=== PATIENT | female | born 1960 | race African-American/Black ===

== ENCOUNTER 2016-06-18 11:55 | Emergency (ER) | payer OTHER ==
[2016-06-18 12:09] VITALS: TEMP 98.5; BMI 30.2
--- NOTE | 2016-06-18 13:33 | PDOC ---
History of Present Illness - History of Present Illness Initial Comments: 06/18/16 16:48 "The patient is a 55 year old female, with a significant past medical history of asthma, GERD, hypertension, bipolar disorder, s/p c-spine surgery, who presents to the emergency department with continued wheezing, cough, chest congestion, subjective fever and chills after finishing 7 days of oral antibiotics for clinical pneumonia diagnosed at her PCP office. She reports her cough is persistent and productive of white and green sputum. The patient reports chest tightness and increasing pain to her lateral chest wall and midsternal region when she coughs. Pt has no pain otherwise when she is not coughing. She denies chest pain, shortness of breath, headache and dizziness. She denies fever, chills, nausea, vomit, diarrhea and constipation. She denies dysuria, frequency, urgency and hematuria. Allergies: acetaminophen, erythromycin, Toradol, Vicodin, Penicillin Social history: tobacco and marijuana use daily PCP - Dr. Ambriz " <Silvia Chapman - Last Filed: 06/18/16 16:48> <Leo Romero - Last Filed: 06/18/16 17:48> - General Chief Complaint: Cold Symptoms Stated Complaint: PNEUMONIA Time Seen by Provider: 06/18/16 12:52 Past History <Silvia Chapman - Last Filed: 06/18/16 16:48> - Past Medical History Anemia: No Asthma: Yes Cancer: No Cardiac Disorders: No CVA: No COPD: No CHF: No Dementia: No Diabetes: No GI Disorders: Yes (gerd) Disorders: No HTN: Yes (on meds) Hypercholesterolemia: Yes Liver Disease: No Psychiatric Problems: Yes (bipolar) Suicide Attempt (Hx): No Seizures: No Thyroid Disease: No - Surgical History Abdominal Surgery: Yes Appendectomy: No Cardiac Surgery: No Cholecystectomy: Yes (1999) Lung Surgery: No Neurologic Surgery: Yes (cervical discectomy and decompression 2012) Orthopedic Surgery: Yes (C-Spine) - Immunization History Immunization Up to Date: Yes - Psycho/Social/Smoking Cessation Hx Anxiety: No Suicidal Ideation: No Smoking Status: No Smoking History: Current every day smoker Years of Tobacco Use: 10 Have you smoked in the past 12 months: Yes Number of Cigarettes Smoked Daily: 1 Cigars Per Day: 0 Information on smoking cessation initiated: No 'Breaking Loose' booklet given: 10/28/16 Hx Alcohol Use: No Drug/Substance Use Hx: Yes Substance Use Type: Cocaine, Marijuana Hx Substance Use Treatment: Yes (2007 rehab) <Leo Romero - Last Filed: 06/18/16 17:48> - Past Medical History Allergies/Adverse Reactions: Allergies Allergy/AdvReac Type Severity Reaction Status Date / Time aspirin Allergy Hives Verified 06/18/16 12:06 cyclobenzaprine HCl Allergy Hives Verified 06/18/16 12:06 [From Flexeril] erythromycin base Allergy Hives Verified 06/18/16 12:06 [Erythromycin Base] iodine [Iodine] Allergy Hives Verified 06/18/16 12:06 ketorolac tromethamine Allergy Hives Verified 06/18/16 12:06 [From Toradol] Penicillins Allergy Hives Verified 06/18/16 12:06 propoxyphene napsylate Allergy Hives Verified 06/18/16 12:06 [From Darvocet-N 100] theophylline anhydrous Allergy Hives Verified 06/18/16 12:06 [From Seth-Dur] doxycycline AdvReac Itching Verified 06/18/16 12:06 lactose [Lactose] AdvReac Verified 06/18/16 12:06 SEAFOOD Allergy Hives Uncoded 06/18/16 12:06 Home Medications: Ambulatory Orders Albuterol 2.5/Ipratropium 0.5 [Duoneb -] 1 neb IH QID 12/18/14 Atorvastatin Ca [Lipitor] 40 mg PO HS 12/18/14 Carbamazepine 100 mg PO DAILY 12/18/14 Docusate Sodium [Colace -] 300 mg PO DAILY 12/18/14 Fluticasone/Salmeterol [Advair 250-50 Diskus] 1 each IH DAILY 12/18/14 Olmesartan/Amlodipin/Hcthiazid [Tribenzor 20-5-12.5 mg Tablet] 1 each PO DAILY 12/18/14 Sertraline HCl [Zoloft] 100 mg PO BID 12/18/14 Trazodone HCl [Oleptro ER] 150 mg PO HS 12/18/14 FENTANYL 50mcg PATCH [DURAGESIC 50mcg PATCH -] 1 each TD Q72H 12/03/15 Carbamazepine Xr [Tegretol XR -] 200 mg PO HS 12/04/15 Clonazepam [Klonopin -] 0.5 mg PO DAILY PRN 02/07/16 Oxycodone HCl/Acetaminophen [Percocet 10-325 mg Tablet] 1 each PO TID PRN Respiratory Specific PMHX - Complaint Specific PMHX Angina: No <Leo Romero - Last Filed: 06/18/16 17:48> Review of Systems - Review of Systems Able to Perform ROS?: Yes Comments:: 06/18/16 16:48 CONSTITUTIONAL: (+) subjective fever, Chills, No reported: Diaphoresis, Generalized Weakness, Malaise, Loss of Appetite HEENT: No reported: Rhinorrhea, Nasal Congestion, Throat Pain, Throat Swelling, Difficulty Swallowing, Mouth Swelling, Ear Pain, Eye Pain, Visual Changes CARDIOVASCULAR: No reported: Chest pain, Syncope, Palpitations, Irregular Heart Rate, Lightheadedness, Peripheral Edema RESPIRATORY: (+) Cough, wheezing, and chest congestion. No reported: Shortness of Breath, SOB with Exertion, Orthopnea, Wheezing, Stridor, Hemoptysis GASTROINTESTINAL: No reported: Abdominal pain, Abdominal Distension, Nausea, Vomiting, Diarrhea, Constipation, Melena, Hematochezia GENITOURINARY: No reported: Dysuria, Frequency, Urgency, Hesitancy, Flank Pain, Genital Pain MUSCULOSKELETAL: No reported: Myalgia, Arthralgia, Joint Swelling, Back pain, Neck Pain SKIN: No reported: Rash, Itching, Pallor HEMEATOLOGIC/IMMUNOLOGIC: No reported: Easy Bleeding, Easy Bruising, Lymphadenopathy, Frequent infections ENDOCRINE: No reported: Unexplained Weight Gain, Unexplained Weight Loss, Heat Intolerance , Cold Intolerance NEUROLOGIC: No reported: Headache, Focal Weakness, Paresthesias, Vertigo, Lightheadedness, Unsteady Gait, Seizure, Mental Status Changes, Incontinence PSYCHIATRIC: No reported: Anxiety, Depression <Silvia Chapman - Last Filed: 06/18/16 16:48> *Physical Exam - Vital Signs Last Vital Signs Temp Pulse Resp BP Pulse Ox 98.5 F 59 L 20 149/71 99 06/18/16 12:06 06/18/16 12:06 06/18/16 12:06 06/18/16 12:06 06/18/16 12:06 - Physical Exam Comments: 06/18/16 16:48 GENERAL: The patient is awake, alert, and fully oriented, Nontoxic - in no acute distress. HEAD: Normocephalic, atraumatic. EYES: extraocular movements intact, sclera anicteric, conjunctiva clear. ENT: (+) enlarged tonsils bilaterally w/o erythema or induration,. Normal voice , Moist mucous membranes. NECK: Normal range of motion, supple LUNGS: Breath sounds equal, clear to auscultation bilaterally. No wheezes, no rhonchi, no rales. HEART: Regular rate and rhythm, without murmur, rub or gallop. ABDOMEN: Soft, nontender, normoactive bowel sounds. No guarding, no rebound.No CVA tenderness EXTREMITIES: Normal range of motion, no edema. No clubbing or cyanosis. No cords, erythema, or tenderness. NEUROLOGICAL: No facial assymetry, Normal speech, PSYCH: Normal mood, normal affect. SKIN: Warm, Dry, normal turgor, <Silvia Chapman - Last Filed: 06/18/16 16:48> - Vital Signs Last Vital Signs Temp Pulse Resp BP Pulse Ox 98.5 F 59 L 20 149/71 99 06/18/16 12:06 06/18/16 12:06 06/18/16 12:06 06/18/16 12:06 06/18/16 12:06 <Leo Romero - Last Filed: 06/18/16 17:48> Heart Score/ECG Review - ECG Impressions Comment:: 06/18/16 13:50 Twelve-lead EKG was performed and reviewed by me. There is normal sinus rhythm Rate of 54 Left axis deviation The intervals are normal. There is normal R wave progression There are no ST or T wave abnormalities. <Leo Romero - Last Filed: 06/18/16 17:48> ED Treatment Course - LABORATORY CBC & Chemistry Diagram: 06/18/16 13:22 06/18/16 13:22 - ADDITIONAL ORDERS Additional order review: Laboratory Results 06/18/16 13:22 Sodium 144 Potassium 3.9 Chloride 106 Carbon Dioxide 30 Anion Gap 8 BUN 7 Creatinine 0.5 L Creat Clearance w eGFR > 60 Random Glucose 90 Calcium 8.7 Total Bilirubin 0.2 D AST 19 D ALT 24 D Alkaline Phosphatase 70 Total Protein 6.8 Albumin 3.8 06/18/16 13:29 Influenza Types A,B Antigen (OCTAVIANO) - Final Nasopharyngeal Swab - Final 06/18/16 13:22 RBC 3.57 L MCV 91.0 MCHC 32.8 RDW 14.2 MPV 7.7 Neutrophils % 50.1 Lymphocytes % 44.3 H D Monocytes % 3.6 L Eosinophils % 1.5 Basophils % 0.5 - Medications Given in the ED: ED Medications Discontinued Medications Generic Name Dose Route Start Last Admin Trade Name Jayson PRN Reason Stop Dose Admin Acetaminophen 650 mg 06/18/16 13:49 06/18/16 14:44 Tylenol - PO 06/18/16 13:50 Not Given ONCE ONE Albuterol/Ipratropium 1 amp 06/18/16 13:35 06/18/16 14:43 Duoneb - NEB 06/18/16 13:36 1 amp ONCE ONE Administration Sodium Chloride 1,000 mls @ 1,000 mls/hr 06/18/16 13:49 06/18/16 14:43 Normal Saline - IV 06/18/16 14:48 1,000 mls/hr .Q1H ONE Administration <Silvia Chapman - Last Filed: 06/18/16 16:48> - LABORATORY CBC & Chemistry Diagram: 06/18/16 13:22 06/18/16 13:22 - RADIOLOGY Radiology Studies Ordered: Category Date Time Status CHEST X-RAY PORTABLE* [RAD] Stat Radiology 06/18/16 13:17 Ordered <Leo Romero - Last Filed: 06/18/16 17:48> Medical Decision Making - Medical Decision Making 06/18/16 13:50 55-year-old female history of hl, htn, asthma, chronic back pain on fentanyl patch, bipolar sent to the ED for evaluation of sob/cough for the past week - initially had significant nasal congetion, and cough productive of yellowish/ green sputum with subjective fever/chills, +sick contacts (daughter with sypmtoms week prior to her). On exam the pt is well appearing in no acute distress with clear lungs and normal vitals. suspect likely viral syndrome, possible influenza, will obtain xray to r/o pna will treat supportively with fluids, tylenol will reassess A portion of this note was documented by scribe services under my direction. I have reviewed the details of the note, within reason, and agree with the documentation with the following case summary and management plan written by me 06/18/16 16:08 labs unremarakble cxr clear flu negative suspect viral syndrome/uri will d/c with supportive mangaement at home 06/18/16 16:46 pt feeling significantly improved currently asypmtomatic will d/c with pmd fu return precautions were discussed I discussed the physical exam findings, ancillary test results and final diagnoses with the patient. I answered all of the patient's questions. The patient was satisfied with the care received and felt comfortable with the discharge plan and treatment plan. The patient will call their primary care physician within 24 hours to arrange follow-up and will return to the Emergency Department with any new, persistent or worsening symptoms. <Leo Romero - Last Filed: 06/18/16 17:48> *DC/Admit/Observation/Transfer - Attestations Scribe Attestion: 06/18/16 16:49 Documentation prepared by Silvia Chapman, acting as clinical medical transcriptionist for Leo Romero MD, MD <Silvia Chapman - Last Filed: 06/18/16 16:48> - Discharge Dispostion Admit: No <Leo Romero - Last Filed: 06/18/16 17:48> Diagnosis at time of Disposition: Upper respiratory infection Qualifiers: URI type: unspecified viral URI Qualified Code(s): J06.9 - Acute upper respiratory infection, unspecified - Discharge Dispostion Disposition: HOME Condition at time of disposition: Improved - Referrals Referrals: Myrna Ambriz MD [Primary Care Provider] - - Patient Instructions Printed Discharge Instructions: DI for Viral Upper Respiratory Infection -- Adult Additional Instructions: Return to the emergency department immediately with ANY new, persistent or worsening symptoms. You MUST call and follow up with your doctor tomorrow for further evaluation of your symptoms. Results were discussed with you. Please make sure your doctor reviews the results of your emergency evaluation. If you had any xrays during your visit, it was read preliminarily by myself, a Radiologist will review it and if there are any additional findings we will call you. Print Language: [id number]
[2016-06-18] MEDS ORDERED: ALBUTEROL SO4 2.5/IPRATROPIUM 0.5 INH SOL 3 ML VIAL.NEB. NEB ONE ×2 (13:35→14:37)
[2016-06-18 13:39] LABS: BASOPHIL 0.5 % (0-2.0); EOSINOPHIL 1.5 % (0-4.5); MCH 29.9 pg (25.7-33.7); MCHC 32.8 g/dl (32.0-36.0); MEAN PLT VOLUME 7.7 fl (7.5-11.1); NEUTROPHILS 50.1 % (42.8-82.8); PLATELET COUNT 160 K/MM3 (134-434); RDW 14.2 % (11.6-15.6)
[2016-06-18] MEDS ORDERED: SODIUM CHLORIDE 1,000 ML IV ONE (13:49)
[2016-06-18] MEDS ORDERED: ACETAMINOPHEN 325 MG TABLET (FP) PO ONE (13:49)
[2016-06-18 14:04] LABS: ALBUMIN 3.8 g/dl (3.4-5.0); ALK PHOS 70 U/L (45-117); ANION GAP 8 (8-16); BILIRUBIN,TOTAL 0.2 mg/dL (0.2-1.0); CALCIUM 8.7 mg/dL (8.5-10.1); CO2 30 mmol/L (21-32); CREATININE 0.5 mg/dL (0.55-1.02); GLUCOSE,RANDOM 90 mg/dL (74-106); SGOT/AST 19 U/L (15-37); SGPT/ALT 24 U/L (12-78); TOT PROT 6.8 g/dl (6.4-8.2)
[2016-06-18] MEDS ORDERED: ACETAMINOPHEN 325 MG TABLET (FP) ONE (14:37)
[2016-06-18] MEDS ORDERED: KETOROLAC TROMETHAMINE 30 MG/1 ML VIAL ONE (15:15)
--- NOTE | 2016-06-18 15:57 | EKG ---
Test Reason : Blood Pressure : / mmHG Vent. Rate : 054 BPM Atrial Rate : 054 BPM P-R Int : 178 ms QRS Dur : 082 ms QT Int : 448 ms P-R-T Axes : 062 -34 065 degrees QTc Int : 424 ms POOR DATA QUALITY, INTERPRETATION MAY BE ADVERSELY AFFECTED SINUS BRADYCARDIA LEFT AXIS DEVIATION ABNORMAL ECG WHEN COMPARED WITH ECG OF 18-JUN-2016 12:20, NO SIGNIFICANT CHANGE WAS FOUND Confirmed by PATRICIO MALLORY, LOI ([id number]) on 06/18/2016 3:57:02 PM Referred By: Confirmed By:LOI CURRY MD
[2016-06-18] MEDS ORDERED: diphenhydrAMINE HCL 25 MG CAPSULE (FP) PO ONE (16:16)
[2016-06-18 17:12] VITALS: BP 152/68; PULSE 72
--- NOTE | 2016-06-20 14:57 | EKG ---
Test Reason : Blood Pressure : / mmHG Vent. Rate : 052 BPM Atrial Rate : 052 BPM P-R Int : 168 ms QRS Dur : 086 ms QT Int : 448 ms P-R-T Axes : 068 -21 062 degrees QTc Int : 416 ms SINUS BRADYCARDIA POOR R WAVE PROGRESSION WHEN COMPARED WITH ECG OF 04-DEC-2015 12:35, NO SIGNIFICANT CHANGE WAS FOUND Confirmed by AMARILIS DUMONT MD ([id number]) on 06/20/2016 2:57:21 PM Referred By: Confirmed By:AMARILIS DUMONT MD
== END 2016-06-18 17:13 | disposition home or self-care (01) ==
LOC: JER 11:55
PROC: 3E0337Z Introduction of Electrolytic and Water Balance Substance into Peripheral Vein, Percutaneous Approach (ICD-10-PCS; principal; 2016-06-18)
PROC: 3E0F7GC Introduction of Other Therapeutic Substance into Respiratory Tract, Via Natural or Artificial Opening (ICD-10-PCS; 2016-06-18)
DX: J06.9 Acute upper respiratory infection, unspecified (principal); B97.89 Other viral agents as the cause of diseases classified elsewhere; I10 Essential (primary) hypertension; E78.5 Hyperlipidemia, unspecified; E78.00 Pure hypercholesterolemia, unspecified; J45.909 Unspecified asthma, uncomplicated; F31.9 Bipolar disorder, unspecified; M54.5 Low back pain
CPT/HCPCS: 36415; 71010-TC; 80053; 85025; 87040; 87804; 93005; 93010; 99284-25

== ENCOUNTER 2016-09-04 23:58 | Emergency (ER) | payer OTHER ==
[2016-09-05 00:15] VITALS: BP 120/85; PULSE 81; TEMP 99.5; BMI 26.4
[2016-09-05] MEDS ORDERED: ACETAMINOPHEN 1000 MG/100 ML VIAL (NON FORMULARY) IVPB ONE (00:58)
[2016-09-05] MEDS ORDERED: morphine CARPU-JECT 2 MG/1 ML DISP.SYRIN IVPUSH ONE (00:58)
[2016-09-05] MEDS ORDERED: MAG HYDROX/AL HYDROX/SIMETH 30 ML UNIT-DOSE CUP PO ONE (01:00)
[2016-09-05] MEDS ORDERED: FAMOTIDINE 20 MG/50 ML IVPB 50 ML IVPB ONE ×2 (01:00→01:19)
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
[2016-09-05] MEDS ORDERED: morphine CARPU-JECT 2 MG/1 ML DISP.SYRIN ONE (01:18)
[2016-09-05] MEDS ORDERED: MAG HYDROX/AL HYDROX/SIMETH 30 ML UNIT-DOSE CUP ONE (01:19)
[2016-09-05] MEDS ORDERED: ACETAMINOPHEN INJECTION 100 ML IVPB ONE (01:19)
[2016-09-05] MEDS ORDERED: ONDANSETRON 4 MG TABLET PO ONE (03:12)
== END 2016-09-05 04:58 | disposition left against medical advice (07) ==
LOC: JER 23:58
PROC: 3E033GC Introduction of Other Therapeutic Substance into Peripheral Vein, Percutaneous Approach (ICD-10-PCS; principal; 2016-09-04)
PROC: 3E033NZ Introduction of Analgesics, Hypnotics, Sedatives into Peripheral Vein, Percutaneous Approach (ICD-10-PCS; 2016-09-04)
PROC: 3E033NZ Introduction of Analgesics, Hypnotics, Sedatives into Peripheral Vein, Percutaneous Approach (ICD-10-PCS; 2016-09-04)
DX: R10.32 Left lower quadrant pain (principal); I10 Essential (primary) hypertension; F31.9 Bipolar disorder, unspecified; J45.909 Unspecified asthma, uncomplicated; K21.9 Gastro-esophageal reflux disease without esophagitis
CPT/HCPCS: 96365; 96375; 99282-25

== ENCOUNTER 2016-09-05 13:10 | Emergency (ER) | payer OTHER ==
[2016-09-05 13:58] VITALS: TEMP 98.5; BMI 30.9
[2016-09-05] MEDS ORDERED: ONDANSETRON *ODT* 4 MG TABLET ONE (14:19)
[2016-09-05] MEDS ORDERED: ONDANSETRON *ODT* 4 MG TABLET SL ONE (14:26)
--- NOTE | 2016-09-05 14:27 | PDOC ---
History of Present Illness - General Chief Complaint: Pain Stated Complaint: ABDOMINAL PAIN Time Seen by Provider: 09/05/16 13:55 History Source: Patient Exam Limitations: No Limitations - History of Present Illness Initial Comments: 09/05/16 14:21 Patient's return to emergency department with multiple complaints . Patient came to emergency department via ambulance last night with multiple complaints primarily abdominal pain but was belligerent, combative, and uncooperative with any testing or care. Patient left the emergency department AGAINST MEDICAL ADVICE with IV, refusing to allow any provider remove the catheter. Police was notified, and Empress returned to patient's home and remove the catheter. Patient rested at home for a few hours, but then called EMS to return to her home and bring her back to the hospital with continued complaints of abdominal pain. With exam patient is alert, has been cooperative with questioning and states that she feels constipated, although had a normal bowel movement today. Denies fever but has felt feverish, states is coughing with no phlegm. 09/05/16 14:34 09/05/16 14:38 09/08/16 14:37 Occurred: reports: just prior to arrival Severity: reports: mild Pain Location: reports: none, abdomen Method of Injury: Yes: unknown Modifying Factors: improves with: None Loss of Consciousness: no loss of consciousness Associated Symptoms (Fall): denies symptoms, headache Past History - Travel Traveled outside of the country in the last 30 days: No Close contact w/someone who was outside of country & ill: No - Past Medical History Allergies/Adverse Reactions: Allergies Allergy/AdvReac Type Severity Reaction Status Date / Time aspirin Allergy Hives Verified 09/05/16 13:28 cyclobenzaprine HCl Allergy Hives Verified 09/05/16 13:28 [From Flexeril] erythromycin base Allergy Hives Verified 09/05/16 13:28 [Erythromycin Base] iodine [Iodine] Allergy Hives Verified 09/05/16 13:28 ketorolac tromethamine Allergy Hives Verified 09/05/16 13:28 [From Toradol] Penicillins Allergy Hives Verified 09/05/16 13:28 propoxyphene napsylate Allergy Hives Verified 09/05/16 13:28 [From Darvocet-N 100] theophylline anhydrous Allergy Hives Verified 09/05/16 13:28 [From Seth-Dur] doxycycline AdvReac Itching Verified 09/05/16 13:28 lactose [Lactose] AdvReac Verified 09/05/16 13:28 SEAFOOD Allergy Hives Uncoded 09/05/16 13:28 Home Medications: Ambulatory Orders Atorvastatin Ca [Lipitor] 40 mg PO HS 12/18/14 Fluticasone/Salmeterol [Advair 250-50 Diskus] 1 each IH BID 12/18/14 Olmesartan/Amlodipin/Hcthiazid [Tribenzor 20-5-12.5 mg Tablet] 1 each PO DAILY 12/18/14 Sertraline HCl [Zoloft] 200 mg PO DAILY 12/18/14 Trazodone HCl [Oleptro ER] 150 mg PO HS 12/18/14 Carbamazepine Xr [Tegretol XR -] 100 mg PO AM 12/04/15 Clonazepam [Klonopin -] 1 mg PO BID 02/07/16 Albuterol 0.083% Nebulizer Karin [Ventolin 0.083% Nebulizer Soln -] 1 amp NEB TID PRN 09/05/16 Guaifenesin/Dextromethorphan [Tussin Dm Syrup] 5 ml PO Q4HWA PRN 09/05/16 Hydrocodone/Acetaminophen [Vicodin 5-300 mg Tablet] 1 each PO QID PRN 09/05/16 Omeprazole 40 mg PO DAILY 09/05/16 Sodium Phosphate/Na Biphos [Fleet Adult Rectal Enema -] 133 ml RC ONCE #2 enema 09/05/16 Anemia: No Asthma: Yes Cancer: No Cardiac Disorders: No CVA: No COPD: No CHF: No Dementia: No Diabetes: No GI Disorders: Yes (gerd) Disorders: No HTN: Yes (on meds) Hypercholesterolemia: Yes Liver Disease: No Psychiatric Problems: Yes (bipolar) Suicide Attempt (Hx): No Seizures: No Thyroid Disease: No - Surgical History Abdominal Surgery: Yes Appendectomy: No Cardiac Surgery: No Cholecystectomy: Yes (1999) Lung Surgery: No Neurologic Surgery: Yes (cervical discectomy and decompression 2012) Orthopedic Surgery: Yes (C-Spine) - Immunization History Immunization Up to Date: Yes - Psycho/Social/Smoking Cessation Hx Anxiety: No Suicidal Ideation: No Smoking Status: No Smoking History: Former smoker Years of Tobacco Use: 10 Have you smoked in the past 12 months: No Number of Cigarettes Smoked Daily: 1 Cigars Per Day: 0 Information on smoking cessation initiated: No 'Breaking Loose' booklet given: 02/07/16 Hx Alcohol Use: No Drug/Substance Use Hx: No Substance Use Type: Cocaine, Marijuana Hx Substance Use Treatment: Yes (2007 rehab) Trauma Specific PMHX - Complaint Specific PMHX Arthritis: Yes Review of Systems - Review of Systems Able to Perform ROS?: Yes Is the patient limited Maori proficient: Yes Constitutional: Yes: Symptoms Reported, See HPI, Malaise HEENTM: Yes: Symptoms Reported Respiratory: Yes: Symptoms reported ABD/GI: Yes: Symptoms Reported, See HPI, Constipated, Nausea : Yes: Symptoms Reported Musculoskeletal: Yes: See HPI. No: Symptoms Reported Integumentary: Yes: Symptoms Reported Psychiatric: Yes: Anxiety, Emotional Problems All Other Systems: Reviewed and Negative *Physical Exam - Vital Signs Last Vital Signs Temp Pulse Resp BP Pulse Ox 98.5 F 70 19 147/82 97 09/05/16 13:35 09/05/16 13:35 09/05/16 13:35 09/05/16 13:35 09/05/16 13:35 - Physical Exam General Appearance: Yes: Nourished, Appropriately Dressed HEENT: positive: EOMI, MACIEJ, Normal ENT Inspection, TMs Normal Neck: positive: Supple. negative: Tender, Lymphadenopathy (R), Lymphadenopathy (L) Respiratory/Chest: positive: Lungs Clear, Normal Breath Sounds Cardiovascular: positive: Regular Rhythm Gastrointestinal/Abdominal: positive: Normal Bowel Sounds, Soft. negative: Tender, Guarding, Rebound (no rebound or guarding), Tenderness, Hepatomegaly, Spleenomegaly Extremity: positive: Normal Capillary Refill, Normal Inspection, Normal Range of Motion Integumentary: positive: Normal Color, Pale Neurologic: positive: engineering inspector II-XII NML intact, Fully Oriented, Alert, Normal Mood/ Affect, Normal Response, Motor Strength 5/5 Progress Note - Progress Note Progress Note: Patient with abdominal pain and concerns of constipation. Will obtain urinalysis to rule out urinary tract infection, as points to suprapubic area, and flat and upright. Medical Decision Making - Medical Decision Making 09/08/16 14:39 Flat and upright shows significant stool in transverse and descending colon. Urinalysis is negative. Patient given fleets enema to take home, and prescription for more. Patient has used those in the past and understands her use and will follow up with her PCP *DC/Admit/Observation/Transfer Diagnosis at time of Disposition: Generalized abdominal pain Constipation Qualifiers: Constipation type: other constipation type Qualified Code(s): K59.09 - Other constipation - Discharge Dispostion Disposition: HOME Condition at time of disposition: Stable Admit: No - Prescriptions Prescriptions: Sodium Phosphate/Na Biphos [Fleet Adult Rectal Enema -] 133 ml RC ONCE #2 enema - Referrals Referrals: Daphney Saenz [Primary Care Provider] - - Patient Instructions Printed Discharge Instructions: DI for Constipation Additional Instructions: Rest, drink lots of fluids: Teas, water, soups Armida aurelio, carbonated beverages for the bubbles May try peppermint teas Avoid heavy , spicy or fatty foods until symptoms have resolved Avoid contact with others until fevers and symptoms resolved Lots of handwashing and good hygiene USe Fleets at home Continue [id number] medications for symptomatic relief Tylenol or Motrin for fever and pain Followup with private physician in one to 2 days as needed Return to emergency department for worsened symptoms, fevers, dehydration
[2016-09-05] MEDS ORDERED: ACETAMINOPHEN 650 MG/20.3 ML ORAL SOLUTION (CUPS) ONE (14:40)
[2016-09-05] MEDS ORDERED: ACETAMINOPHEN 325 MG TABLET (FP) PO ONE (14:45)
[2016-09-05] MEDS ORDERED: QUEtiapine FUMARATE 100 MG TABLET (FP) PO ONE (15:13)
[2016-09-05] MEDS ORDERED: QUEtiapine FUMARATE 100 MG TABLET (FP) ONE (15:25)
[2016-09-05 15:44] LABS: URINE APPEARANCE CLEAR; URINE BILIRUBIN NEGATIVE (NEGATIVE); URINE BLOOD NEGATIVE (NEGATIVE); URINE COLOR DKYELLOW; URINE GLUCOSE (UA) NEGATIVE (NEGATIVE); URINE KETONE TRACE (NEGATIVE); URINE LEUK ESTERASE NEGATIVE (NEGATIVE); URINE NITRITE NEGATIVE (NEGATIVE); URINE UROBILINOGEN 4.0 E.U/dl E.U./dl (0.2-1.0)
[2016-09-05 15:48] LABS: URINE PROTEIN 1+ (NEGATIVE)
[2016-09-05 15:50] LABS: URINE MUCUS MODERATE; URINE WBC 1 /hpf (3-5)
[2016-09-05] MEDS ORDERED: SODIUM PHOSPHATE/NA BIPHOS 133 ML ENEMA PR ONE (16:03)
[2016-09-05 16:46] VITALS: BP 124/57; PULSE 61
--- NOTE | 2016-09-14 11:45 | EKG ---
Test Reason : Blood Pressure : / mmHG Vent. Rate : 071 BPM Atrial Rate : 071 BPM P-R Int : 156 ms QRS Dur : 090 ms QT Int : 416 ms P-R-T Axes : 072 -29 073 degrees QTc Int : 452 ms NORMAL SINUS RHYTHM NORMAL ECG WHEN COMPARED WITH ECG OF 18-JUN-2016 13:43, NO SIGNIFICANT CHANGE WAS FOUND Confirmed by SMOOTH SHERWOOD MD ([id number]) on 09/14/2016 11:45:39 AM Referred By: Confirmed By:SMOOTH SHERWOOD MD
== END 2016-09-05 16:46 | disposition home or self-care (01) ==
LOC: JER 13:10
DX: R10.84 Generalized abdominal pain (principal); K21.9 Gastro-esophageal reflux disease without esophagitis; F31.9 Bipolar disorder, unspecified; J45.909 Unspecified asthma, uncomplicated; I10 Essential (primary) hypertension; E78.00 Pure hypercholesterolemia, unspecified
CPT/HCPCS: 74020-TC; 81003; 81015; 87086; 93005; 93010; 99282-25

== ENCOUNTER 2016-12-15 13:55 | Emergency (ER) | payer OTHER ==
[2016-12-15 14:40] VITALS: BP 126/82; PULSE 65; TEMP 98.3; BMI 26.1
--- NOTE | 2016-12-15 14:55 | PDOC ---
History of Present Illness - General Chief Complaint: Pain Stated Complaint: INJURY Time Seen by Provider: 12/15/16 14:49 History Source: Patient Exam Limitations: No Limitations - History of Present Illness Initial Comments: 12/15/16 14:51 patient Well-known to me and currently involved in pain management program for chronic back pain. Comes to this emergency Department with complaints of neck and left shoulder pain status post injury occurred at home yesterday. States beer fell off while striking her in the head and causing her to fall backwards and wrenching her back. Is here requesting pain medication and antispasmodic medication. Has appointment with Dr. Bajwa and in 2 days and her pain management physician on December 21. 12/15/16 22:00 Occurred: reports: yesterday Severity: reports: mild, moderate Modifying Factors: improves with: None Associated Symptoms (Fall): denies symptoms Past History - Travel Traveled outside of the country in the last 30 days: No Close contact w/someone who was outside of country & ill: No - Past Medical History Allergies/Adverse Reactions: Allergies Allergy/AdvReac Type Severity Reaction Status Date / Time aspirin Allergy Hives Verified 09/05/16 13:28 cyclobenzaprine HCl Allergy Hives Verified 09/05/16 13:28 [From Flexeril] erythromycin base Allergy Hives Verified 09/05/16 13:28 [Erythromycin Base] iodine [Iodine] Allergy Hives Verified 09/05/16 13:28 ketorolac tromethamine Allergy Hives Verified 09/05/16 13:28 [From Toradol] Penicillins Allergy Hives Verified 09/05/16 13:28 propoxyphene napsylate Allergy Hives Verified 09/05/16 13:28 [From Darvocet-N 100] theophylline anhydrous Allergy Hives Verified 09/05/16 13:28 [From Seth-Dur] doxycycline AdvReac Itching Verified 09/05/16 13:28 lactose [Lactose] AdvReac Verified 09/05/16 13:28 SEAFOOD Allergy Hives Uncoded 09/05/16 13:28 Home Medications: Ambulatory Orders Atorvastatin Ca [Lipitor] 40 mg PO HS 12/18/14 Fluticasone/Salmeterol [Advair 250-50 Diskus] 1 each IH BID 12/18/14 Olmesartan/Amlodipin/Hcthiazid [Tribenzor 20-5-12.5 mg Tablet] 1 each PO DAILY 12/18/14 Sertraline HCl [Zoloft] 200 mg PO DAILY 12/18/14 Trazodone HCl [Oleptro ER] 150 mg PO HS 12/18/14 Carbamazepine Xr [Tegretol XR -] 100 mg PO AM 12/04/15 Clonazepam [Klonopin -] 1 mg PO HS PRN 02/07/16 Albuterol 0.083% Nebulizer Karin [Ventolin 0.083% Nebulizer Soln -] 1 amp NEB TID PRN 09/05/16 Omeprazole 40 mg PO DAILY 09/05/16 Docusate Sodium [Colace -] 100 mg PO TID 10/23/16 Oxycodone HCl/Acetaminophen [Percocet 10-325 mg Tablet] 1 each PO TID PRN #90 tablet MDD 3 11/23/16 Methocarbamol [Robaxin -] 1,500 mg PO Q8H PRN #10 tablet 12/15/16 Oxycodone HCl/Acetaminophen [Percocet 5-325 mg Tablet -] 1 - 2 tab PO Q4H PRN # 7 tablet MDD 4 12/15/16 Anemia: No Asthma: Yes Cancer: No Cardiac Disorders: No CVA: No COPD: No CHF: No Dementia: No Diabetes: No GI Disorders: Yes (gerd) Disorders: No HTN: Yes (on meds) Hypercholesterolemia: Yes Liver Disease: No Psychiatric Problems: Yes (bipolar) Suicide Attempt (Hx): No Seizures: No Thyroid Disease: No - Surgical History Abdominal Surgery: Yes Appendectomy: No Cardiac Surgery: No Cholecystectomy: Yes (1999) Lung Surgery: No Neurologic Surgery: Yes (cervical discectomy and decompression 2012) Orthopedic Surgery: Yes (C-Spine) - Immunization History Immunization Up to Date: Yes - Psycho/Social/Smoking Cessation Hx Anxiety: No Suicidal Ideation: No Smoking Status: No Smoking History: Current every day smoker Years of Tobacco Use: 10 Have you smoked in the past 12 months: Yes Number of Cigarettes Smoked Daily: 3 Cigars Per Day: 0 Information on smoking cessation initiated: No 'Breaking Loose' booklet given: 02/07/16 Hx Alcohol Use: No Drug/Substance Use Hx: No Substance Use Type: Cocaine, Marijuana Hx Substance Use Treatment: Yes (2007 rehab) Trauma Specific PMHX - Complaint Specific PMHX Arthritis: Yes Review of Systems - Review of Systems Able to Perform ROS?: Yes Is the patient limited Armenian proficient: Yes Constitutional: Yes: See HPI. No: Symptoms Reported, Chills, Fever HEENTM: Yes: See HPI. No: Symptoms Reported Respiratory: Yes: See HPI. No: Symptoms reported Musculoskeletal: Yes: Symptoms Reported, See HPI, Back Pain, Joint Pain *Physical Exam - Vital Signs Last Vital Signs Temp Pulse Resp BP Pulse Ox 98.3 F 65 18 126/82 97 12/15/16 14:34 12/15/16 14:34 12/15/16 14:34 12/15/16 14:34 12/15/16 14:34 - Physical Exam General Appearance: Yes: Appropriately Dressed, Apparent Distress HEENT: positive: MACIEJ, Normal ENT Inspection, TMs Normal, Pharynx Normal Neck: positive: Supple, Other (no midline tenderness, has some mild tense musculature to the paravertebral spinous muscles, mild spasm palpated to the left side upper trapezius and base of sternocleidomastoid. Range of motion is intact). negative: Tender Cardiovascular: positive: Regular Rhythm Musculoskeletal: positive: Normal Inspection, Decreased Range of Motion, Other ( NECK AND LEFT SHOULDER AT Shoulder capsule. Reports is immobile and Left arm however able to lift over-shoulder and grab across the stretcher. Has strong grasp, flexion and extension). negative: Vertebral Tenderness Extremity: positive: Normal Inspection. negative: Normal Capillary Refill Integumentary: positive: Normal Color, Dry, Warm. negative: Ecchymosis, Bruising Neurologic: positive: frickertron checker II-XII NML intact, Fully Oriented, Normal Mood/Affect , Normal Response, Motor Strength 5/5 Progress Note - Progress Note Progress Note: Mild neck spasm, will treat with Robaxin 7 tablets, and given 7 Percocet tablets patient understands knees to follow-up with PMD and pain management for any further narcotics or other altering medications. *DC/Admit/Observation/Transfer Diagnosis at time of Disposition: Spasm of back muscles - Discharge Dispostion Disposition: HOME Condition at time of disposition: Stable Admit: No - Prescriptions Prescriptions: Oxycodone HCl/Acetaminophen [Percocet 5-325 mg Tablet -] 1 - 2 tab PO Q4H PRN # 7 tablet MDD 4 PRN Reason: Pain Methocarbamol [Robaxin -] 1,500 mg PO Q8H PRN #10 tablet PRN Reason: Muscle Spasms - Referrals Referrals: Daphney Saenz [Primary Care Provider] - - Patient Instructions Printed Discharge Instructions: DI for Back Spasm Additional Instructions: Rest, no heavy lifting or exercise until pain is resolved Hot soaks to neck and low back as often as possible/hot showers or Jacuzzis No massage or therapy until spasm is gone Continue Tylenol -3252 mg tablets every 6 hours for the next 3 days then as needed for pain and swelling Robaxin 2-750 mg tablet every 8 hours as needed for spasm If not significant improvement within 24 hours with medication and rest regime, followup with private physician for change in medications and /or therapy.
== END 2016-12-15 15:31 | disposition home or self-care (01) ==
LOC: JERFT 13:55
DX: M62.830 Muscle spasm of back (principal); F17.210 Nicotine dependence, cigarettes, uncomplicated; W18.39XA Other fall on same level, initial encounter; Y93.89 Activity, other specified; Y92.9 Unspecified place or not applicable; J45.909 Unspecified asthma, uncomplicated; K21.9 Gastro-esophageal reflux disease without esophagitis; E78.00 Pure hypercholesterolemia, unspecified; I10 Essential (primary) hypertension; F31.9 Bipolar disorder, unspecified
CPT/HCPCS: 99281-25

== ENCOUNTER 2016-12-18 20:17 | Emergency (ER) | payer OTHER ==
[2016-12-18 20:54] VITALS: BP 154/82; PULSE 84; TEMP 97.6; BMI 28.8
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
[2016-12-18] MEDS ORDERED: HYDROmorphone HCL CARPU-JECT 2 MG/1 ML DISP.SYRIN IVPUSH ONE (22:29)
[2016-12-18] MEDS ORDERED: HYDROmorphone HCL CARPU-JECT 2 MG/1 ML DISP.SYRIN ONE (22:43)
[2016-12-19] MEDS ORDERED: ONDANSETRON 4 MG TABLET PO ONE (00:54)
[2016-12-19] MEDS ORDERED: ONDANSETRON *ODT* 4 MG TABLET ONE (00:58)
[2016-12-19] MEDS ORDERED: ONDANSETRON *ODT* 4 MG TABLET SL ONE (01:06)
== END 2016-12-19 01:51 | disposition home or self-care (01) ==
LOC: JER 20:17
PROC: 3E033NZ Introduction of Analgesics, Hypnotics, Sedatives into Peripheral Vein, Percutaneous Approach (ICD-10-PCS; principal; 2016-12-18)
DX: S09.8XXA Other specified injuries of head, initial encounter (principal); M54.2 Cervicalgia; W18.09XA Striking against other object with subsequent fall, initial encounter; Y93.89 Activity, other specified; Y92.031 Bathroom in apartment as the place of occurrence of the external cause; E78.00 Pure hypercholesterolemia, unspecified; F31.9 Bipolar disorder, unspecified; J45.909 Unspecified asthma, uncomplicated
CPT/HCPCS: 70486-TC; 72125-TC; 99281-25; 99282-25

== ENCOUNTER 2017-05-01 21:43 | Emergency (ER) | payer OTHER ==
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
[2017-05-01] MEDS ORDERED: HYDROmorphone HCL CARPU-JECT 1 MG/1 ML DISP.SYRIN IVPUSH ONE (22:20)
[2017-05-01 22:36] VITALS: BP 121/69; TEMP 98.6; BMI 26.1
[2017-05-01] MEDS ORDERED: HYDROmorphone HCL CARPU-JECT 2 MG/1 ML DISP.SYRIN ONE (22:50)
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
[2017-05-01 23:16] LABS: BASO % 0.9 % (0-2.0); EOS % 1.5 % (0-4.5); HEMATOCRIT 38.1 % (32.4-45.2); HEMOGLOBIN 12.5 GM/dL (10.7-15.3); LYMPH % 49.8 % (8-40); MCH 29.7 pg (25.7-33.7); MCHC 32.7 g/dl (32.0-36.0); MEAN CELL VOLUME 90.8 fl (80-96); MEAN PLT VOLUME 7.6 fl (7.5-11.1); MONO % 3.7 % (3.8-10.2); NEUT % 44.1 % (42.8-82.8); PLATELET COUNT 223 K/MM3 (134-434); RDW 13.5 % (11.6-15.6); WHITE BLOOD COUNT 5.2 K/mm3 (4.0-10.0)
[2017-05-01 23:38] LABS: ALBUMIN 4.5 g/dl (3.4-5.0); ALK PHOS 86 U/L (45-117); ANION GAP 8 (8-16); BILIRUBIN,TOTAL 0.2 mg/dL (0.2-1.0); BLOOD UREA NITROGEN 9 mg/dL (7-18); CALCIUM 9.2 mg/dL (8.5-10.1); CHLORIDE 102 mmol/L (98-107); CO2 32 mmol/L (21-32); CREATININE 0.7 mg/dL (0.55-1.02); GLUCOSE,RANDOM 92 mg/dL (74-106); LIPASE 101 U/L (73-393); POTASSIUM 3.7 mmol/L (3.5-5.1); SGOT/AST 36 U/L (15-37); SGPT/ALT 60 U/L (12-78); SODIUM 142 mmol/L (136-145); TOT PROT 8.4 g/dl (6.4-8.2)
[2017-05-02] MEDS ORDERED: HYDROmorphone HCL CARPU-JECT 1 MG/1 ML DISP.SYRIN IVPB ONE (00:36)
[2017-05-02] MEDS ORDERED: HYDROmorphone HCL CARPU-JECT 2 MG/1 ML DISP.SYRIN ONE (01:09)
--- NOTE | 2017-05-02 01:59 | PDOC ---
*Physical Exam - Vital Signs Last Vital Signs Temp Pulse Resp BP Pulse Ox 98.6 F 121/69 98 05/01/17 22:29 05/01/17 22:29 05/01/17 22:29 <Isrrael Phan - Last Filed: 05/02/17 01:58> - Vital Signs Last Vital Signs Temp Pulse Resp BP Pulse Ox 98.6 F 121/69 98 05/01/17 22:29 05/01/17 22:29 05/01/17 22:29 <Ila Andrade - Last Filed: 05/02/17 04:10> ED Treatment Course - LABORATORY CBC & Chemistry Diagram: 05/01/17 23:00 05/01/17 23:00 - ADDITIONAL ORDERS Additional order review: Laboratory Results 05/01/17 23:00 Sodium 142 Potassium 3.7 Chloride 102 Carbon Dioxide 32 Anion Gap 8 BUN 9 Creatinine 0.7 Creat Clearance w eGFR > 60 Random Glucose 92 Calcium 9.2 Total Bilirubin 0.2 AST 36 ALT 60 Alkaline Phosphatase 86 Total Protein 8.4 H Albumin 4.5 Lipase 101 05/01/17 23:00 Influenza Types A,B Antigen (OCTAVIANO) - Final Nasopharyngeal Aspirate - Final 05/01/17 23:00 RBC 4.20 MCV 90.8 MCHC 32.7 RDW 13.5 MPV 7.6 Neutrophils % 44.1 Lymphocytes % 49.8 H Monocytes % 3.7 L Eosinophils % 1.5 Basophils % 0.9 - RADIOLOGY Radiology Studies Ordered: Category Date Time Status ABDOMEN & PELVIS CT WITH CONTR [CT] Stat CT Scan 05/02/17 00:10 Ordered - Medications Given in the ED: ED Medications Discontinued Medications Generic Name Dose Route Start Last Admin Trade Name Freq PRN Reason Stop Dose Admin Diphenhydramine HCl 25 mg 05/02/17 01:22 05/02/17 01:36 Benadryl Injection - IVPB 05/02/17 01:23 25 mg ONCE ONE Administration Hydromorphone HCl 1 mg 05/01/17 22:20 05/01/17 23:09 Dilaudid Injection - IVPUSH 05/01/17 22:21 1 mg ONCE ONE Administration Hydromorphone HCl 1 mg 05/02/17 00:36 05/02/17 01:32 Dilaudid Injection - IVPB 05/02/17 00:37 1 mg ONCE ONE Administration <Isrrael Phan - Last Filed: 05/02/17 01:58> - LABORATORY CBC & Chemistry Diagram: 05/01/17 23:00 05/01/17 23:00 - ADDITIONAL ORDERS Additional order review: Laboratory Results 05/01/17 23:00 Sodium 142 Potassium 3.7 Chloride 102 Carbon Dioxide 32 Anion Gap 8 BUN 9 Creatinine 0.7 Creat Clearance w eGFR > 60 Random Glucose 92 Calcium 9.2 Total Bilirubin 0.2 AST 36 ALT 60 Alkaline Phosphatase 86 Total Protein 8.4 H Albumin 4.5 Lipase 101 05/01/17 23:00 Influenza Types A,B Antigen (OCTAVIANO) - Final Nasopharyngeal Aspirate - Final 05/01/17 23:00 RBC 4.20 MCV 90.8 MCHC 32.7 RDW 13.5 MPV 7.6 Neutrophils % 44.1 Lymphocytes % 49.8 H Monocytes % 3.7 L Eosinophils % 1.5 Basophils % 0.9 - RADIOLOGY Radiology Studies Ordered: Category Date Time Status ABDOMEN & PELVIS CT W/O CONTR [CT] Stat CT Scan 05/02/17 03:03 Taken - Medications Given in the ED: ED Medications Discontinued Medications Generic Name Dose Route Start Last Admin Trade Name Freq PRN Reason Stop Dose Admin Diphenhydramine HCl 25 mg 05/02/17 01:22 05/02/17 01:36 Benadryl Injection - IVPB 05/02/17 01:23 25 mg ONCE ONE Administration Hydromorphone HCl 1 mg 05/01/17 22:20 05/01/17 23:09 Dilaudid Injection - IVPUSH 05/01/17 22:21 1 mg ONCE ONE Administration Hydromorphone HCl 1 mg 05/02/17 00:36 05/02/17 01:32 Dilaudid Injection - IVPB 05/02/17 00:37 1 mg ONCE ONE Administration <Ila Andrade - Last Filed: 05/02/17 04:10> Medical Decision Making - Medical Decision Making 05/02/17 01:58 CBC, BMP 05/01/17 23:00 05/01/17 23:00 CMP Sodium 142 mmol/L (136-145) 05/01/17 23:00 Potassium 3.7 mmol/L (3.5-5.1) 05/01/17 23:00 Chloride 102 mmol/L (98-107) 05/01/17 23:00 Carbon Dioxide 32 mmol/L (21-32) 05/01/17 23:00 Anion Gap 8 (8-16) 05/01/17 23:00 BUN 9 mg/dL (7-18) 05/01/17 23:00 Creatinine 0.7 mg/dL (0.55-1.02) 05/01/17 23:00 Creat Clearance w eGFR > 60 (>60) 05/01/17 23:00 Random Glucose 92 mg/dL (74-106) 05/01/17 23:00 Calcium 9.2 mg/dL (8.5-10.1) 05/01/17 23:00 Total Bilirubin 0.2 mg/dL (0.2-1.0) 05/01/17 23:00 AST 36 U/L (15-37) 05/01/17 23:00 ALT 60 U/L (12-78) 05/01/17 23:00 Alkaline Phosphatase 86 U/L (45-117) 05/01/17 23:00 Total Protein 8.4 g/dl (6.4-8.2) H 05/01/17 23:00 Albumin 4.5 g/dl (3.4-5.0) 05/01/17 23:00 Lipase 101 U/L (73-393) 05/01/17 23:00 CT abdomen and pelvis pending, and UA pending. Dispo per CT and UA. Case signed out to Dr. Andrade for further management. <Isrrael Phan - Last Filed: 05/02/17 01:58> - Medical Decision Making 05/02/17 04:08 Patient Name: ASHLEY ESTEVEZ THIS IS A PRELIMINARY REPORT FROM [facility] DATE OF SERVICE: 2017-05-02 03:10:00 IMAGES: 410 EXAM: CT ABDOMEN AND PELVIS without contrast HISTORY: Diffuse abdominal pain COMPARISON: None. FINDINGS: Lingula and left lower lobe linear scarring or atelectasis is noted in The visualized cardiac chambers are normal size and configuration. Status post cholecystectomy without biliary duct dilation. Normal unenhanced liver, pancreas, spleen, adrenal glands and kidneys. The stomach and abdominal small and large bowel are normal. There is no aortic aneurysm. There is no significant retroperitoneal lymphadenopathy. The pelvic small and large bowel are normal. The appendix is normal. Status post hysterectomy. Urinary bladder is unremarkable. There is no pelvic free fluid. No discrete pelvic lymphadenopathy <Ila Andrade - Last Filed: 05/02/17 04:10> *DC/Admit/Observation/Transfer <Isrrael Phan - Last Filed: 05/02/17 01:58> <Ila Andrade - Last Filed: 05/02/17 04:10> Diagnosis at time of Disposition: Constipation, Gas pain - Referrals Referrals: Daphney Saenz [Primary Care Provider] - - Patient Instructions - Post Discharge Activity
[2017-05-02] MEDS ORDERED: POLYETHYLENE GLYCOL 3350 119 GM BTL PO ONE (04:09)
== END 2017-05-02 04:30 | disposition home or self-care (01) ==
LOC: JER 21:43
PROC: 3E033NZ Introduction of Analgesics, Hypnotics, Sedatives into Peripheral Vein, Percutaneous Approach (ICD-10-PCS; principal; 2017-05-01)
PROC: 3E033NZ Introduction of Analgesics, Hypnotics, Sedatives into Peripheral Vein, Percutaneous Approach (ICD-10-PCS; 2017-05-01)
PROC: 3E033GC Introduction of Other Therapeutic Substance into Peripheral Vein, Percutaneous Approach (ICD-10-PCS; 2017-05-01)
DX: K59.00 Constipation, unspecified (principal); I10 Essential (primary) hypertension; E78.00 Pure hypercholesterolemia, unspecified; K21.9 Gastro-esophageal reflux disease without esophagitis; F31.9 Bipolar disorder, unspecified
CPT/HCPCS: 36415; 74176-TC; 80053; 83690; 85025; 87804; 99282-25

== ENCOUNTER 2018-06-16 13:50 | Emergency (ER) | payer OTHER ==
[2018-06-16 14:06] VITALS: BP 138/72; PULSE 71; TEMP 97.8; BMI 29.2
--- NOTE | 2018-06-16 14:09 | PDOC ---
Rapid Medical Evaluation Chief Complaint: Chest Pain Medical Evaluation: Allergies Allergy/AdvReac Type Severity Reaction Status Date / Time aspirin Allergy Hives Verified 06/16/18 14:03 cyclobenzaprine HCl Allergy Hives Verified 06/16/18 14:03 [From Flexeril] erythromycin base Allergy Hives Verified 06/16/18 14:03 [Erythromycin Base] iodine [Iodine] Allergy Hives Verified 06/16/18 14:03 ketorolac tromethamine Allergy Hives Verified 06/16/18 14:03 [From Toradol] Penicillins Allergy Hives Verified 06/16/18 14:03 propoxyphene napsylate Allergy Hives Verified 06/16/18 14:03 [From Darvocet-N 100] theophylline anhydrous Allergy Hives Verified 06/16/18 14:03 [From Seth-Dur] doxycycline AdvReac Itching Verified 06/16/18 14:03 lactose [Lactose] AdvReac Verified 06/16/18 14:03 SEAFOOD Allergy Hives Uncoded 06/16/18 14:03 06/16/18 14:04 I have performed a brief in-person evaluation of this patient. The patient presents with a chief complaint of: chest pain, was told to come to ER for EKG last week. + hx of costrochondritis + pain management for chronic back pain Pertinent physical exam findings: well, NAD, lungs clear I have ordered the following: EKG The patient will proceed to the ED for further evaluation. Discharge Disposition - Diagnosis Chest pain Qualifiers: Chest pain type: chest pain on breathing Qualified Code(s): R07.1 - Chest pain on breathing; R07.81 - Pleurodynia - Referrals - Patient Instructions - Post Discharge Activity
--- NOTE | 2018-06-16 14:41 | PDOC ---
History of Present Illness - General Chief Complaint: Chest Pain Stated Complaint: CHEST PAIN Time Seen by Provider: 06/16/18 14:37 - History of Present Illness Initial Comments: 06/16/18 14:38 57 yo F with h/o chronic opioid dependent back pain, degernaritv disc dz., anxiety, bipolar disorder, chronic pain disorder, who p/w chest pain. Patient denies WARD, vision change, palpitations, cough, wheezing, orthopena, PND , leg swelling/pain, N/V, F,C, CP, SOB, urinary complaints, hematuria, BPR, abdominal pain, diarrhea, constipation, lightheadedness, weakness, sensory changes. PMHx: as noted above ROS: as noted SHx: Recreational marijuanna use Allergies: NKDA Past History - Past Medical History Allergies/Adverse Reactions: Allergies Allergy/AdvReac Type Severity Reaction Status Date / Time aspirin Allergy Hives Verified 06/16/18 14:03 cyclobenzaprine HCl Allergy Hives Verified 06/16/18 14:03 [From Flexeril] erythromycin base Allergy Hives Verified 06/16/18 14:03 [Erythromycin Base] iodine [Iodine] Allergy Hives Verified 06/16/18 14:03 ketorolac tromethamine Allergy Hives Verified 06/16/18 14:03 [From Toradol] Penicillins Allergy Hives Verified 06/16/18 14:03 propoxyphene napsylate Allergy Hives Verified 06/16/18 14:03 [From Darvocet-N 100] theophylline anhydrous Allergy Hives Verified 06/16/18 14:03 [From Seth-Dur] doxycycline AdvReac Itching Verified 06/16/18 14:03 lactose [Lactose] AdvReac Verified 06/16/18 14:03 SEAFOOD Allergy Hives Uncoded 06/16/18 14:03 Home Medications: Ambulatory Orders Carbamazepine [Tegretol -] 100 mg PO DAILY 05/02/17 Sertraline HCl [Zoloft] 100 mg PO DAILY 05/02/17 traZODone HCL [Desyrel -] 150 mg PO HS 05/02/17 Clonazepam [Klonopin] 1 mg PO DAILY PRN 05/24/17 Docusate Sodium [Colace -] 100 mg PO TID 05/24/17 Fluticasone/Salmeterol [Advair 250-50 Diskus] 1 each IH DAILY 05/24/17 Fluticasone Prop 0.05% Nasal [Flonase -] 1 spray NS DAILY #1 bot 08/17/17 Atorvastatin Calcium [Lipitor] 20 mg PO DAILY #30 tablet 10/15/17 Amlodipine Besylate [Norvasc -] 5 mg PO DAILY 01/10/18 Olmesartan/Amlodipin/Hcthiazid [Toprrrd-Opvjym-Eama 40-10-12.5] 1 each PO DAILY 01/10/18 Diclofenac Sodium 2 gm TP TID PRN #3 tube 02/11/18 Gabapentin 300 mg PO TID #90 capsule 03/10/18 Omeprazole Magnesium [Prilosec Otc] 20 mg PO DAILY #30 tablet. 03/10/18 Baclofen 10 mg PO TID PRN #90 tablet 05/10/18 Oxycodone HCl/Acetaminophen [Percocet 10-325 mg Tablet] 1 each PO TID PRN #80 tablet MDD 3 06/09/18 Anemia: No Asthma: Yes Cancer: No Cardiac Disorders: No CVA: No COPD: No CHF: No Dementia: No Diabetes: No GI Disorders: Yes (gerd) Disorders: No HTN: Yes (on meds) Hypercholesterolemia: Yes Liver Disease: No Psychiatric Problems: Yes (bipolar) Seizures: No Thyroid Disease: No - Surgical History Abdominal Surgery: Yes Appendectomy: No Cardiac Surgery: No Cholecystectomy: Yes (1999) Lung Surgery: No Neurologic Surgery: Yes (cervical discectomy and decompression 2012) Orthopedic Surgery: Yes (C-Spine) - Immunization History Immunization Up to Date: Yes - Suicide/Smoking/Psychosocial Hx Smoking Status: No Smoking History: Current every day smoker Years of Tobacco Use: 10 Have you smoked in the past 12 months: Yes Number of Cigarettes Smoked Daily: 10 Cigars Per Day: 0 Information on smoking cessation initiated: No 'Breaking Loose' booklet given: 02/07/16 Hx Alcohol Use: No Drug/Substance Use Hx: Yes (no cocaine since 2007) Substance Use Type: Cocaine, Marijuana Hx Substance Use Treatment: Yes (2007 rehab) Review of Systems - Review of Systems Comments:: 06/16/18 14:40 GENERAL/CONSTITUTIONAL: No fever or chills. No weakness. HEAD, EYES, EARS, NOSE AND THROAT: No change in vision. No ear pain or discharge. No sore throat. CARDIOVASCULAR: No chest pain or shortness of breath RESPIRATORY: No cough, wheezing, or hemoptysis. GASTROINTESTINAL: No nausea, vomiting, diarrhea or constipation. GENITOURINARY: No dysuria, frequency, or change in urination. MUSCULOSKELETAL: No joint or muscle swelling or pain. No neck or back pain. SKIN: No rash NEUROLOGIC: No headache, vertigo, loss of consciousness, or change in strength/ sensation. ENDOCRINE: No increased thirst. No abnormal weight change HEMATOLOGIC/LYMPHATIC: No anemia, easy bleeding, or history of blood clots. ALLERGIC/IMMUNOLOGIC: No hives or skin allergy. *Physical Exam - Vital Signs Last Vital Signs Temp Pulse Resp BP Pulse Ox 97.8 F 71 18 138/72 97 06/16/18 14:03 06/16/18 14:03 06/16/18 14:03 06/16/18 14:03 06/16/18 14:03 - Physical Exam Comments: 06/16/18 14:40 GENERAL: Awake, alert, and fully oriented, in no acute distress HEAD: No signs of trauma, normocephalic, atraumatic EYES: PERRLA, EOMI, sclera anicteric, conjunctiva clear ENT: Auricles normal inspection, hearing grossly normal, nares patent, oropharynx clear without exudates. Moist mucosa NECK: Normal ROM, supple, no lymphadenopathy, JVD, or masses LUNGS: No distress, speaks full sentences, clear to auscultation bilaterally HEART: Regular rate and rhythm, normal S1 and S2, no murmurs, rubs or gallops, peripheral pulses normal and equal bilaterally. ABDOMEN: Soft, nontender, normoactive bowel sounds. No guarding, no rebound. No masses EXTREMITIES : Normal inspection, Normal range of motion, no edema. No clubbing or cyanosis. NEUROLOGICAL: Cranial nerves II through XII grossly intact. Normal speech, normal gait, no focal sensorimotor deficits SKIN: Warm, Dry, normal turgor, no rashes or lesions noted Moderate Sedation - Procedure Monitoring Vital Signs: Procedure Monitoring Vital Signs Temperature 97.8 F 06/16/18 14:03 Pulse Rate 71 06/16/18 14:03 Respiratory Rate 18 06/16/18 14:03 Blood Pressure 138/72 06/16/18 14:03 O2 Sat by Pulse Oximetry (%) 97 06/16/18 14:03 *DC/Admit/Observation/Transfer Diagnosis at time of Disposition: Chest pain Qualifiers: Chest pain type: chest pain on breathing Qualified Code(s): R07.1 - Chest pain on breathing - Referrals Referrals: Reynold Goncalves [Primary Care Provider] - Marlon Brenner MD [Staff Physician] - - Patient Instructions Printed Discharge Instructions: DI for Atypical Chest Pain Additional Instructions: Please return to the emergency department with any new or worsening symptoms or concerns. Please follow up with your primary care physician and cardiology within 72 hours. - Post Discharge Activity - Attestations Physician Attestion: 06/16/18 14:41 I attest to the information provided in this note.
[2018-06-16] MEDS ORDERED: diazePAM 5 MG TABLET PO ONE (15:45)
[2018-06-16] MEDS ORDERED: diazePAM 5 MG TABLET ONE (15:48)
[2018-06-16] MEDS ORDERED: morphine CARPU-JECT 2 MG/1 ML DISP.SYRIN IM ONE (15:50)
[2018-06-16] MEDS ORDERED: MORPHINE SULFATE 2 MG/ML VIAL ONE (15:53)
[2018-06-16 16:16] LABS: BASO % 0.9 % (0-2.0); EOS % 1.5 % (0-4.5); HEMATOCRIT 36.9 % (32.4-45.2); HEMOGLOBIN 12.6 GM/dL (10.7-15.3); MCHC 34.1 g/dl (32.0-36.0); MEAN CELL VOLUME 91.2 fl (80-96); MEAN PLT VOLUME 7.9 fl (7.5-11.1); MONO % 3.9 % (3.8-10.2); NEUT % 46.7 % (42.8-82.8); PLATELET COUNT 222 K/MM3 (134-434); RBC 4.05 M/mm3 (3.60-5.2); RDW 13.4 % (11.6-15.6); WHITE BLOOD COUNT 7.7 K/mm3 (4.0-10.0)
[2018-06-16 16:44] LABS: ALBUMIN 4.4 g/dl (3.4-5.0); ALK PHOS 99 U/L (45-117); ANION GAP 7 MMOL/L (8-16); BILIRUBIN,TOTAL 0.2 mg/dL (0.2-1); BLOOD UREA NITROGEN 10 mg/dL (7-18); CALCIUM 9.1 mg/dL (8.5-10.1); CHLORIDE 104 mmol/L (98-107); CO2 30 mmol/L (21-32); CREATININE 0.6 mg/dL (0.55-1.3); GLUCOSE,RANDOM 105 mg/dL (74-106); POTASSIUM 3.4 mmol/L (3.5-5.1); SGOT/AST 31 U/L (15-37); SGPT/ALT 42 U/L (13-61); SODIUM 141 mmol/L (136-145); TOT PROT 8.2 g/dl (6.4-8.2)
--- NOTE | 2018-06-16 16:58 | PDOC ---
History of Present Illness - History of Present Illness Initial Comments: The patient is a 57 year old female, with a significant PMH of costochondritis, chronic back pain (opioid dependent), degenerative disc disease, anxiety, bipolar disorder, HTN, hypercholesterolemia, asthma, GERD, chronic pain disorder, who presents to the emergency department today complaining of chest pain for 2 days. Patient notes she has been experiencing intermittent, non- radicular chest pain for 1 week but it has progressively worsened and become more constant over the past two days. She reports associated SOB, but notes she is asthmatic at baseline. Patient is unsure if her current chest pain is related to her costochondritis episodes in the past. She reports taking carbamazepine and percocet for her symptoms without any relief. 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 The patient denies headache and dizziness. Denies fever, chills, nausea, vomit, diarrhea and constipation. Denies dysuria, frequency, urgency and hematuria. Allergies: Aspirin, cyclobenzaprine, erythromycin base, iodine, ketorolac tromethamine, penicillins, propoxyphene napsylate, theophylline anhydrous, doxycycline, lactose, and seafood Past surgical history: Cholecystectomy, cervical cystectomy and decompression Social history: Current marijuana user and previous cocaine user PCP: Dr. Reynold Goncalves 06/16/18 16:58 <Hoda Garcia - Last Filed: 06/16/18 17:32> <Alysia Sanchez - Last Filed: 06/18/18 16:50> - General Chief Complaint: Chest Pain Stated Complaint: CHEST PAIN Time Seen by Provider: 06/16/18 14:37 Past History <Hoda Garcia - Last Filed: 06/16/18 17:32> - Past Medical History Anemia: No Asthma: Yes Cancer: No Cardiac Disorders: No CVA: No COPD: No CHF: No Dementia: No Diabetes: No GI Disorders: Yes (gerd) Disorders: No HTN: Yes (on meds) Hypercholesterolemia: Yes Liver Disease: No Psychiatric Problems: Yes (bipolar) Seizures: No Thyroid Disease: No - Surgical History Abdominal Surgery: Yes Appendectomy: No Cardiac Surgery: No Cholecystectomy: Yes (1999) Lung Surgery: No Neurologic Surgery: Yes (cervical discectomy and decompression 2012) Orthopedic Surgery: Yes (C-Spine) - Immunization History Immunization Up to Date: Yes - Suicide/Smoking/Psychosocial Hx Smoking Status: No Smoking History: Current every day smoker Years of Tobacco Use: 10 Have you smoked in the past 12 months: Yes Number of Cigarettes Smoked Daily: 10 Cigars Per Day: 0 Information on smoking cessation initiated: No 'Breaking Loose' booklet given: 02/07/16 Hx Alcohol Use: No Drug/Substance Use Hx: Yes (no cocaine since 2007) Substance Use Type: Cocaine, Marijuana Hx Substance Use Treatment: Yes (2007 rehab) <Alysia Sanchez - Last Filed: 06/18/18 16:50> - Past Medical History Allergies/Adverse Reactions: Allergies Allergy/AdvReac Type Severity Reaction Status Date / Time aspirin Allergy Hives Verified 06/16/18 14:03 cyclobenzaprine HCl Allergy Hives Verified 06/16/18 14:03 [From Flexeril] erythromycin base Allergy Hives Verified 06/16/18 14:03 [Erythromycin Base] iodine [Iodine] Allergy Hives Verified 06/16/18 14:03 ketorolac tromethamine Allergy Hives Verified 06/16/18 14:03 [From Toradol] Penicillins Allergy Hives Verified 06/16/18 14:03 propoxyphene napsylate Allergy Hives Verified 06/16/18 14:03 [From Darvocet-N 100] theophylline anhydrous Allergy Hives Verified 06/16/18 14:03 [From Seth-Dur] doxycycline AdvReac Itching Verified 06/16/18 14:03 lactose [Lactose] AdvReac Verified 06/16/18 14:03 SEAFOOD Allergy Hives Uncoded 06/16/18 14:03 Home Medications: Ambulatory Orders Carbamazepine [Tegretol -] 100 mg PO DAILY 05/02/17 Sertraline HCl [Zoloft] 100 mg PO DAILY 05/02/17 traZODone HCL [Desyrel -] 150 mg PO HS 05/02/17 Clonazepam [Klonopin] 1 mg PO DAILY PRN 05/24/17 Docusate Sodium [Colace -] 100 mg PO TID 05/24/17 Fluticasone/Salmeterol [Advair 250-50 Diskus] 1 each IH DAILY 05/24/17 Fluticasone Prop 0.05% Nasal [Flonase -] 1 spray NS DAILY #1 bot 08/17/17 Atorvastatin Calcium [Lipitor] 20 mg PO DAILY #30 tablet 10/15/17 Amlodipine Besylate [Norvasc -] 5 mg PO DAILY 01/10/18 Olmesartan/Amlodipin/Hcthiazid [Wfyaxfq-Rkjcig-Gptp 40-10-12.5] 1 each PO DAILY 01/10/18 Diclofenac Sodium 2 gm TP TID PRN #3 tube 02/11/18 Gabapentin 300 mg PO TID #90 capsule 03/10/18 Omeprazole Magnesium [Prilosec Otc] 20 mg PO DAILY #30 tablet. 03/10/18 Baclofen 10 mg PO TID PRN #90 tablet 05/10/18 Oxycodone HCl/Acetaminophen [Percocet 10-325 mg Tablet] 1 each PO TID PRN #80 tablet MDD 3 06/09/18 Review of Systems - Review of Systems Comments:: GENERAL/CONSTITUTIONAL: No fever or chills. No weakness. HEAD, EYES, EARS, NOSE AND THROAT: No change in vision. No ear pain or discharge. No sore throat. CARDIOVASCULAR: +Chest pain. +SOB (possibly secondary to asthma). RESPIRATORY: No cough, wheezing, or hemoptysis. GASTROINTESTINAL: No nausea, vomiting, diarrhea or constipation. GENITOURINARY: No dysuria, frequency, or change in urination. MUSCULOSKELETAL: No joint or muscle swelling or pain. No neck or back pain. SKIN: No rash NEUROLOGIC: No headache, vertigo, loss of consciousness, or change in strength/ sensation. ENDOCRINE: No increased thirst. No abnormal weight change. HEMATOLOGIC/LYMPHATIC: No anemia, easy bleeding, or history of blood clots. ALLERGIC/IMMUNOLOGIC: No hives or skin allergy. 06/16/18 16:58 <Hoda Garcia - Last Filed: 06/16/18 17:32> *Physical Exam - Vital Signs Last Vital Signs Temp Pulse Resp BP Pulse Ox 97.8 F 71 18 138/72 97 06/16/18 14:03 06/16/18 14:03 06/16/18 14:03 06/16/18 14:03 06/16/18 14:03 - Physical Exam Comments: GENERAL: Awake, alert, and fully oriented, in no acute distress HEAD: No signs of trauma EYES: PERRLA, EOMI, sclera anicteric, conjunctiva clear ENT: Auricles normal inspection, hearing grossly normal, nares patent, oropharynx clear without exudates. Moist mucosa NECK: Normal ROM, supple, no lymphadenopathy, JVD, or masses LUNGS: Breath sounds equal, clear to auscultation bilaterally. No wheezes, and no crackles HEART: Regular rate and rhythm, normal S1 and S2, no murmurs, rubs or gallops ABDOMEN: Soft, nontender, normoactive bowel sounds. No guarding, no rebound. No masses EXTREMITIES: Normal range of motion, no edema. No clubbing or cyanosis. No cords, erythema, or tenderness NEUROLOGICAL: Cranial nerves II through XII grossly intact. Normal speech, normal gait SKIN: Warm, Dry, normal turgor, no rashes or lesions noted. 06/16/18 16:58 <Hoda Garcia - Last Filed: 06/16/18 17:32> - Vital Signs Last Vital Signs Temp Pulse Resp BP Pulse Ox 97.8 F 71 18 138/72 97 06/16/18 14:03 06/16/18 14:03 06/16/18 14:03 06/16/18 14:03 06/16/18 14:03 <Alysia Sanchez - Last Filed: 06/18/18 16:50> Moderate Sedation - Procedure Monitoring Vital Signs: Procedure Monitoring Vital Signs Temperature 97.8 F 06/16/18 14:03 Pulse Rate 71 06/16/18 14:03 Respiratory Rate 18 06/16/18 14:03 Blood Pressure 138/72 06/16/18 14:03 O2 Sat by Pulse Oximetry (%) 97 06/16/18 14:03 <Hoda Garcia - Last Filed: 06/16/18 17:32> - Procedure Monitoring Vital Signs: Procedure Monitoring Vital Signs Temperature 97.8 F 06/16/18 14:03 Pulse Rate 71 06/16/18 14:03 Respiratory Rate 18 06/16/18 14:03 Blood Pressure 138/72 06/16/18 14:03 O2 Sat by Pulse Oximetry (%) 97 06/16/18 14:03 <Alysia Sanchez - Last Filed: 06/18/18 16:50> Heart Score/ECG Review - ECG Intrepretation Comment:: Poor data quality, interpretation may be adversely affected. Sinus rhythm with frequent premature ventricular complexes. Otherwise normal ECG 06/16/18 17:32 <Hoda Garcia - Last Filed: 06/16/18 17:32> ED Treatment Course - LABORATORY CBC & Chemistry Diagram: 06/16/18 15:54 06/16/18 15:54 - ADDITIONAL ORDERS Additional order review: Laboratory Results 06/16/18 15:54 Sodium 141 Potassium 3.4 L Chloride 104 Carbon Dioxide 30 Anion Gap 7 L BUN 10 Creatinine 0.6 Creat Clearance w eGFR > 60 Random Glucose 105 Calcium 9.1 Total Bilirubin 0.2 AST 31 ALT 42 Alkaline Phosphatase 99 Creatine Kinase 204 H Troponin I 0.04 Total Protein 8.2 Albumin 4.4 06/16/18 15:54 RBC 4.05 MCV 91.2 MCHC 34.1 RDW 13.4 MPV 7.9 Neutrophils % 46.7 Lymphocytes % 47.0 H Monocytes % 3.9 Eosinophils % 1.5 Basophils % 0.9 - RADIOLOGY Radiograph Interpretation: EXAM#: TYPE/EXAM: RESULT: [id number] RAD/CHEST PA LAT Chest: Chest pain Impression: No acute chest pathology. Focal density left lower lung field that was not present on 06/18/2016. Correlation and follow-up recommended. Reported By: Goran Banuelos MD 06/16/18 16:54 06/16/18 16:59 - Medications Given in the ED: ED Medications Discontinued Medications Generic Name Dose Route Start Last Admin Trade Name Freq PRN Reason Stop Dose Admin Diazepam 5 mg 06/16/18 15:45 06/16/18 15:55 Valium - PO 06/16/18 15:46 Not Given ONCE ONE Morphine Sulfate 2 mg 06/16/18 15:50 06/16/18 15:55 Morphine Injection - IM 06/16/18 15:51 2 mg ONCE ONE Administration <Hoda Garcia - Last Filed: 06/16/18 17:32> - LABORATORY CBC & Chemistry Diagram: 06/16/18 15:54 06/16/18 15:54 - ADDITIONAL ORDERS Additional order review: Laboratory Results 06/16/18 15:54 Sodium 141 Potassium 3.4 L Chloride 104 Carbon Dioxide 30 Anion Gap 7 L BUN 10 Creatinine 0.6 Creat Clearance w eGFR > 60 Random Glucose 105 Calcium 9.1 Total Bilirubin 0.2 AST 31 ALT 42 Alkaline Phosphatase 99 Creatine Kinase 204 H Troponin I 0.04 Total Protein 8.2 Albumin 4.4 06/16/18 15:54 RBC 4.05 MCV 91.2 MCHC 34.1 RDW 13.4 MPV 7.9 Neutrophils % 46.7 Lymphocytes % 47.0 H Monocytes % 3.9 Eosinophils % 1.5 Basophils % 0.9 - RADIOLOGY Radiology Studies Ordered: Category Date Time Status CHEST PA & LAT [RAD] Stat Radiology 06/16/18 15:44 Completed - Medications Given in the ED: ED Medications Discontinued Medications Generic Name Dose Route Start Last Admin Trade Name Freq PRN Reason Stop Dose Admin Diazepam 5 mg 06/16/18 15:45 06/16/18 15:55 Valium - PO 06/16/18 15:46 Not Given ONCE ONE Morphine Sulfate 2 mg 06/16/18 15:50 06/16/18 15:55 Morphine Injection - IM 06/16/18 15:51 2 mg ONCE ONE Administration <Alysia Sanchez - Last Filed: 06/18/18 16:50> Medical Decision Making - Medical Decision Making 06/18/18 16:49 pt presents to the ED complaining of pleuritic chest pain similar to previous episodes of costochonritis. Resolved in the ED after morphine IM. Jose now denies complaints and is asking to go home. WIll discharge with instructions to follow up with PMD. <Alysia Sanchez - Last Filed: 06/18/18 16:50> *DC/Admit/Observation/Transfer - Attestations Scribe Attestion: Documentation prepared by SHANTEL Hoskins, acting as medical laboratory scientist for Alysia Sanchez MD. 06/16/18 16:59 <Hoda Garcia - Last Filed: 06/16/18 17:32> <Alysia Sanchez - Last Filed: 06/18/18 16:50> Diagnosis at time of Disposition: Chest pain Qualifiers: Chest pain type: chest pain on breathing Qualified Code(s): R07.1 - Chest pain on breathing - Discharge Dispostion Disposition: HOME - Referrals Referrals: Marlon Brenner MD [Staff Physician] - Reynold Goncalves [Primary Care Provider] - - Patient Instructions Printed Discharge Instructions: DI for Atypical Chest Pain Additional Instructions: You came to the ED for chest pain. The blood tests that we did were normal. The EKG shows PVCs, which lead to the feeling of your heart "skipping a beat" but are not dangerous. We do not think your chest pain was coming from your heart, but you should see your doctor for follow up. Please return to the emergency department with any new or worsening symptoms or concerns. Please follow up with your primary care physician within 72 hours. - Post Discharge Activity
== END 2018-06-16 17:23 | disposition home or self-care (01) ==
LOC: JER 13:50
PROC: 3E023NZ Introduction of Analgesics, Hypnotics, Sedatives into Muscle, Percutaneous Approach (ICD-10-PCS; principal; 2018-06-16)
DX: R07.1 Chest pain on breathing (principal); M94.0 Chondrocostal junction syndrome [Tietze]; I10 Essential (primary) hypertension; E78.00 Pure hypercholesterolemia, unspecified; M54.5 Low back pain; G89.29 Other chronic pain; F41.0 Panic disorder [episodic paroxysmal anxiety]; F41.9 Anxiety disorder, unspecified; F31.9 Bipolar disorder, unspecified; J45.909 Unspecified asthma, uncomplicated; K21.9 Gastro-esophageal reflux disease without esophagitis
CPT/HCPCS: 36415; 71046-TC-FY; 80053; 82550; 82553; 84484; 85025; 99281-25

== ENCOUNTER 2019-02-02 21:44 | Emergency (ER) | payer OTHER ==
[2019-02-02 22:08] VITALS: TEMP 98; BMI 27.8
--- NOTE | 2019-02-02 23:12 | PDOC ---
History of Present Illness - General Chief Complaint: Pain Stated Complaint: CHEST PAIN Time Seen by Provider: 02/02/19 23:03 - History of Present Illness Initial Comments: 02/02/19 23:12 58 yo woman with pmh of chronic opiate dependent back, neck, knee pain complicated by anxiety/bipolar disorder, costochondritis, hypercholesterolemia , asthma, GERD, chronic pain disorder. She was in [facility] 01/15-01/20 due to severe HTN (meds have been changed) and constipation (now on relistor/linzess), who presents to the emergency department today complaining of right shoulder pain following IM shot at [place] which left a big bruise there. She also complains of chest pain and burning on urination. The patient denies headache and dizziness. Denies fever, chills, nausea, vomit, diarrhea and constipation. Allergies: Aspirin, cyclobenzaprine, erythromycin base, iodine, ketorolac tromethamine, penicillins, propoxyphene napsylate, theophylline anhydrous, doxycycline, lactose, and seafood Past surgical history: Cholecystectomy, cervical cystectomy and decompression Social history: Current marijuana user and previous cocaine user PCP: Dr. Reynold Goncalves Past History - Past Medical History Allergies/Adverse Reactions: Allergies Allergy/AdvReac Type Severity Reaction Status Date / Time aspirin Allergy Hives Verified 02/02/19 22:07 cyclobenzaprine HCl Allergy Hives Verified 02/02/19 22:07 [From Flexeril] erythromycin base Allergy Hives Verified 02/02/19 22:07 [Erythromycin Base] iodine [Iodine] Allergy Hives Verified 02/02/19 22:07 ketorolac tromethamine Allergy Hives Verified 02/02/19 22:07 [From Toradol] Penicillins Allergy Hives Verified 02/02/19 22:07 propoxyphene napsylate Allergy Hives Verified 02/02/19 22:07 [From Darvocet-N 100] theophylline anhydrous Allergy Hives Verified 02/02/19 22:07 [From Seth-Dur] doxycycline AdvReac Itching Verified 02/02/19 22:07 lactose [Lactose] AdvReac Verified 02/02/19 22:07 SEAFOOD Allergy Hives Uncoded 06/16/18 14:03 Home Medications: Ambulatory Orders Carbamazepine [Tegretol -] 100 mg PO DAILY 05/02/17 Sertraline HCl [Zoloft] 100 mg PO DAILY 05/02/17 Clonazepam [Klonopin] 1 mg PO DAILY PRN 05/24/17 Docusate Sodium [Colace -] 100 mg PO TID 05/24/17 Fluticasone/Salmeterol [Advair 250-50 Diskus] 1 each IH DAILY 05/24/17 Fluticasone Prop 0.05% Nasal [Flonase -] 1 spray NS DAILY #1 bot 08/17/17 Amlodipine Besylate [Norvasc -] 5 mg PO DAILY 01/10/18 Gabapentin 300 mg PO TID #90 capsule 03/10/18 Diclofenac Sodium 2 gm TP TID PRN #3 tube 11/14/18 Ergocalciferol (Vitamin D2) [Vitamin D2] 50,000 unit PO Q7D #4 capsule 11/14/18 Baclofen 10 mg PO TID PRN #90 tablet 12/15/18 Amlodipine Besylate [Norvasc -] 10 mg PO DAILY 01/25/19 Aripiprazole [Abilify -] 5 mg PO DAILY 01/25/19 Atorvastatin Calcium [Lipitor] 40 mg PO DAILY 01/25/19 Clonidine HCl 0.1 mg PO BID 01/25/19 Hydralazine HCl 50 mg PO TID 01/25/19 Lansoprazole [Prevacid -] 30 mg PO DAILY 01/25/19 Linaclotide [Linzess] 145 mcg PO DAILY 01/25/19 Lisinopril [Prinivil] 20 mg PO DAILY 01/25/19 Methylnaltrexone [place] [Relistor] 150 mg PO DAILY 01/25/19 Oxycodone HCl/Acetaminophen [Percocet 10-325 mg Tablet] 1 each PO TID PRN #90 tablet MDD 3 01/25/19 Pantoprazole Sodium [Protonix -] 40 mg PO DAILY 01/25/19 Anemia: No Asthma: Yes Cancer: No Cardiac Disorders: No CVA: No COPD: No CHF: No Dementia: No Diabetes: No GI Disorders: Yes (gerd) Disorders: No HTN: Yes (on meds) Hypercholesterolemia: Yes Liver Disease: No Psychiatric Problems: Yes (bipolar) Seizures: No Thyroid Disease: No - Surgical History Abdominal Surgery: Yes Appendectomy: No Cardiac Surgery: No Cholecystectomy: Yes (1999) Lung Surgery: No Neurologic Surgery: Yes (cervical discectomy and decompression 2012) Orthopedic Surgery: Yes (C-Spine) - Immunization History Immunization Up to Date: Yes - Psycho Social/Smoking Cessation Hx Smoking Status: No Smoking History: Never smoked Years of Tobacco Use: 10 Have you smoked in the past 12 months: Yes Number of Cigarettes Smoked Daily: 10 Cigars Per Day: 0 'Breaking Loose' booklet given: 02/07/16 Hx Alcohol Use: No Drug/Substance Use Hx: Yes (no cocaine since 2007) Substance Use Type: Cocaine, Marijuana Hx Substance Use Treatment: Yes (2007 rehab) Review of Systems - Review of Systems Able to Perform ROS?: Yes Is the patient limited [place] Citizen proficient: No Constitutional: No: Symptoms Reported HEENTM: No: Symptoms Reported Respiratory: No: Symptoms reported Cardiac (ROS): Yes: See HPI ABD/GI: No: Symptoms Reported : Yes: See HPI Musculoskeletal: Yes: Symptoms Reported, See HPI Integumentary: No: Symptoms Reported Neurological: No: Symptoms reported All Other Systems: Reviewed and Negative *Physical Exam - Vital Signs Last Vital Signs Temp Pulse Resp BP Pulse Ox 98 F 70 18 156/89 99 02/02/19 22:05 02/02/19 22:05 02/02/19 22:05 02/02/19 22:05 02/02/19 22:05 - Physical Exam General Appearance: Yes: Nourished, Appropriately Dressed. No: Apparent Distress HEENT: positive: EOMI, MACIEJ, Normal ENT Inspection Respiratory/Chest: positive: Lungs Clear, Normal Breath Sounds. negative: Chest Tender, Respiratory Distress Cardiovascular: positive: Regular Rhythm, Regular Rate, S1, S2 Gastrointestinal/Abdominal: positive: Normal Bowel Sounds, Flat, Soft. negative : Tender Musculoskeletal: positive: Normal Inspection. negative: CVA Tenderness Extremity: positive: Normal Capillary Refill, Normal Inspection, Normal Range of Motion Integumentary: positive: Normal Color, Dry, Warm Neurologic: positive: Fully Oriented, Alert, Normal Mood/Affect, Normal Response , Motor Strength 5/5 Medical Decision Making - Medical Decision Making 02/02/19 23:40 58f with pmh of chronic pain coming in for right shoulder pain, chest pain and dysuria. Will check ekg, labs and UA. Lidoderm patch for pain. and reassess. 02/02/19 23:51 Patient signed out to Dr. Ross Discharge - Discharge Information Problems reviewed: Yes Clinical Impression/Diagnosis: Chest pain, Chronic use of opiate drugs therapeutic purposes, Cervical post- laminectomy syndrome, Dysuria Condition: Improved Disposition: HOME - Admission No - Follow up/Referral Referrals: José Miguel Hammer DO [Staff Physician] - Seymour Banegas MD [Staff Physician] - Jv Rodriguez DO [Staff Physician] - - Patient Discharge Instructions Patient Printed Discharge Instructions: Managing Chronic Low Back Pain, DI for Chronic Pain -- Adult, Capsaicin Patch May Improve Painful Diabetic Peripheral Neuropathy Symptoms Additional Instructions: Follow up with orthopedic surgery and neurology providers listed here. Come back to the emergency department for any new, worsening or concerning symptom. - Post Discharge Activity
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
[2019-02-02] MEDS ORDERED: KETAMINE HCL 500 MG/10 ML VIAL IV ONE (23:28)
[2019-02-02] MEDS ORDERED: LIDOCAINE 5% TOPICAL PATCH TP ONE (23:31)
[2019-02-02] MEDS ORDERED: LIDOCAINE 5% TOPICAL PATCH ONE (23:34)
--- NOTE | 2019-02-02 23:51 | PDOC ---
*Physical Exam - Vital Signs Last Vital Signs Temp Pulse Resp BP Pulse Ox 98 F 70 18 156/89 99 02/02/19 22:05 02/02/19 22:05 02/02/19 22:05 02/02/19 22:05 02/02/19 22:05 ED Treatment Course - LABORATORY CBC & Chemistry Diagram: 02/02/19 23:52 02/02/19 23:52 - Medications Given in the ED: ED Medications Discontinued Medications Generic Name Dose Route Start Last Admin Trade Name Jayson PRN Reason Stop Dose Admin Ketamine HCl 22 mg 02/02/19 23:28 02/02/19 23:32 Ketalar - IV 02/02/19 23:29 Not Given ONCE ONE Medical Decision Making - Medical Decision Making 02/02/19 23:[address] Nguyen. Patient is a 58 yo female w/ chornic pain complicated by anxiety and bipolar disorder, costochondritis, HTN, HLD, asthma, GERD who presents for evaluation of R shoulder pain s/p IM shot. Patient also complaining of chest pain and dysuria. Patient currently pending UA/UCx and medication at this time. 02/03/19 00:43 Patient reporting relief from pain and requesting discharge. Does not wish to stay for results at this time. Will follow-up urine to ensure no UTI and send to patient's pharmacy if present. Patient verbalized understanding and will check with pharmacy in AM. Discharging to home. 02/03/19 02:23 UA negative. No further workup required. Patient has left unit. Discharge - Discharge Information Problems reviewed: Yes Clinical Impression/Diagnosis: Chronic use of opiate drugs therapeutic purposes, Cervical post-laminectomy syndrome Chest pain Qualifiers: Chest pain type: unspecified Qualified Code(s): R07.9 - Chest pain, unspecified Condition: Improved Disposition: HOME - Follow up/Referral Referrals: Seymour Banegas MD [Staff Physician] - José Miguel Hammer DO [Staff Physician] - Jv Rodriguez DO [Staff Physician] - - Patient Discharge Instructions Patient Printed Discharge Instructions: Managing Chronic Low Back Pain, DI for Chronic Pain -- Adult, Capsaicin Patch May Improve Painful Diabetic Peripheral Neuropathy Symptoms Additional Instructions: Follow up with orthopedic surgery and neurology providers listed here. Come back to the emergency department for any new, worsening or concerning symptom. - Post Discharge Activity
[2019-02-03] LABS: BASO % 0.6 % (0-2.0); EOS % 1.7 % (0-4.5); HEMATOCRIT 33.5 % (32.4-45.2); HEMOGLOBIN 10.9 GM/dL (10.7-15.3); LYMPH % 46.3 % (8-40); MCH 29.4 pg (25.7-33.7); MCHC 32.4 g/dl (32.0-36.0); MEAN CELL VOLUME 90.9 fl (80-96); MEAN PLT VOLUME 7.2 fl (7.5-11.1); MONO % 4.2 % (3.8-10.2); NEUT % 47.2 % (42.8-82.8); PLATELET COUNT 226 K/MM3 (134-434); RBC 3.69 M/mm3 (3.60-5.2); RDW 13.4 % (11.6-15.6); WHITE BLOOD COUNT 5.7 K/mm3 (4.0-10.0)
[2019-02-03 00:46] LABS: ALBUMIN 4.1 g/dl (3.4-5.0); BILIRUBIN,TOTAL 0.2 mg/dL (0.2-1); CALCIUM 9.1 mg/dL (8.5-10.1); CREATININE 0.5 mg/dL (0.55-1.3); POTASSIUM 3.9 mmol/L (3.5-5.1); TOT PROT 7.3 g/dl (6.4-8.2)
[2019-02-03 01:02] VITALS: BP 145/85; PULSE 73
[2019-02-03 01:52] LABS: URINE APPEARANCE CLEAR; URINE BILIRUBIN NEGATIVE (NEGATIVE); URINE COLOR YELLOW; URINE GLUCOSE (UA) NEGATIVE (NEGATIVE); URINE KETONE TRACE (NEGATIVE); URINE LEUK ESTERASE NEGATIVE (NEGATIVE); URINE NITRITE NEGATIVE (NEGATIVE); URINE PROTEIN NEGATIVE (NEGATIVE)
--- NOTE | 2019-02-03 13:28 | EKG ---
Test Reason : Blood Pressure : / mmHG Vent. Rate : 068 BPM Atrial Rate : 068 BPM P-R Int : 164 ms QRS Dur : 088 ms QT Int : 440 ms P-R-T Axes : 052 -38 076 degrees QTc Int : 467 ms NORMAL SINUS RHYTHM LEFT AXIS DEVIATION SEPTAL INFARCT , AGE UNDETERMINED ABNORMAL ECG Confirmed by AMARILIS DUMONT MD ([id number]) on 02/03/2019 1:28:34 PM Referred By: Confirmed By:AMARILIS DUMONT MD
== END 2019-02-03 01:01 | disposition home or self-care (01) ==
LOC: JER 21:44
DX: M25.511 Pain in right shoulder (principal); M96.1 Postlaminectomy syndrome, not elsewhere classified; M94.0 Chondrocostal junction syndrome [Tietze]; I10 Essential (primary) hypertension; E78.00 Pure hypercholesterolemia, unspecified; K21.9 Gastro-esophageal reflux disease without esophagitis; F41.9 Anxiety disorder, unspecified; G89.29 Other chronic pain; Z79.899 Other long term (current) drug therapy; Z88.1 Allergy status to other antibiotic agents; Z88.0 Allergy status to penicillin; Z88.8 Allergy status to other drugs, medicaments and biological substances; Z91.013 Allergy to seafood; Z91.018 Allergy to other foods; Z88.6 Allergy status to analgesic agent
CPT/HCPCS: 36415; 71045-TC-FY; 80053; 81003; 84484; 85025; 87086; 93005; 93010; 99283-25

== ENCOUNTER 2020-06-04 00:42 | Emergency (ER) | payer OTHER ==
[2020-06-04 01:42] VITALS: BMI 33.3
[2020-06-04] MEDS ORDERED: ACETAMINOPHEN 500 MG TABLET (FP) PO ONE (02:33)
[2020-06-04] MEDS ORDERED: ACETAMINOPHEN 325 MG TABLET (FP) ONE (02:48)
[2020-06-04 03:02] VITALS: BP 151/70; PULSE 67; TEMP 98.1
[2020-06-04] MEDS ORDERED: oxyCODONE HCL 5 MG TABLET ONE (05:07)
[2020-06-04] MEDS ORDERED: oxyCODONE HCL 5 MG TABLET PO ONE (05:09)
== END 2020-06-04 05:44 | disposition home or self-care (01) ==
LOC: JER 00:42
DX: M79.602 Pain in left arm (principal); R91.1 Solitary pulmonary nodule; W19.XXXA Unspecified fall, initial encounter
CPT/HCPCS: 70450-TC; 71250-TC; 72125-TC; 72128-TC; 72131-TC; 73030-TC-LT-FY; 73090-TC-LT-FY; 73110-TC-LT-FY; 73130-TC-LT-FY; 93005; 93010; 99285-25

== ENCOUNTER 2020-06-10 15:27 | Emergency (ER) | payer OTHER ==
[2020-06-10 15:55] VITALS: BP 145/79; PULSE 66; TEMP 97.9; BMI 25.0
[2020-06-10 18:12] LABS: BASO % 0.5 % (0-2.0); EOS % 1.6 % (0-4.5); HEMOGLOBIN 12.5 GM/dL (10.7-15.3); LYMPH % 38.4 % (8-40); MCH 30.7 pg (25.7-33.7); MCHC 33.8 g/dl (32.0-36.0); MEAN CELL VOLUME 90.8 fl (80-96); MEAN PLT VOLUME 7.8 fl (7.5-11.1); NEUT % 55.5 % (42.8-82.8); PLATELET COUNT 245 K/MM3 (134-434); RBC 4.08 M/mm3 (3.60-5.2); RDW 13.8 % (11.6-15.6); WHITE BLOOD COUNT 6.7 K/mm3 (4.0-10.0)
[2020-06-10 18:35] LABS: POTASSIUM 3.5 mmol/L (3.5-5.1)
[2020-06-10 18:38] LABS: CALCIUM 9.2 mg/dL (8.5-10.1)
[2020-06-10 18:39] LABS: BLOOD UREA NITROGEN 10.3 mg/dL (7-18)
[2020-06-10 18:40] LABS: ALBUMIN 4.4 g/dl (3.4-5.0)
[2020-06-10 18:42] LABS: CREATININE 0.7 mg/dL (0.55-1.3)
[2020-06-10 18:43] LABS: BILIRUBIN,TOTAL 0.6 mg/dL (0.2-1); TOT PROT 8.5 g/dl (6.4-8.2)
[2020-06-10 18:47] LABS: N-TERMINAL BNP 17.2 pg/ml (5-125)
== END 2020-06-10 19:10 | disposition home or self-care (01) ==
LOC: JER 15:27
DX: R07.9 Chest pain, unspecified (principal)
CPT/HCPCS: 36415; 71046-TC-FY; 80053; 82550; 82553; 83880; 84484; 85025; 93005; 93010; 99285-25

== ENCOUNTER 2020-11-08 12:39 | Emergency (ER) | payer OTHER ==
[2020-11-08 13:12] VITALS: BMI 28.6
[2020-11-08] MEDS ORDERED: traMADol HCL 50 MG TABLET PO ONE (14:10)
[2020-11-08] MEDS ORDERED: traMADol HCL 50 MG TABLET ONE (14:16)
[2020-11-08] MEDS ORDERED: HYDROmorphone HCL CARPU-JECT 2 MG/1 ML DISP.SYRIN IM ONE ×2 (14:34→16:57)
[2020-11-08] MEDS ORDERED: HYDROmorphone HCl 2 MG/ML VIAL ONE ×2 (14:41→17:09)
[2020-11-08 14:52] VITALS: TEMP 97.9
[2020-11-08 17:29] VITALS: BP 147/76; PULSE 73
== END 2020-11-08 17:28 | disposition home or self-care (01) ==
LOC: JER 12:39
PROC: 3E033NZ Introduction of Analgesics, Hypnotics, Sedatives into Peripheral Vein, Percutaneous Approach (ICD-10-PCS; principal; 2020-11-08)
PROC: 3E033NZ Introduction of Analgesics, Hypnotics, Sedatives into Peripheral Vein, Percutaneous Approach (ICD-10-PCS; 2020-11-08)
DX: N99.3 Prolapse of vaginal vault after hysterectomy (principal); N81.85 Cervical stump prolapse
CPT/HCPCS: 99284-25

== ENCOUNTER 2022-03-17 20:05 | Emergency (ER) | payer OTHER ==
[2022-03-17 20:35] VITALS: BP 161/96; PULSE 79; RESP 18; TEMP 98.5; BMI 27.6
[2022-03-17] MEDS ORDERED: BACLOFEN 10 MG TABLET (FP) PO ONE (21:34)
[2022-03-17] MEDS ORDERED: diphenhydrAMINE HCL 25 MG CAPSULE (FP) PO ONE ×2 (21:59)
== END 2022-03-17 22:12 | disposition home or self-care (01) ==
LOC: JER 20:05 → JERFT 20:05
DX: G89.4 Chronic pain syndrome (principal)
CPT/HCPCS: 93005; 93010; 99283-25

== ENCOUNTER 2022-04-27 04:50 | Emergency (ER) | payer OTHER ==
[2022-04-27 05:12] VITALS: BP 187/73; PULSE 68; RESP 18; TEMP 98.2; BMI 26.4
[2022-04-27] MEDS ORDERED: ACETAMINOPHEN 500 MG TABLET (FP) PO ONE (05:37)
[2022-04-27] MEDS ORDERED: ACETAMINOPHEN 325 MG TABLET (FP) ONE (06:04)
[2022-04-27 06:06] LABS: PH,URINE 6.5 (5.0-8.0); URINE APPEARANCE CLEAR; URINE BILIRUBIN NEGATIVE (NEGATIVE); URINE COLOR YELLOW; URINE GLUCOSE (UA) NEGATIVE (NEGATIVE); URINE KETONE NEGATIVE (NEGATIVE); URINE LEUK ESTERASE NEGATIVE (NEGATIVE); URINE NITRITE NEGATIVE (NEGATIVE); URINE PROTEIN NEGATIVE (NEGATIVE); URINE UROBILINOGEN 0.2 mg/dL (0.2-1.0)
[2022-04-27] MEDS ORDERED: morphine SULFATE 4 MG/ML VIAL IM ONE (06:28)
[2022-04-27 09:45] LABS: HIV INTERPRETATION NEGATIVE (NEGATIVE)
[2022-04-27 09:51] LABS: SYPHILIS W/ RPR CONF REACTIVE (NONREACTIVE)
== END 2022-04-27 07:20 | disposition home or self-care (01) ==
LOC: JER 04:50
PROC: 3E023GC Introduction of Other Therapeutic Substance into Muscle, Percutaneous Approach (ICD-10-PCS; principal; 2022-04-27)
DX: R30.0 Dysuria (principal); N89.8 Other specified noninflammatory disorders of vagina
CPT/HCPCS: 36415; 81003; 86593; 86780; 87086; 87389; 87491; 87591; 87661; 99284-25

== ENCOUNTER 2022-06-20 23:10 | Observation (INO) | payer OTHER ==
[2022-06-21] MEDS ORDERED: ACETAMINOPHEN INJECTION 100 ML IVPB ONE (00:51)
[2022-06-21] MEDS ORDERED: ACETAMINOPHEN 1000 MG/100 ML BAG IVPB ONE (00:53)
[2022-06-21] MEDS ORDERED: ONDANSETRON 4 MG/2 ML VIAL ONE (00:58)
[2022-06-21] MEDS ORDERED: ONDANSETRON 4 MG/2 ML VIAL IVPUSH ONE (00:58)
[2022-06-21 01:36] LABS: BASO % 0.7 % (0-2.0); EOS % 2.5 % (0-4.5); HEMATOCRIT 33.2 % (32.4-45.2); HEMOGLOBIN 11.1 GM/dL (10.7-15.3); LYMPH % 46.2 % (8-40); MCH 29.7 pg (25.7-33.7); MCHC 33.5 g/dl (32.0-36.0); MEAN CELL VOLUME 88.5 fl (80-96); MEAN PLT VOLUME 7.6 fl (7.5-11.1); MONO % 4.6 % (3.8-10.2); PLATELET COUNT 219 10^3/uL (134-434); RBC 3.75 M/mm3 (3.60-5.2); RDW 13.1 % (11.6-15.6); WHITE BLOOD COUNT 5.8 K/mm3 (4.0-10.0)
[2022-06-21 01:43] LABS: INR 1.05 (0.83-1.09); PROTHROMBIN TIME (PATIENT) 12.2 SEC (9.7-13.0)
[2022-06-21 01:54] LABS: ALBUMIN 3.7 g/dl (3.4-5.0); BLOOD UREA NITROGEN 13.7 mg/dL (7-18); CALCIUM 8.5 mg/dL (8.5-10.1)
[2022-06-21 01:57] LABS: CREATININE 0.6 mg/dL (0.55-1.3)
[2022-06-21 01:59] LABS: BILIRUBIN,TOTAL 0.1 mg/dL (0.2-1); TOT PROT 6.9 g/dl (6.4-8.2)
[2022-06-21] MEDS ORDERED: POTASSIUM CHLORIDE TABS 20 MEQ TABLET.ER (FP) PO ONE ×2 (03:31→04:01)
[2022-06-21] MEDS ORDERED: MAGNESIUM SULF 50% (8.12 MEQ/2 ML-1 GM VIAL) IVPB ONE (03:31)
[2022-06-21] MEDS ORDERED: MAGNESIUM SULFATE IN WATER 2 GM/50 ML IVPB IVPB ONE (04:01)
[2022-06-21 06:29] LABS: MAGNESIUM 1.8 mg/dL (1.8-2.4)
[2022-06-21] MEDS ORDERED: BACLOFEN 10 MG TABLET (FP) PO PRN (06:29)
[2022-06-21] MEDS ORDERED: DOCUSATE SODIUM 100 MG CAPSULE (FP) PO SCH (06:45)
[2022-06-21] MEDS ORDERED: hydrALAZINE HCL 20 MG/ML VIAL IVPUSH PRN (07:13)
[2022-06-21] MEDS ORDERED: DOCUSATE SODIUM 100 MG CAPSULE (FP) PO ONE (07:45)
[2022-06-21] MEDS ORDERED: carBAMazepine 200 MG TABLET ONE (07:45)
[2022-06-21] MEDS: carBAMazepine 100 MG TAB.CHEW PO SCH ×3 (07:48→22:10)
[2022-06-21] MEDS: DOCUSATE SODIUM 100 MG CAPSULE (FP) PO SCH ×2 (07:48→09:26)
[2022-06-21] MEDS ORDERED: amLODIPine BESYLATE 10 MG TABLET (FP) ONE (08:52)
[2022-06-21] MEDS ORDERED: LOSARTAN POTASSIUM 50 MG TABLET ONE (08:52)
[2022-06-21] MEDS ORDERED: ACETAMINOPHEN 325 MG TABLET (FP) ONE ×2 (08:53→14:17)
[2022-06-21] MEDS ORDERED: LIDOCAINE 5% TOPICAL PATCH ONE (08:53)
[2022-06-21] MEDS ORDERED: oxyCODONE HCL 5 MG TABLET ONE ×2 (08:53→14:17)
[2022-06-21] MEDS ORDERED: SERTRALINE HCL 50 MG TABLET (FP) ONE (08:53)
[2022-06-21] MEDS ORDERED: ENOXAPARIN NA (PORCINE) 40 MG/0.4 ML DISP.SYRIN SQ ONE (08:54)
[2022-06-21] MEDS: LIDOCAINE 5% TOPICAL PATCH TP SCH (09:26)
[2022-06-21] MEDS: LOSARTAN POTASSIUM 50 MG TABLET PO SCH (09:26)
[2022-06-21] MEDS: ENOXAPARIN NA (PORCINE) 40 MG/0.4 ML DISP.SYRIN SQ SCH (09:26)
[2022-06-21] MEDS: oxyCODONE HCL 5 MG TABLET PO SCH ×2 (09:27→14:29)
[2022-06-21] MEDS: amLODIPine BESYLATE 10 MG TABLET (FP) PO SCH (09:27)
[2022-06-21] MEDS: ACETAMINOPHEN 325 MG TABLET (FP) PO SCH ×2 (09:28→14:29)
[2022-06-21] MEDS: BUDESONIDE/FORMETEROL FUMARATE 80/4.5 mcg INHALER IH SCH (09:28)
[2022-06-21] MEDS: SERTRALINE HCL 50 MG TABLET (FP) PO SCH ×2 (09:28→21:19)
[2022-06-21] MEDS ORDERED: PATIENT'S OWN MEDICATION (NON-FORMULARY) (Oxycodone Hcl/Acetaminophen [Endocet 10-325 Mg T PO SCH (10:00)
[2022-06-21 10:25] LABS: HEMATOCRIT 31.8 % (32.4-45.2); HEMOGLOBIN 10.7 GM/dL (10.7-15.3); MCH 30.3 pg (25.7-33.7); MCHC 33.5 g/dl (32.0-36.0); MEAN CELL VOLUME 90.4 fl (80-96); MEAN PLT VOLUME 7.9 fl (7.5-11.1); PLATELET COUNT 211 10^3/uL (134-434); RBC 3.52 M/mm3 (3.60-5.2); RDW 12.9 % (11.6-15.6); WHITE BLOOD COUNT 5.6 K/mm3 (4.0-10.0)
[2022-06-21 10:42] LABS: ALBUMIN 3.5 g/dl (3.4-5.0); CALCIUM 8.3 mg/dL (8.5-10.1)
[2022-06-21 10:43] LABS: BLOOD UREA NITROGEN 14.6 mg/dL (7-18); MAGNESIUM 2.3 mg/dL (1.8-2.4)
[2022-06-21 10:46] LABS: CREATININE 0.6 mg/dL (0.55-1.3); PHOSPHOROUS 4.2 mg/dL (2.5-4.9)
[2022-06-21 10:47] LABS: BILIRUBIN,TOTAL 0.1 mg/dL (0.2-1); TOT PROT 6.5 g/dl (6.4-8.2)
[2022-06-21] MEDS ORDERED: OXYCODONE HCL PO PRN ×2 (16:40→16:50)
[2022-06-21] MEDS ORDERED: ACETAMINOPHEN PO PRN ×2 (16:40→16:50)
[2022-06-21 17:18] VITALS: BMI 27.1
[2022-06-21] MEDS: traZODone HCL 50 MG TABLET (FP) PO SCH (21:19)
[2022-06-21] MEDS: LIDOCAINE PATCH REMOVAL MC SCH (21:22)
[2022-06-22] MEDS ORDERED: ACETAMINOPHEN 325 MG TABLET (FP) PO PRN (01:27)
[2022-06-22] MEDS ORDERED: oxyCODONE HCL 5 MG TABLET PO PRN (01:27)
[2022-06-22] MEDS ORDERED: FAMOTIDINE 20 MG TABLET PO ONE (02:30)
[2022-06-22] MEDS: carBAMazepine 100 MG TAB.CHEW PO SCH (05:35)
[2022-06-22] MEDS: OXYCODONE HCL PO PRN ×3 (07:37→21:56)
[2022-06-22] MEDS: ACETAMINOPHEN PO PRN ×3 (07:37→21:56)
[2022-06-22] MEDS ORDERED: HYDROCHLOROTHIAZIDE 12.5 MG CAPSULE (FP) PO SCH (10:00)
[2022-06-22] MEDS: LOSARTAN POTASSIUM 50 MG TABLET PO SCH (11:08)
[2022-06-22] MEDS: amLODIPine BESYLATE 10 MG TABLET (FP) PO SCH (11:09)
[2022-06-22] MEDS: ENOXAPARIN NA (PORCINE) 40 MG/0.4 ML DISP.SYRIN SQ SCH (11:09)
[2022-06-22] MEDS: DOCUSATE SODIUM 100 MG CAPSULE (FP) PO SCH (11:09)
[2022-06-22] MEDS: LIDOCAINE 5% TOPICAL PATCH TP SCH (11:09)
[2022-06-22] MEDS: SERTRALINE HCL 50 MG TABLET (FP) PO SCH (11:24)
[2022-06-22] MEDS: BUDESONIDE/FORMETEROL FUMARATE 80/4.5 mcg INHALER IH SCH (11:32)
[2022-06-22] MEDS ORDERED: ONDANSETRON 4 MG/2 ML VIAL IVPUSH ONE (17:08)
[2022-06-22] MEDS ORDERED: ALPRAZolam 0.25 MG TABLET PO ONE (18:22)
[2022-06-22] MEDS ORDERED: ALPRAZolam 0.25 MG TABLET PO PRN (18:23)
[2022-06-22] MEDS: traZODone HCL 50 MG TABLET (FP) PO SCH (21:53)
[2022-06-22] MEDS ORDERED: carBAMazepine 200 MG TABLET PO SCH (22:00)
[2022-06-22] MEDS ORDERED: SERTRALINE HCL 50 MG TABLET (FP) PO SCH (22:00)
[2022-06-22] MEDS: LIDOCAINE PATCH REMOVAL MC SCH (22:05)
[2022-06-23 08:23] LABS: HEMATOCRIT 35.3 % (32.4-45.2); HEMOGLOBIN 11.9 GM/dL (10.7-15.3); MCH 30.3 pg (25.7-33.7); MCHC 33.8 g/dl (32.0-36.0); MEAN CELL VOLUME 89.9 fl (80-96); MEAN PLT VOLUME 7.4 fl (7.5-11.1); PLATELET COUNT 212 10^3/uL (134-434); RBC 3.92 M/mm3 (3.60-5.2); RDW 13.1 % (11.6-15.6); WHITE BLOOD COUNT 4.4 K/mm3 (4.0-10.0)
[2022-06-23 08:27] LABS: ALBUMIN 3.8 g/dl (3.4-5.0); CREATININE 0.5 mg/dL (0.55-1.3)
[2022-06-23 08:29] LABS: BILIRUBIN,TOTAL 0.3 mg/dL (0.2-1)
[2022-06-23 08:30] LABS: CALCIUM 9.1 mg/dL (8.5-10.1)
[2022-06-23] MEDS: OXYCODONE HCL PO PRN ×2 (08:36→13:15)
[2022-06-23] MEDS: ACETAMINOPHEN PO PRN ×2 (08:36→13:15)
[2022-06-23] MEDS: LIDOCAINE 5% TOPICAL PATCH TP SCH (09:25)
[2022-06-23] MEDS: DOCUSATE SODIUM 100 MG CAPSULE (FP) PO SCH (09:29)
[2022-06-23] MEDS: amLODIPine BESYLATE 10 MG TABLET (FP) PO SCH (09:29)
[2022-06-23] MEDS: ENOXAPARIN NA (PORCINE) 40 MG/0.4 ML DISP.SYRIN SQ SCH (09:29)
[2022-06-23] MEDS: LOSARTAN POTASSIUM 50 MG TABLET PO SCH (09:29)
[2022-06-23] MEDS: BUDESONIDE/FORMETEROL FUMARATE 80/4.5 mcg INHALER IH SCH (09:32)
[2022-06-23] MEDS ORDERED: carBAMazepine 100 MG TAB.CHEW PO SCH (10:00)
[2022-06-23] MEDS ORDERED: HYDROCHLOROTHIAZIDE 12.5 MG CAPSULE (FP) PO SCH (10:00)
[2022-06-23 10:02] VITALS: RESP 18
[2022-06-23] MEDS ORDERED: LOSARTAN POTASSIUM 50 MG TABLET PO ONE (12:13)
[2022-06-23 15:10] VITALS: BP 169/89; PULSE 98; TEMP 98.1
== END 2022-06-23 15:43 | disposition home or self-care (01) ==
LOC: JER 23:10 → JERBED 06-21 01:46 → UNDOADMOB 06-21 01:46 → OBSVTOIN 06-21 06:12 → INTOOBSV 06-21 06:12 → JERBED 06-21 14:30 → J4W 06-21 16:43
PROVIDERS: ADMIT Internal Medicine; ATTEND Internal Medicine
PROC: 3E033NZ Introduction of Analgesics, Hypnotics, Sedatives into Peripheral Vein, Percutaneous Approach (ICD-10-PCS; principal; 2022-06-21)
PROC: 3E033GC Introduction of Other Therapeutic Substance into Peripheral Vein, Percutaneous Approach (ICD-10-PCS; 2022-06-21)
PROC: 3E023GC Introduction of Other Therapeutic Substance into Muscle, Percutaneous Approach (ICD-10-PCS; 2022-06-21)
DX: I10 Essential (primary) hypertension (principal); E78.5 Hyperlipidemia, unspecified; M19.90 Unspecified osteoarthritis, unspecified site; G89.29 Other chronic pain; M54.2 Cervicalgia; F31.9 Bipolar disorder, unspecified; R07.89 Other chest pain; F17.210 Nicotine dependence, cigarettes, uncomplicated; F12.10 Cannabis abuse, uncomplicated; J45.909 Unspecified asthma, uncomplicated; K21.9 Gastro-esophageal reflux disease without esophagitis; Z88.8 Allergy status to other drugs, medicaments and biological substances; R55 Syncope and collapse
CPT/HCPCS: 36415; 70450-TC; 71045-TC-FY; 80053; 80061; 83036; 83735; 84100; 84436; 84443; 84479; 84484; 85025; 85027; 85610; 93005; 93010; 93306-TC; 93880-TC; 96372; 96374; 96375; 96376; 99285-25; C9803-CS; G0378; U0003; U0005

== ENCOUNTER 2022-11-29 14:23 | Emergency (ER) | payer OTHER ==
[2022-11-29 14:59] VITALS: RESP 18; TEMP 98; BMI 26.4
[2022-11-29] MEDS ORDERED: ACETAMINOPHEN 1000 MG/100 ML BAG IVPB ONE (15:29)
[2022-11-29] MEDS ORDERED: LORazepam 2 MG TABLET PO ONE (15:29)
[2022-11-29] MEDS ORDERED: METOCLOPRAMIDE HCL INJECTION 10 MG/2 ML VIAL IVPUSH ONE (15:30)
[2022-11-29 15:36] LABS: BASO % 1.2 % (0-2.0); EOS % 0.9 % (0-4.5); HEMATOCRIT 36.3 % (32.4-45.2); HEMOGLOBIN 12.2 GM/dL (10.7-15.3); MCH 30.1 pg (25.7-33.7); MCHC 33.7 g/dl (32.0-36.0); MEAN CELL VOLUME 89.5 fl (80-96); MEAN PLT VOLUME 7.5 fl (7.5-11.1); MONO % 4.7 % (3.8-10.2); NEUT % 60.2 % (42.8-82.8); PLATELET COUNT 216 10^3/uL (134-434); RBC 4.05 M/mm3 (3.60-5.2); RDW 13.2 % (11.6-15.6); WHITE BLOOD COUNT 5.7 K/mm3 (4.0-10.0)
[2022-11-29 15:44] LABS: INR 1.14 (0.83-1.09); PROTHROMBIN TIME (PATIENT) 13.2 SEC (9.7-13.0)
[2022-11-29 15:46] LABS: URINE APPEARANCE CLEAR; URINE BILIRUBIN NEGATIVE (NEGATIVE); URINE COLOR YELLOW; URINE GLUCOSE (UA) NEGATIVE (NEGATIVE); URINE KETONE NEGATIVE (NEGATIVE); URINE LEUK ESTERASE NEGATIVE (NEGATIVE); URINE NITRITE NEGATIVE (NEGATIVE); URINE PROTEIN NEGATIVE (NEGATIVE); URINE UROBILINOGEN 0.2 mg/dL (0.2-1.0)
[2022-11-29 15:46] LABS: ACTIVATED PTT 31.7 SECONDS (25.2-36.5)
[2022-11-29] MEDS ORDERED: ACETAMINOPHEN INJECTION 100 ML IVPB ONE (15:46)
[2022-11-29] MEDS ORDERED: METOCLOPRAMIDE HCL INJECTION 10 MG/2 ML VIAL ONE (15:46)
[2022-11-29] MEDS ORDERED: LORazepam 1 MG TABLET ONE (15:46)
[2022-11-29 15:52] LABS: POTASSIUM 4.5 mmol/L (3.5-5.1)
[2022-11-29 15:54] LABS: CALCIUM 8.6 mg/dL (8.5-10.1)
[2022-11-29 15:55] LABS: BLOOD UREA NITROGEN 7.7 mg/dL (7-18)
[2022-11-29 15:58] LABS: CREATININE 0.5 mg/dL (0.55-1.3)
[2022-11-29 15:59] LABS: TOT PROT 7.5 g/dl (6.4-8.2)
[2022-11-29 16:00] LABS: BILIRUBIN,TOTAL 0.3 mg/dL (0.2-1)
[2022-11-29 19:48] VITALS: BP 180/76; PULSE 70
== END 2022-11-29 19:49 | disposition home or self-care (01) ==
LOC: JER 14:23
PROC: 3E033NZ Introduction of Analgesics, Hypnotics, Sedatives into Peripheral Vein, Percutaneous Approach (ICD-10-PCS; principal; 2022-11-29)
PROC: 3E033GC Introduction of Other Therapeutic Substance into Peripheral Vein, Percutaneous Approach (ICD-10-PCS; 2022-11-29)
DX: R07.9 Chest pain, unspecified (principal); R11.0 Nausea; M54.2 Cervicalgia; Z20.822 Contact with and (suspected) exposure to COVID-19
CPT/HCPCS: 0241U-QW; 36415; 71045-TC-FY; 72125-TC; 80053; 81003; 83735; 84484; 85025; 85610; 85730; 87086; 93005; 93010; 99285-25

== ENCOUNTER 2022-12-03 14:24 | Observation (INO) | payer OTHER ==
[2022-12-03] MEDS ORDERED: IBUPROFEN 400 MG TABLET (FP) PO ONE ×2 (15:55→16:03)
[2022-12-03 17:35] LABS: BASO % 1.4 % (0-2.0); EOS % 1.2 % (0-4.5); HEMATOCRIT 37.8 % (32.4-45.2); HEMOGLOBIN 12.6 GM/dL (10.7-15.3); LYMPH % 39.3 % (8-40); MCH 30.5 pg (25.7-33.7); MCHC 33.4 g/dl (32.0-36.0); MEAN CELL VOLUME 91.4 fl (80-96); MEAN PLT VOLUME 8.1 fl (7.5-11.1); MONO % 3.2 % (3.8-10.2); NEUT % 54.9 % (42.8-82.8); PLATELET COUNT 226 10^3/uL (134-434); RBC 4.14 M/mm3 (3.60-5.2); RDW 13.3 % (11.6-15.6); WHITE BLOOD COUNT 6.8 K/mm3 (4.0-10.0)
[2022-12-03 17:40] LABS: INR 1.12 (0.83-1.09); POTASSIUM 4.1 mmol/L (3.5-5.1)
[2022-12-03 17:42] LABS: CALCIUM 9.2 mg/dL (8.5-10.1)
[2022-12-03 17:43] LABS: ACTIVATED PTT 31.4 SECONDS (25.2-36.5); ALBUMIN 4.4 g/dl (3.4-5.0); BLOOD UREA NITROGEN 6.9 mg/dL (7-18)
[2022-12-03 17:46] LABS: CREATININE 0.6 mg/dL (0.55-1.3)
[2022-12-03 17:47] LABS: BILIRUBIN,TOTAL 0.3 mg/dL (0.2-1)
[2022-12-03] MEDS ORDERED: ACETAMINOPHEN 325 MG TABLET (FP) ONE (21:31)
[2022-12-03] MEDS ORDERED: LIDOCAINE 5% TOPICAL PATCH ONE (21:31)
[2022-12-03] MEDS ORDERED: oxyCODONE HCL 5 MG TABLET PO PRN (21:43)
[2022-12-03] MEDS ORDERED: ACETAMINOPHEN 325 MG TABLET (FP) PO PRN (21:44)
[2022-12-03] MEDS ORDERED: LIDOCAINE 5% TOPICAL PATCH TP ONE (21:52)
[2022-12-03] MEDS ORDERED: LORazepam 2 MG/ML SDV VIAL IM ONE (21:52)
[2022-12-03] MEDS ORDERED: LOSARTAN POTASSIUM 50 MG TABLET ONE (21:54)
[2022-12-03] MEDS ORDERED: amLODIPine BESYLATE 10 MG TABLET (FP) ONE (21:54)
[2022-12-03] MEDS ORDERED: carBAMazepine 200 MG TABLET ONE (21:54)
[2022-12-03] MEDS ORDERED: ATORVASTATIN CA 40 MG TABLET (FP) ONE (21:55)
[2022-12-03] MEDS ORDERED: LORazepam 1 MG TABLET PO ONE (21:55)
[2022-12-03] MEDS ORDERED: traZODone HCL 100 MG TABLET (FP) ONE (21:55)
[2022-12-03] MEDS ORDERED: SERTRALINE HCL 50 MG TABLET (FP) ONE (21:55)
[2022-12-03] MEDS ORDERED: LORazepam 1 MG TABLET ONE (21:56)
[2022-12-03] MEDS ORDERED: PATIENT'S OWN MEDICATION (NON-FORMULARY) (Trazodone Hcl [Trazodone Hcl] 150 MG Tablet) PO SCH (22:00)
[2022-12-03] MEDS ORDERED: PATIENT'S OWN MEDICATION (NON-FORMULARY) (Sertraline Hcl [Zoloft] 100 MG Tablet) PO SCH (22:00)
[2022-12-03] MEDS ORDERED: diphenhydrAMINE HCL 25 MG CAPSULE (FP) PO ONE ×2 (22:05)
[2022-12-03] MEDS: ATORVASTATIN CA 40 MG TABLET (FP) PO SCH (22:07)
[2022-12-03] MEDS: LIDOCAINE PATCH REMOVAL MC SCH ×2 (22:07→22:09)
[2022-12-03] MEDS: carBAMazepine 100 MG TAB.CHEW PO SCH (22:08)
[2022-12-03] MEDS ORDERED: traZODone HCL 50 MG TABLET (FP) PO SCH (22:16)
[2022-12-04] MEDS ORDERED: ACETAMINOPHEN 325 MG TABLET (FP) PO PRN (01:58)
[2022-12-04] MEDS: carBAMazepine 100 MG TAB.CHEW PO SCH ×3 (06:24→21:33)
[2022-12-04 08:10] LABS: HEMATOCRIT 36.3 % (32.4-45.2); HEMOGLOBIN 11.8 GM/dL (10.7-15.3); MCH 29.9 pg (25.7-33.7); MCHC 32.6 g/dl (32.0-36.0); MEAN CELL VOLUME 91.7 fl (80-96); MEAN PLT VOLUME 7.5 fl (7.5-11.1); PLATELET COUNT 192 10^3/uL (134-434); RBC 3.95 M/mm3 (3.60-5.2); RDW 13.3 % (11.6-15.6)
[2022-12-04 08:14] LABS: CALCIUM 8.8 mg/dL (8.5-10.1)
[2022-12-04 08:15] LABS: ALBUMIN 3.9 g/dl (3.4-5.0); BLOOD UREA NITROGEN 10.3 mg/dL (7-18)
[2022-12-04 08:18] LABS: CREATININE 0.5 mg/dL (0.55-1.3)
[2022-12-04 08:19] LABS: BILIRUBIN,TOTAL 0.4 mg/dL (0.2-1); TOT PROT 6.9 g/dl (6.4-8.2)
[2022-12-04] MEDS: NICOTINE 7 MG/24 HOURS TOPICAL PATCH TD SCH (10:10)
[2022-12-04] MEDS: HYDROCHLOROTHIAZIDE 12.5 MG CAPSULE (FP) PO SCH (10:11)
[2022-12-04] MEDS: SERTRALINE HCL 50 MG TABLET (FP) PO SCH ×2 (10:11→21:33)
[2022-12-04] MEDS: amLODIPine BESYLATE 10 MG TABLET (FP) PO SCH (10:11)
[2022-12-04] MEDS: LOSARTAN POTASSIUM 50 MG TABLET PO SCH (10:12)
[2022-12-04] MEDS: LIDOCAINE 5% TOPICAL PATCH TP SCH (10:12)
[2022-12-04] MEDS: ENOXAPARIN NA (PORCINE) 40 MG/0.4 ML DISP.SYRIN SQ SCH (10:12)
[2022-12-04] MEDS ORDERED: morphine CARPU-JECT 2 MG/1 ML DISP.SYRIN IVPUSH PRN (12:15)
[2022-12-04] MEDS ORDERED: hydrALAZINE HCL 20 MG/ML VIAL IVPUSH PRN (12:18)
[2022-12-04 13:29] LABS: HIV INTERPRETATION NEGATIVE (NEGATIVE)
[2022-12-04] MEDS ORDERED: ONDANSETRON 4 MG/2 ML VIAL IVPB ONE (16:32)
[2022-12-04] MEDS: ATORVASTATIN CA 40 MG TABLET (FP) PO SCH (21:33)
[2022-12-04] MEDS: LIDOCAINE PATCH REMOVAL MC SCH ×2 (21:38)
[2022-12-04 22:03] LABS: URINE APPEARANCE CLEAR; URINE BILIRUBIN NEGATIVE (NEGATIVE); URINE COLOR YELLOW; URINE GLUCOSE (UA) NEGATIVE (NEGATIVE); URINE KETONE NEGATIVE (NEGATIVE); URINE LEUK ESTERASE NEGATIVE (NEGATIVE); URINE NITRITE NEGATIVE (NEGATIVE); URINE PROTEIN NEGATIVE (NEGATIVE)
[2022-12-05] MEDS: MELATONIN 5 MG TABLETS PO ONE ×2 (00:58→04:09)
[2022-12-05] MEDS: carBAMazepine 100 MG TAB.CHEW PO SCH ×3 (06:28→13:06)
[2022-12-05 09:02] VITALS: RESP 18
[2022-12-05] MEDS: ENOXAPARIN NA (PORCINE) 40 MG/0.4 ML DISP.SYRIN SQ SCH (09:15)
[2022-12-05] MEDS: HYDROCHLOROTHIAZIDE 12.5 MG CAPSULE (FP) PO SCH (09:16)
[2022-12-05] MEDS: amLODIPine BESYLATE 10 MG TABLET (FP) PO SCH (09:16)
[2022-12-05] MEDS: NICOTINE 7 MG/24 HOURS TOPICAL PATCH TD SCH (09:16)
[2022-12-05] MEDS: LOSARTAN POTASSIUM 50 MG TABLET PO SCH (09:16)
[2022-12-05] MEDS: SERTRALINE HCL 50 MG TABLET (FP) PO SCH ×2 (09:16→09:27)
[2022-12-05] MEDS: LIDOCAINE 5% TOPICAL PATCH TP SCH ×2 (09:16→09:26)
[2022-12-05 10:03] LABS: BASO % 0.8 % (0-2.0); EOS % 1.5 % (0-4.5); HEMATOCRIT 40.3 % (32.4-45.2); HEMOGLOBIN 13.1 GM/dL (10.7-15.3); LYMPH % 34.6 % (8-40); MCH 29.8 pg (25.7-33.7); MCHC 32.6 g/dl (32.0-36.0); MEAN CELL VOLUME 91.5 fl (80-96); MEAN PLT VOLUME 7.9 fl (7.5-11.1); MONO % 4.3 % (3.8-10.2); NEUT % 58.8 % (42.8-82.8); PLATELET COUNT 203 10^3/uL (134-434); RDW 13.2 % (11.6-15.6); WHITE BLOOD COUNT 5.8 K/mm3 (4.0-10.0)
[2022-12-05 10:13] LABS: POTASSIUM 4.1 mmol/L (3.5-5.1)
[2022-12-05 10:23] LABS: CALCIUM 9.5 mg/dL (8.5-10.1)
[2022-12-05 10:24] LABS: BLOOD UREA NITROGEN 12.5 mg/dL (7-18)
[2022-12-05 10:25] LABS: ALBUMIN 4.2 g/dl (3.4-5.0)
[2022-12-05 10:27] LABS: CREATININE 0.6 mg/dL (0.55-1.3); PHOSPHOROUS 4.7 mg/dL (2.5-4.9)
[2022-12-05 10:28] LABS: BILIRUBIN,TOTAL 0.3 mg/dL (0.2-1); TOT PROT 7.9 g/dl (6.4-8.2)
[2022-12-05 12:52] VITALS: BMI 25.4
[2022-12-05] MEDS ORDERED: LIDOCAINE 5% TOPICAL PATCH TP ONE (14:00)
[2022-12-05 14:16] VITALS: BP 160/80; PULSE 72; TEMP 99.1
[2022-12-05] MEDS ORDERED: LIDOCAINE PATCH REMOVAL MC ONE (22:00)
== END 2022-12-05 15:38 | disposition home or self-care (01) ==
LOC: JER 14:24 → JERBED 16:08 → J4S 12-04 00:23
PROVIDERS: ADMIT Internal Medicine; ATTEND Internal Medicine
PROC: 3E023GC Introduction of Other Therapeutic Substance into Muscle, Percutaneous Approach (ICD-10-PCS; principal; 2022-12-03)
PROC: 3E033NZ Introduction of Analgesics, Hypnotics, Sedatives into Peripheral Vein, Percutaneous Approach (ICD-10-PCS; 2022-12-03)
PROC: 3E033GC Introduction of Other Therapeutic Substance into Peripheral Vein, Percutaneous Approach (ICD-10-PCS; 2022-12-03)
DX: I10 Essential (primary) hypertension (principal); K21.9 Gastro-esophageal reflux disease without esophagitis; F31.9 Bipolar disorder, unspecified; R06.02 Shortness of breath; E78.00 Pure hypercholesterolemia, unspecified; J45.909 Unspecified asthma, uncomplicated; Z88.8 Allergy status to other drugs, medicaments and biological substances; Z91.041 Radiographic dye allergy status; Z87.891 Personal history of nicotine dependence; Z88.0 Allergy status to penicillin; M79.7 Fibromyalgia; M51.9 Unspecified thoracic, thoracolumbar and lumbosacral intervertebral disc disorder
CPT/HCPCS: 36415; 71045-TC-FY; 80053; 81003; 82550; 83735; 84100; 84484; 85025; 85027; 85610; 85730; 86803; 87389; 93005; 93010; 96372; 96374; 96375; 99285-25; G0378

== ENCOUNTER 2023-05-18 17:08 | Emergency (ER) | payer OTHER ==
[2023-05-18 17:15] VITALS: TEMP 98.2; BMI 25.7
[2023-05-18] MEDS ORDERED: morphine SULFATE 4 MG/ML VIAL ONE ×2 (18:05→22:55)
[2023-05-18] MEDS: morphine CARPU-JECT 2 MG/1 ML DISP.SYRIN IVPUSH ONE (18:19)
[2023-05-18] MEDS: morphine CARPU-JECT 4 MG/1 ML DISP.SYRIN IVPUSH ONE (18:19)
[2023-05-18] MEDS ORDERED: ONDANSETRON 4 MG/2 ML VIAL ONE (18:26)
[2023-05-18 18:27] LABS: BASO % 0.5 % (0-2.0); EOS % 1.6 % (0-4.5); HEMATOCRIT 37.5 % (32.4-45.2); HEMOGLOBIN 12.7 GM/dL (10.7-15.3); LYMPH % 37.6 % (8-40); MCH 30.8 pg (25.7-33.7); MCHC 33.9 g/dl (32.0-36.0); MEAN CELL VOLUME 90.8 fl (80-96); MEAN PLT VOLUME 7.1 fl (7.5-11.1); MONO % 4.4 % (3.8-10.2); NEUT % 55.9 % (42.8-82.8); PLATELET COUNT 239 10^3/uL (134-434); RBC 4.13 M/mm3 (3.60-5.2); RDW 13.4 % (11.6-15.6)
[2023-05-18 18:34] LABS: INR 1.09 (0.83-1.09); PROTHROMBIN TIME (PATIENT) 12.6 SEC (9.7-13.0)
[2023-05-18 18:36] LABS: ACTIVATED PTT 30.1 SECONDS (25.2-36.5)
[2023-05-18] MEDS: ONDANSETRON 4 MG/2 ML VIAL IVPUSH ONE (18:38)
[2023-05-18 18:45] LABS: POTASSIUM 3.4 mmol/L (3.5-5.1)
[2023-05-18 18:47] LABS: CALCIUM 9.5 mg/dL (8.5-10.1)
[2023-05-18 18:48] LABS: ALBUMIN 4.5 g/dl (3.4-5.0); BLOOD UREA NITROGEN 10.8 mg/dL (7-18)
[2023-05-18 18:51] LABS: CREATININE 0.7 mg/dL (0.55-1.3)
[2023-05-18 18:52] LABS: BILIRUBIN,TOTAL 0.3 mg/dL (0.2-1); TOT PROT 8.1 g/dl (6.4-8.2)
[2023-05-18] MEDS: LACTATED RINGERS SOLUTION 1000 ML INFUS.BAG IV ONE (19:28)
[2023-05-18 19:36] LABS: PH,URINE 5.5 (5.0-8.0); URINE APPEARANCE CLEAR; URINE BILIRUBIN NEGATIVE (NEGATIVE); URINE COLOR YELLOW; URINE GLUCOSE (UA) NEGATIVE (NEGATIVE); URINE KETONE TRACE (NEGATIVE); URINE LEUK ESTERASE NEGATIVE (NEGATIVE); URINE NITRITE NEGATIVE (NEGATIVE); URINE PROTEIN NEGATIVE (NEGATIVE); URINE UROBILINOGEN 0.2 mg/dL (0.2-1.0)
[2023-05-18 23:04] VITALS: BP 157/82; PULSE 76; RESP 19
[2023-05-18] MEDS: morphine CARPU-JECT 2 MG/1 ML DISP.SYRIN IM ONE (23:04)
== END 2023-05-18 23:18 | disposition home or self-care (01) ==
LOC: JER 17:08
PROC: 3E033GC Introduction of Other Therapeutic Substance into Peripheral Vein, Percutaneous Approach (ICD-10-PCS; principal; 2023-05-18)
PROC: 3E033GC Introduction of Other Therapeutic Substance into Peripheral Vein, Percutaneous Approach (ICD-10-PCS; 2023-05-18)
PROC: 3E033GC Introduction of Other Therapeutic Substance into Peripheral Vein, Percutaneous Approach (ICD-10-PCS; 2023-05-18)
DX: R07.9 Chest pain, unspecified (principal); R10.9 Unspecified abdominal pain; M79.661 Pain in right lower leg; M79.662 Pain in left lower leg; M79.621 Pain in right upper arm; M79.622 Pain in left upper arm; G89.29 Other chronic pain; N89.9 Noninflammatory disorder of vagina, unspecified; Z20.822 Contact with and (suspected) exposure to COVID-19
CPT/HCPCS: 0241U-QW; 36415; 71045-TC-FY; 80053; 81003; 84484; 85025; 85610; 85730; 86850; 86900; 86901; 87086; 93005; 93010; 96374; 96375; 96376; 99285-25

== ENCOUNTER 2023-05-20 11:29 | Emergency (ER) | payer OTHER ==
[2023-05-20 11:32] VITALS: BP 146/69; PULSE 70; RESP 18; TEMP 97; BMI 19.7
[2023-05-20] MEDS ORDERED: BACITRACIN ZINC 15 GM TUBE TOPICAL OINTMENT ONE (11:59)
[2023-05-20] MEDS ORDERED: DIPHTH,PERTUSS(ACELL),TET 0.5 ML DISP.SYRIN IM ONE (11:59)
[2023-05-20] MEDS: DIPHTH,PERTUSS(ACELL),TET 0.5 ML DISP.SYRIN IM ONE (12:06)
[2023-05-20] MEDS: BACITRACIN ZINC 15 GM TUBE TOPICAL OINTMENT TP ONE (12:08)
[2023-05-20] MEDS: LIDOCAINE HCL 5% TOP OINTMENT 50 GM TUBE TP ONE (12:35)
[2023-05-20] MEDS: morphine CARPU-JECT 2 MG/1 ML DISP.SYRIN IM ONE (12:40)
== END 2023-05-20 12:45 | disposition home or self-care (01) ==
LOC: JERFT 11:29
PROC: 3E033GC Introduction of Other Therapeutic Substance into Peripheral Vein, Percutaneous Approach (ICD-10-PCS; principal; 2023-05-20)
PROC: 3E0234Z Introduction of Serum, Toxoid and Vaccine into Muscle, Percutaneous Approach (ICD-10-PCS; 2023-05-20)
DX: T21.22XA Burn of second degree of abdominal wall, initial encounter (principal); T31.0 Burns involving less than 10% of body surface; X12.XXXA Contact with other hot fluids, initial encounter; Y93.G3 Activity, cooking and baking; Y92.000 Kitchen of unspecified non-institutional (private) residence as the place of occurrence of the external cause
CPT/HCPCS: 90471; 90715; 96374; 99284-25

== ENCOUNTER 2023-08-20 11:18 | Inpatient (IN) | payer OTHER ==
[2023-08-20] MEDS ORDERED: ACETAMINOPHEN INJECTION 100 ML IVPB ONE (12:33)
[2023-08-20] MEDS ORDERED: ONDANSETRON 4 MG/2 ML VIAL ONE (12:33)
[2023-08-20 12:34] LABS: BASO % 0.6 % (0-2.0); EOS % 1.9 % (0-4.5); HEMATOCRIT 36.4 % (32.4-45.2); HEMOGLOBIN 12.5 GM/dL (10.7-15.3); LYMPH % 28.5 % (8-40); MCH 31.3 pg (25.7-33.7); MCHC 34.4 g/dl (32.0-36.0); MEAN PLT VOLUME 7.1 fl (7.5-11.1); MONO % 3.5 % (3.8-10.2); NEUT % 65.5 % (42.8-82.8); PLATELET COUNT 219 10^3/uL (134-434); RDW 13.1 % (11.6-15.6); WHITE BLOOD COUNT 6.6 K/mm3 (4.0-10.0)
[2023-08-20] MEDS: LACTATED RINGERS SOLUTION 1000 ML INFUS.BAG IV ONE (12:45)
[2023-08-20] MEDS: ACETAMINOPHEN 1000 MG/100 ML BAG IVPB ONE (12:45)
[2023-08-20] MEDS: ONDANSETRON 4 MG/2 ML VIAL IVPUSH ONE (12:45)
[2023-08-20 12:53] LABS: POTASSIUM 4.4 mmol/L (3.5-5.1)
[2023-08-20 12:55] LABS: BLOOD UREA NITROGEN 8.1 mg/dL (7-18); CALCIUM 9.6 mg/dL (8.5-10.1); MAGNESIUM 2.1 mg/dL (1.8-2.4)
[2023-08-20 12:56] LABS: ALBUMIN 4.2 g/dl (3.4-5.0)
[2023-08-20 12:58] LABS: CREATININE 0.7 mg/dL (0.55-1.3)
[2023-08-20 12:59] LABS: BILIRUBIN,TOTAL 0.3 mg/dL (0.2-1)
[2023-08-20 13:00] LABS: TOT PROT 8.4 g/dl (6.4-8.2)
[2023-08-20] MEDS ORDERED: morphine SULFATE 4 MG/ML VIAL ONE (14:24)
[2023-08-20] MEDS: morphine CARPU-JECT 4 MG/1 ML DISP.SYRIN IVPUSH ONE (14:32)
[2023-08-20] MEDS ORDERED: METOCLOPRAMIDE HCL INJECTION 10 MG/2 ML VIAL ONE (15:05)
[2023-08-20] MEDS: METOCLOPRAMIDE HCL INJECTION 10 MG/2 ML VIAL IVPB ONE (15:09)
[2023-08-20 16:23] LABS: PH,URINE 6.5 (5.0-8.0); URINE APPEARANCE CLEAR; URINE BILIRUBIN NEGATIVE (NEGATIVE); URINE COLOR YELLOW; URINE GLUCOSE (UA) NEGATIVE (NEGATIVE); URINE KETONE NEGATIVE (NEGATIVE); URINE LEUK ESTERASE NEGATIVE (NEGATIVE); URINE NITRITE NEGATIVE (NEGATIVE); URINE PROTEIN NEGATIVE (NEGATIVE); URINE UROBILINOGEN 0.2 mg/dL (0.2-1.0)
[2023-08-20] MEDS: LACTATED RINGERS SOLUTION 1,000 ML/1,000 ML INFUS.BAG IV SCH (20:51)
[2023-08-20] MEDS: ONDANSETRON 4 MG/2 ML VIAL IVPUSH PRN (20:59)
[2023-08-20] MEDS: PREGABALIN 50 MG CAPSULE PO SCH (22:05)
[2023-08-20] MEDS: traZODone HCL 50 MG TABLET (FP) PO SCH (22:05)
[2023-08-20] MEDS: SERTRALINE HCL 50 MG TABLET (FP) PO SCH (22:05)
[2023-08-20] MEDS: carBAMazepine 200 MG TABLET PO SCH (22:05)
[2023-08-20] MEDS: hydrALAZINE HCL 50 MG TABLET (FP) PO SCH (22:05)
[2023-08-20] MEDS: ATORVASTATIN CA 40 MG TABLET (FP) PO SCH (22:05)
[2023-08-20] MEDS: ACETAMINOPHEN 1000 MG/100 ML BAG IVPB PRN (22:20)
[2023-08-20 22:32] VITALS: RESP 18
[2023-08-21 07:06] LABS: BASO % 0.9 % (0-2.0); EOS % 1.8 % (0-4.5); HEMATOCRIT 31.5 % (32.4-45.2); HEMOGLOBIN 10.6 GM/dL (10.7-15.3); LYMPH % 39.8 % (8-40); MCH 30.9 pg (25.7-33.7); MCHC 33.7 g/dl (32.0-36.0); MEAN CELL VOLUME 91.8 fl (80-96); MEAN PLT VOLUME 7.2 fl (7.5-11.1); MONO % 5.3 % (3.8-10.2); NEUT % 52.2 % (42.8-82.8); PLATELET COUNT 187 10^3/uL (134-434); RBC 3.43 M/mm3 (3.60-5.2); RDW 12.8 % (11.6-15.6); WHITE BLOOD COUNT 4.8 K/mm3 (4.0-10.0)
[2023-08-21 07:28] LABS: POTASSIUM 3.7 mmol/L (3.5-5.1)
[2023-08-21 07:45] LABS: ALBUMIN 3.4 g/dl (3.4-5.0); CALCIUM 9.1 mg/dL (8.5-10.1)
[2023-08-21 07:46] LABS: BLOOD UREA NITROGEN 8.6 mg/dL (7-18); MAGNESIUM 1.7 mg/dL (1.8-2.4)
[2023-08-21 07:49] LABS: CREATININE 0.5 mg/dL (0.55-1.3)
[2023-08-21 07:51] LABS: BILIRUBIN,TOTAL 0.3 mg/dL (0.2-1)
[2023-08-21 08:07] LABS: TOT PROT 6.4 g/dl (6.4-8.2)
[2023-08-21] MEDS ORDERED: hydrALAZINE HCL 50 MG TABLET (FP) PO SCH (10:00)
[2023-08-21] MEDS ORDERED: ACETAMINOPHEN 1000 MG/100 ML BAG IVPB PRN (10:04)
[2023-08-21] MEDS: TRIMETHOBENZAMIDE HCL 200MG/2ML INJ IM PRN (10:35)
[2023-08-21] MEDS: amLODIPine BESYLATE 10 MG TABLET (FP) PO SCH (11:44)
[2023-08-21] MEDS: LOSARTAN POTASSIUM 50 MG TABLET PO SCH (11:44)
[2023-08-21] MEDS: HYDROCHLOROTHIAZIDE 12.5 MG CAPSULE (FP) PO SCH (11:44)
[2023-08-21] MEDS: MAGNESIUM OXIDE 400 MG TABLET (FP) PO ONE (11:51)
[2023-08-21] MEDS: LIDOCAINE 4% PATCH TP SCH (11:54)
[2023-08-21] MEDS: ENOXAPARIN NA (PORCINE) 40 MG/0.4 ML DISP.SYRIN SQ SCH (11:58)
[2023-08-21] MEDS: LACTATED RINGERS SOLUTION 1,000 ML/1,000 ML INFUS.BAG IV SCH (11:58)
[2023-08-21] MEDS: carBAMazepine 200 MG TABLET PO SCH (21:35)
[2023-08-21] MEDS: LIDOCAINE PATCH REMOVAL MC SCH (21:37)
[2023-08-22 08:29] LABS: HEMATOCRIT 32.7 % (32.4-45.2); HEMOGLOBIN 11.3 GM/dL (10.7-15.3); MCH 31.2 pg (25.7-33.7); MCHC 34.6 g/dl (32.0-36.0); MEAN CELL VOLUME 90.4 fl (80-96); MEAN PLT VOLUME 7.4 fl (7.5-11.1); PLATELET COUNT 192 10^3/uL (134-434); RBC 3.62 M/mm3 (3.60-5.2); RDW 12.9 % (11.6-15.6); WHITE BLOOD COUNT 5.5 K/mm3 (4.0-10.0)
[2023-08-22 08:52] LABS: CALCIUM 8.4 mg/dL (8.5-10.1)
[2023-08-22 08:53] LABS: BLOOD UREA NITROGEN 7.5 mg/dL (7-18); MAGNESIUM 1.7 mg/dL (1.8-2.4)
[2023-08-22 08:56] LABS: CREATININE 0.4 mg/dL (0.55-1.3)
[2023-08-22 08:57] LABS: PHOSPHOROUS 3.8 mg/dL (2.5-4.9)
[2023-08-22 09:12] LABS: POTASSIUM 3.5 mmol/L (3.5-5.1)
[2023-08-22] MEDS: carBAMazepine 200 MG TABLET PO SCH (10:29)
[2023-08-22] MEDS: MAGNESIUM OXIDE 400 MG TABLET (FP) PO ONE (13:40)
[2023-08-22 13:43] VITALS: BMI 28.2
[2023-08-23] MEDS ORDERED: ACETAMINOPHEN 325 MG TABLET (FP) PO PRN (08:12)
[2023-08-23 08:21] LABS: HEMATOCRIT 30.4 % (32.4-45.2); HEMOGLOBIN 10.7 GM/dL (10.7-15.3); MCH 31.7 pg (25.7-33.7); MCHC 35.3 g/dl (32.0-36.0); MEAN CELL VOLUME 89.9 fl (80-96); MEAN PLT VOLUME 7.1 fl (7.5-11.1); PLATELET COUNT 186 10^3/uL (134-434); RBC 3.39 M/mm3 (3.60-5.2); RDW 12.8 % (11.6-15.6)
[2023-08-23 08:43] LABS: POTASSIUM 3.4 mmol/L (3.5-5.1)
[2023-08-23 08:48] LABS: CALCIUM 8.4 mg/dL (8.5-10.1)
[2023-08-23 08:49] LABS: BLOOD UREA NITROGEN 6.1 mg/dL (7-18); MAGNESIUM 1.7 mg/dL (1.8-2.4)
[2023-08-23 08:52] LABS: CREATININE 0.4 mg/dL (0.55-1.3)
[2023-08-23] MEDS: LACTATED RINGERS SOLUTION 1,000 ML/1,000 ML INFUS.BAG IV SCH (12:46)
[2023-08-23] MEDS: MAGNESIUM SULF 50% (8.12 MEQ/2 ML-1 GM VIAL) IVPB ONE (12:50)
[2023-08-23] MEDS: POTASSIUM CHLORIDE TABS 20 MEQ TABLET.ER (FP) PO ONE (13:47)
[2023-08-23] MEDS: POTASSIUM CHLORIDE ORAL LIQUID 20 MEQ/15 ML PO ONE (13:54)
[2023-08-23] MEDS: ACETAMINOPHEN 1000 MG/100 ML BAG IVPB ONE (15:15)
[2023-08-23] MEDS: VANCOMYCIN 250 MG/5 ML ORAL SOLUTION (RESTRICTED TO ID ONLY) PO SCH (18:08)
[2023-08-23] MEDS: ACETAMINOPHEN 1000 MG/100 ML BAG IVPB PRN (22:13)
[2023-08-24 09:19] LABS: BASO % 0.5 % (0-2.0); EOS % 3.3 % (0-4.5); HEMATOCRIT 31.4 % (32.4-45.2); HEMOGLOBIN 10.7 GM/dL (10.7-15.3); LYMPH % 37.5 % (8-40); MCH 30.8 pg (25.7-33.7); MCHC 34.1 g/dl (32.0-36.0); MEAN CELL VOLUME 90.4 fl (80-96); MEAN PLT VOLUME 7.1 fl (7.5-11.1); MONO % 5.6 % (3.8-10.2); NEUT % 53.1 % (42.8-82.8); PLATELET COUNT 195 10^3/uL (134-434); RBC 3.48 M/mm3 (3.60-5.2); RDW 12.7 % (11.6-15.6); WHITE BLOOD COUNT 4.7 K/mm3 (4.0-10.0)
[2023-08-24 09:28] LABS: POTASSIUM 3.8 mmol/L (3.5-5.1)
[2023-08-24 09:38] LABS: BLOOD UREA NITROGEN 10.2 mg/dL (7-18)
[2023-08-24 09:41] LABS: CREATININE 0.5 mg/dL (0.55-1.3)
[2023-08-24 09:43] LABS: CALCIUM 8.7 mg/dL (8.5-10.1)
[2023-08-24] MEDS ORDERED: MELATONIN 5 MG TABLETS PO PRN (13:15)
[2023-08-24] MEDS: SIMETHICONE 80 MG TAB.CHEW (FP) PO SCH (13:54)
[2023-08-24] MEDS ORDERED: BENZOCAINE/MENTH/CETYLPYRD CL 1 EACH LOZENGE MM PRN (17:30)
[2023-08-24] MEDS: diphenhydrAMINE HCL 25 MG CAPSULE (FP) PO ONE (18:00)
[2023-08-25 08:12] LABS: HEMATOCRIT 31.7 % (32.4-45.2); HEMOGLOBIN 10.8 GM/dL (10.7-15.3); MEAN CELL VOLUME 91.1 fl (80-96); MEAN PLT VOLUME 7.2 fl (7.5-11.1); PLATELET COUNT 202 10^3/uL (134-434); RBC 3.48 M/mm3 (3.60-5.2); RDW 12.9 % (11.6-15.6); WHITE BLOOD COUNT 5.3 K/mm3 (4.0-10.0)
[2023-08-25 08:21] LABS: POTASSIUM 3.6 mmol/L (3.5-5.1)
[2023-08-25 08:33] LABS: BLOOD UREA NITROGEN 11.3 mg/dL (7-18); CALCIUM 8.9 mg/dL (8.5-10.1)
[2023-08-25 08:36] LABS: CREATININE 0.6 mg/dL (0.55-1.3)
[2023-08-25 09:34] VITALS: BP 140/70; PULSE 58; TEMP 98.5
== END 2023-08-25 11:37 | disposition home or self-care (01) | DRG 248 ==
LOC: JER 11:18 → JERBED 16:24 → J5S 17:39 → OBSVTOIN 08-22 09:55
PROVIDERS: ADMIT Internal Medicine; ATTEND Internal Medicine
DX: A04.72 Enterocolitis due to Clostridium difficile, not specified as recurrent (principal); E83.42 Hypomagnesemia; I10 Essential (primary) hypertension; F25.9 Schizoaffective disorder, unspecified; E78.5 Hyperlipidemia, unspecified; F17.200 Nicotine dependence, unspecified, uncomplicated; F31.9 Bipolar disorder, unspecified; G47.00 Insomnia, unspecified; K21.9 Gastro-esophageal reflux disease without esophagitis; K58.9 Irritable bowel syndrome, unspecified; M79.7 Fibromyalgia; R11.2 Nausea with vomiting, unspecified; F41.8 Other specified anxiety disorders
CPT/HCPCS: 0241U-QW; 36415; 72100-TC-FY; 74019-TC-FY; 74177-TC; 80048; 80053; 81003; 83605; 83735; 84100; 85025; 85027; 87045; 87046; 87086; 87324; 87449; 87493; 93005; 93010; 99285-25; G0378; J0131; Q9967

== ENCOUNTER 2023-09-01 14:39 | Emergency (ER) | payer OTHER ==
[2023-09-01 15:11] VITALS: BP 149/87; PULSE 76; RESP 18; TEMP 98.5; BMI 27.4
[2023-09-01] MEDS ORDERED: morphine SULFATE 4 MG/ML VIAL ONE (16:58)
[2023-09-01] MEDS: morphine CARPU-JECT 2 MG/1 ML DISP.SYRIN IM ONE (17:04)
[2023-09-01] MEDS ORDERED: ACETAMINOPHEN INJECTION 100 ML IVPB ONE (18:52)
[2023-09-01] MEDS: ACETAMINOPHEN 1000 MG/100 ML BAG IVPB ONE (19:09)
== END 2023-09-01 20:20 | disposition home or self-care (01) ==
LOC: JER 14:39
PROC: 3E033NZ Introduction of Analgesics, Hypnotics, Sedatives into Peripheral Vein, Percutaneous Approach (ICD-10-PCS; principal; 2023-09-01)
PROC: 3E013NZ Introduction of Analgesics, Hypnotics, Sedatives into Subcutaneous Tissue, Percutaneous Approach (ICD-10-PCS; 2023-09-01)
DX: M25.511 Pain in right shoulder (principal); M25.512 Pain in left shoulder; G89.29 Other chronic pain; M79.10 Myalgia, unspecified site
CPT/HCPCS: 99284-25; J0131

== ENCOUNTER 2023-09-19 16:49 | Observation (INO) | payer OTHER ==
[2023-09-19 17:02] VITALS: BMI 27.4
[2023-09-19] MEDS ORDERED: ACETAMINOPHEN INJECTION 100 ML IVPB ONE (17:59)
[2023-09-19] MEDS: ACETAMINOPHEN 1000 MG/100 ML BAG IVPB ONE (18:09)
[2023-09-19] MEDS ORDERED: morphine SULFATE 4 MG/ML VIAL ONE (18:49)
[2023-09-19] MEDS: morphine CARPU-JECT 4 MG/1 ML DISP.SYRIN IVPUSH ONE (18:54)
[2023-09-19 20:17] LABS: BASO % 1.3 % (0-2.0); HEMATOCRIT 35.7 % (32.4-45.2); HEMOGLOBIN 12.2 GM/dL (10.7-15.3); LYMPH % 36.6 % (8-40); MCH 31.1 pg (25.7-33.7); MCHC 34.2 g/dl (32.0-36.0); MEAN CELL VOLUME 90.8 fl (80-96); MONO % 4.7 % (3.8-10.2); NEUT % 55.4 % (42.8-82.8); PLATELET COUNT 213 10^3/uL (134-434); RBC 3.93 M/mm3 (3.60-5.2); RDW 13.2 % (11.6-15.6); WHITE BLOOD COUNT 7.7 K/mm3 (4.0-10.0)
[2023-09-19 20:42] LABS: POTASSIUM 3.6 mmol/L (3.5-5.1)
[2023-09-19 20:45] LABS: ALBUMIN 4.3 g/dl (3.4-5.0); CALCIUM 9.2 mg/dL (8.5-10.1)
[2023-09-19 20:46] LABS: BLOOD UREA NITROGEN 8.9 mg/dL (7-18)
[2023-09-19 20:48] LABS: CREATININE 0.6 mg/dL (0.55-1.3)
[2023-09-19 20:50] LABS: BILIRUBIN,TOTAL 0.3 mg/dL (0.2-1); TOT PROT 7.7 g/dl (6.4-8.2)
[2023-09-20] MEDS ORDERED: MELATONIN 5 MG TABLETS ONE (01:27)
[2023-09-20] MEDS: morphine CARPU-JECT 8 MG/1 ML DISP.SYRIN IVPUSH ONE (01:32)
[2023-09-20] MEDS ORDERED: SERTRALINE HCL 50 MG TABLET (FP) PO SCH ×2 (01:51→22:00)
[2023-09-20] MEDS ORDERED: traZODone HCL 100 MG TABLET (FP) PO SCH (01:51)
[2023-09-20] MEDS: MELATONIN 5 MG TABLETS PO ONE (02:02)
[2023-09-20] MEDS: PANTOPRAZOLE 40 MG TABLET PO SCH (02:14)
[2023-09-20] MEDS ORDERED: traMADol HCL 50 MG TABLET PO PRN ×2 (02:14→02:17)
[2023-09-20] MEDS ORDERED: GABAPENTIN 100 MG CAPSULE PO SCH (02:21)
[2023-09-20] MEDS ORDERED: GABAPENTIN 100 MG CAPSULE ONE ×2 (04:57→09:04)
[2023-09-20] MEDS: GABAPENTIN 100 MG CAPSULE PO ONE (05:42)
[2023-09-20] MEDS: diphenhydrAMINE HCL 25 MG CAPSULE (FP) PO ONE (05:42)
[2023-09-20] MEDS ORDERED: carBAMazepine 200 MG TABLET ONE ×2 (06:26→14:09)
[2023-09-20] MEDS: carBAMazepine 200 MG TABLET PO SCH (06:31)
[2023-09-20 07:46] LABS: POTASSIUM 3.3 mmol/L (3.5-5.1)
[2023-09-20 07:53] LABS: CALCIUM 8.8 mg/dL (8.5-10.1)
[2023-09-20 07:54] LABS: ALBUMIN 3.9 g/dl (3.4-5.0); BLOOD UREA NITROGEN 11.1 mg/dL (7-18); MAGNESIUM 1.7 mg/dL (1.8-2.4)
[2023-09-20 07:57] LABS: CREATININE 0.5 mg/dL (0.55-1.3); PHOSPHOROUS 4.8 mg/dL (2.5-4.9)
[2023-09-20 07:58] LABS: TOT PROT 6.9 g/dl (6.4-8.2)
[2023-09-20 07:59] LABS: BILIRUBIN,TOTAL 0.3 mg/dL (0.2-1)
[2023-09-20 08:05] LABS: HEMATOCRIT 33.1 % (32.4-45.2); HEMOGLOBIN 11.3 GM/dL (10.7-15.3); MCH 30.8 pg (25.7-33.7); MCHC 34.2 g/dl (32.0-36.0); MEAN PLT VOLUME 7.4 fl (7.5-11.1); PLATELET COUNT 192 10^3/uL (134-434); RBC 3.68 M/mm3 (3.60-5.2); RDW 13.2 % (11.6-15.6); WHITE BLOOD COUNT 5.8 K/mm3 (4.0-10.0)
[2023-09-20] MEDS ORDERED: PANTOPRAZOLE 40 MG TABLET PO ONE (09:03)
[2023-09-20] MEDS ORDERED: LOSARTAN POTASSIUM 50 MG TABLET ONE (09:04)
[2023-09-20] MEDS ORDERED: ENOXAPARIN NA (PORCINE) 40 MG/0.4 ML DISP.SYRIN SQ ONE (09:04)
[2023-09-20] MEDS ORDERED: amLODIPine BESYLATE 10 MG TABLET (FP) ONE (09:04)
[2023-09-20] MEDS: HYDROCHLOROTHIAZIDE 12.5 MG CAPSULE (FP) PO SCH (09:11)
[2023-09-20] MEDS: amLODIPine BESYLATE 10 MG TABLET (FP) PO SCH (09:11)
[2023-09-20] MEDS: ENOXAPARIN NA (PORCINE) 40 MG/0.4 ML DISP.SYRIN SQ SCH (09:11)
[2023-09-20] MEDS: GABAPENTIN 100 MG CAPSULE PO SCH (09:11)
[2023-09-20] MEDS: LOSARTAN POTASSIUM 50 MG TABLET PO SCH (09:11)
[2023-09-20] MEDS ORDERED: PATIENT'S OWN MEDICATION (NON-FORMULARY) (Losartan Potassium [Cozaar] 100 MG Tablet) PO SCH (10:00)
[2023-09-20] MEDS ORDERED: HYDROCHLOROTHIAZIDE 12.5 MG CAPSULE (FP) PO SCH (10:00)
[2023-09-20] MEDS ORDERED: amLODIPine BESYLATE 10 MG TABLET (FP) PO SCH (10:00)
[2023-09-20 10:26] VITALS: RESP 16; TEMP 98.3
[2023-09-20] MEDS ORDERED: LORazepam 1 MG TABLET ONE (11:26)
[2023-09-20] MEDS ORDERED: SIMETHICONE 80 MG TAB.CHEW (FP) ONE (11:26)
[2023-09-20] MEDS ORDERED: ACETAMINOPHEN INJECTION 100 ML IVPB ONE (11:26)
[2023-09-20] MEDS: SIMETHICONE 80 MG TAB.CHEW (FP) PO PRN (11:37)
[2023-09-20] MEDS: LORazepam 1 MG TABLET PO PRN (11:37)
[2023-09-20] MEDS: ACETAMINOPHEN 1000 MG/100 ML BAG IVPB PRN (12:00)
[2023-09-20 12:38] VITALS: BP 132/70; PULSE 58
[2023-09-20] MEDS ORDERED: traZODone HCL 150 MG TABLET PO SCH (22:00)
[2023-09-20] MEDS ORDERED: ATORVASTATIN CA 40 MG TABLET (FP) PO SCH (22:00)
[2023-09-20] MEDS ORDERED: PATIENT'S OWN MEDICATION (NON-FORMULARY) (Omeprazole [Omeprazole] 20 MG Tablet.Dr) PO SCH (22:00)
== END 2023-09-20 14:26 | disposition home or self-care (01) ==
LOC: JER 16:49 → JERBED 21:13
PROVIDERS: ADMIT Internal Medicine; ATTEND Internal Medicine
PROC: 3E033NZ Introduction of Analgesics, Hypnotics, Sedatives into Peripheral Vein, Percutaneous Approach (ICD-10-PCS; principal; 2023-09-19)
PROC: 3E023GC Introduction of Other Therapeutic Substance into Muscle, Percutaneous Approach (ICD-10-PCS; 2023-09-19)
PROC: 3E033NZ Introduction of Analgesics, Hypnotics, Sedatives into Peripheral Vein, Percutaneous Approach (ICD-10-PCS; 2023-09-19)
DX: M25.561 Pain in right knee (principal); M54.9 Dorsalgia, unspecified; M79.7 Fibromyalgia; F31.9 Bipolar disorder, unspecified; V03.19XA Pedestrian with other conveyance injured in collision with car, pick-up truck or van in traffic accident, initial encounter; Y93.89 Activity, other specified; Y92.481 Parking lot as the place of occurrence of the external cause; K58.9 Irritable bowel syndrome, unspecified; F41.9 Anxiety disorder, unspecified; M54.30 Sciatica, unspecified side; K21.9 Gastro-esophageal reflux disease without esophagitis; E78.00 Pure hypercholesterolemia, unspecified; J45.909 Unspecified asthma, uncomplicated; J44.9 Chronic obstructive pulmonary disease, unspecified; G89.29 Other chronic pain; F17.200 Nicotine dependence, unspecified, uncomplicated; Z88.5 Allergy status to narcotic agent; Z88.8 Allergy status to other drugs, medicaments and biological substances
CPT/HCPCS: 36415; 73560-TC-RT-FY; 80053; 82962; 83735; 84100; 85025; 85027; 86140; 93005; 93010; 96372; 96374; 96376; 99285-25; G0378; J0131

== ENCOUNTER 2023-10-03 00:16 | Emergency (ER) | payer OTHER ==
[2023-10-03 00:32] VITALS: BMI 30.2
[2023-10-03] MEDS ORDERED: ACETAMINOPHEN INJECTION 100 ML IVPB ONE (02:05)
[2023-10-03] MEDS: ACETAMINOPHEN 1000 MG/100 ML BAG IVPB ONE (02:30)
[2023-10-03 02:39] LABS: EOS % 2.1 % (0-4.5); HEMATOCRIT 34.3 % (32.4-45.2); HEMOGLOBIN 11.5 GM/dL (10.7-15.3); LYMPH % 39.6 % (8-40); MCH 30.9 pg (25.7-33.7); MCHC 33.4 g/dl (32.0-36.0); MEAN CELL VOLUME 92.3 fl (80-96); MONO % 5.3 % (3.8-10.2); PLATELET COUNT 219 10^3/uL (134-434); RBC 3.71 M/mm3 (3.60-5.2); RDW 13.3 % (11.6-15.6); WHITE BLOOD COUNT 5.9 K/mm3 (4.0-10.0)
[2023-10-03 02:53] LABS: POTASSIUM 3.7 mmol/L (3.5-5.1)
[2023-10-03 02:56] LABS: ALBUMIN 3.9 g/dl (3.4-5.0); BLOOD UREA NITROGEN 14.6 mg/dL (7-18)
[2023-10-03 02:59] LABS: CREATININE 0.5 mg/dL (0.55-1.3)
[2023-10-03 03:01] LABS: BILIRUBIN,TOTAL 0.1 mg/dL (0.2-1); TOT PROT 7.4 g/dl (6.4-8.2)
[2023-10-03] MEDS ORDERED: MORPHINE SULFATE 2 MG/ML SYRINGE ONE (03:38)
[2023-10-03] MEDS: morphine CARPU-JECT 2 MG/1 ML DISP.SYRIN IVPUSH ONE (03:49)
[2023-10-03 03:59] LABS: URINE APPEARANCE CLEAR; URINE BILIRUBIN NEGATIVE (NEGATIVE); URINE COLOR DK YELLOW; URINE GLUCOSE (UA) NEGATIVE (NEGATIVE); URINE KETONE NEGATIVE (NEGATIVE); URINE LEUK ESTERASE NEGATIVE (NEGATIVE); URINE NITRITE NEGATIVE (NEGATIVE); URINE PROTEIN NEGATIVE (NEGATIVE)
[2023-10-03 05:13] VITALS: BP 139/50; PULSE 61; RESP 17; TEMP 98.5
== END 2023-10-03 05:37 | disposition home or self-care (01) ==
LOC: JER 00:16
PROC: 3E033NZ Introduction of Analgesics, Hypnotics, Sedatives into Peripheral Vein, Percutaneous Approach (ICD-10-PCS; principal; 2023-10-03)
PROC: 3E033NZ Introduction of Analgesics, Hypnotics, Sedatives into Peripheral Vein, Percutaneous Approach (ICD-10-PCS; 2023-10-03)
DX: S00.83XA Contusion of other part of head, initial encounter (principal); M62.830 Muscle spasm of back; M54.2 Cervicalgia; M54.9 Dorsalgia, unspecified; M79.10 Myalgia, unspecified site; R10.31 Right lower quadrant pain; W06.XXXA Fall from bed, initial encounter; Y92.009 Unspecified place in unspecified non-institutional (private) residence as the place of occurrence of the external cause
CPT/HCPCS: 36415; 70450-TC; 72125-TC; 72128-TC; 72131-TC; 80053; 81003; 85025; 87086; 93005; 93010; 99285-25; J0131

== ENCOUNTER 2023-10-05 14:54 | Emergency (ER) | payer OTHER ==
[2023-10-05 15:56] VITALS: BP 127/61; PULSE 62; RESP 18; TEMP 98.1; BMI 31.1
[2023-10-05] MEDS ORDERED: GABAPENTIN 300 MG CAPSULE ONE (16:32)
[2023-10-05] MEDS ORDERED: ACETAMINOPHEN INJECTION 100 ML IVPB ONE (16:32)
[2023-10-05] MEDS: ACETAMINOPHEN 1000 MG/100 ML BAG IVPB ONE (16:47)
[2023-10-05] MEDS: GABAPENTIN 300 MG CAPSULE PO ONE (16:47)
[2023-10-05 16:50] LABS: BASO % 0.7 % (0-2.0); HEMATOCRIT 33.2 % (32.4-45.2); HEMOGLOBIN 11.1 GM/dL (10.7-15.3); LYMPH % 36.8 % (8-40); MCH 30.7 pg (25.7-33.7); MCHC 33.3 g/dl (32.0-36.0); MEAN PLT VOLUME 6.7 fl (7.5-11.1); MONO % 4.4 % (3.8-10.2); NEUT % 56.1 % (42.8-82.8); PLATELET COUNT 209 10^3/uL (134-434); RBC 3.61 M/mm3 (3.60-5.2); RDW 13.3 % (11.6-15.6); WHITE BLOOD COUNT 6.8 K/mm3 (4.0-10.0)
[2023-10-05] MEDS ORDERED: MORPHINE SULFATE 2 MG/ML SYRINGE ONE (17:49)
[2023-10-05] MEDS: morphine CARPU-JECT 4 MG/1 ML DISP.SYRIN IVPUSH ONE (17:54)
[2023-10-05 17:57] LABS: POTASSIUM 3.8 mmol/L (3.5-5.1)
[2023-10-05 17:59] LABS: CALCIUM 9.3 mg/dL (8.5-10.1)
[2023-10-05 18:00] LABS: ALBUMIN 4.2 g/dl (3.4-5.0); BLOOD UREA NITROGEN 10.7 mg/dL (7-18)
[2023-10-05 18:03] LABS: CREATININE 0.6 mg/dL (0.55-1.3)
[2023-10-05 18:05] LABS: BILIRUBIN,TOTAL 0.3 mg/dL (0.2-1)
[2023-10-05 18:07] LABS: TOT PROT 7.6 g/dl (6.4-8.2)
== END 2023-10-05 19:20 | disposition home or self-care (01) ==
LOC: JER 14:54
PROC: 3E033NZ Introduction of Analgesics, Hypnotics, Sedatives into Peripheral Vein, Percutaneous Approach (ICD-10-PCS; principal; 2023-10-05)
PROC: 3E033NZ Introduction of Analgesics, Hypnotics, Sedatives into Peripheral Vein, Percutaneous Approach (ICD-10-PCS; 2023-10-05)
DX: R53.83 Other fatigue (principal); M79.10 Myalgia, unspecified site; M54.2 Cervicalgia; M54.6 Pain in thoracic spine; M25.511 Pain in right shoulder; M25.512 Pain in left shoulder; M79.7 Fibromyalgia; G89.29 Other chronic pain
CPT/HCPCS: 36415; 80053; 82550; 82553; 84484; 85025; 99284-25; J0131

== ENCOUNTER 2023-10-19 13:13 | Emergency (ER) | payer OTHER ==
[2023-10-19 13:24] VITALS: BP 155/84; PULSE 79; RESP 16; TEMP 97.9; BMI 30.2
[2023-10-19] MEDS ORDERED: ACETAMINOPHEN INJECTION 100 ML IVPB ONE (14:33)
[2023-10-19] MEDS ORDERED: diazePAM 5 MG TABLET ONE (14:33)
[2023-10-19] MEDS ORDERED: DEXAMETHASONE SOD PHOSPHATE 10 MG/1 ML VIAL ONE (14:33)
[2023-10-19] MEDS ORDERED: FAMOTIDINE 20 MG/50 ML IVPB 20 MG/50 ML MG IVPB ONE (14:33)
[2023-10-19] MEDS: FAMOTIDINE 20 MG/50 ML IVPB 20 MG/50 ML MG IVPB ONE (14:43)
[2023-10-19] MEDS: DEXAMETHASONE SOD PHOSPHATE 10 MG/1 ML VIAL IVPUSH ONE (14:43)
[2023-10-19] MEDS: diazePAM 5 MG TABLET PO ONE (14:43)
[2023-10-19] MEDS: ACETAMINOPHEN 1000 MG/100 ML BAG IVPB ONE (14:43)
[2023-10-19] MEDS ORDERED: MORPHINE SULFATE 2 MG/ML SYRINGE ONE (15:36)
[2023-10-19] MEDS: morphine CARPU-JECT 2 MG/1 ML DISP.SYRIN IVPUSH ONE (15:40)
== END 2023-10-19 17:25 | disposition home or self-care (01) ==
LOC: JERFT 13:13
PROC: 3E033GC Introduction of Other Therapeutic Substance into Peripheral Vein, Percutaneous Approach (ICD-10-PCS; principal; 2023-10-19)
PROC: 3E033NZ Introduction of Analgesics, Hypnotics, Sedatives into Peripheral Vein, Percutaneous Approach (ICD-10-PCS; 2023-10-19)
PROC: 3E033GC Introduction of Other Therapeutic Substance into Peripheral Vein, Percutaneous Approach (ICD-10-PCS; 2023-10-19)
PROC: 3E033NZ Introduction of Analgesics, Hypnotics, Sedatives into Peripheral Vein, Percutaneous Approach (ICD-10-PCS; 2023-10-19)
DX: M79.604 Pain in right leg (principal); M79.605 Pain in left leg; M54.9 Dorsalgia, unspecified; G89.29 Other chronic pain
CPT/HCPCS: 96365; 96375; 99284-25; J0131; J1100

== ENCOUNTER 2023-11-02 15:06 | Observation (INO) | payer OTHER ==
[2023-11-02 15:19] VITALS: TEMP 98.2; BMI 27.4
[2023-11-02] MEDS ORDERED: MORPHINE SULFATE 2 MG/ML SYRINGE ONE (17:10)
[2023-11-02] MEDS ORDERED: ACETAMINOPHEN INJECTION 100 ML IVPB ONE (17:10)
[2023-11-02 17:20] LABS: BASO % 0.8 % (0-2.0); EOS % 1.6 % (0-4.5); HEMATOCRIT 35.3 % (32.4-45.2); HEMOGLOBIN 11.9 GM/dL (10.7-15.3); LYMPH % 38.6 % (8-40); MCH 30.4 pg (25.7-33.7); MCHC 33.7 g/dl (32.0-36.0); MEAN CELL VOLUME 90.1 fl (80-96); MEAN PLT VOLUME 7.2 fl (7.5-11.1); PLATELET COUNT 214 10^3/uL (134-434); RBC 3.92 M/mm3 (3.60-5.2); RDW 13.2 % (11.6-15.6); WHITE BLOOD COUNT 6.2 K/mm3 (4.0-10.0)
[2023-11-02 17:26] LABS: INR 1.15 (0.83-1.09); PROTHROMBIN TIME (PATIENT) 12.9 SEC (9.7-13.0)
[2023-11-02] MEDS: morphine CARPU-JECT 4 MG/1 ML DISP.SYRIN IVPUSH ONE (17:27)
[2023-11-02] MEDS: ACETAMINOPHEN 1000 MG/100 ML BAG IVPB ONE (17:28)
[2023-11-02 17:37] LABS: POTASSIUM 3.8 mmol/L (3.5-5.1)
[2023-11-02 17:40] LABS: ALBUMIN 4.4 g/dl (3.4-5.0); BLOOD UREA NITROGEN 7.7 mg/dL (7-18); CALCIUM 9.3 mg/dL (8.5-10.1)
[2023-11-02 17:43] LABS: CREATININE 0.6 mg/dL (0.55-1.3)
[2023-11-02 17:45] LABS: BILIRUBIN,TOTAL 0.3 mg/dL (0.2-1); TOT PROT 7.8 g/dl (6.4-8.2)
[2023-11-02] MEDS ORDERED: ONDANSETRON 4 MG/2 ML VIAL ONE (19:50)
[2023-11-02] MEDS: ONDANSETRON 4 MG/2 ML VIAL IVPUSH ONE (20:32)
[2023-11-02] MEDS: oxyCODONE HCL 5 MG TABLET PO ONE (20:33)
[2023-11-02] MEDS ORDERED: morphine SULFATE 4 MG/ML VIAL ONE (20:33)
[2023-11-02] MEDS: morphine CARPU-JECT 2 MG/1 ML DISP.SYRIN SQ ONE (20:40)
[2023-11-02 21:26] VITALS: BP 174/80; PULSE 62; RESP 16
== END 2023-11-02 23:37 | disposition home or self-care (01) ==
LOC: JER 15:06 → JERBED 20:30
PROVIDERS: ADMIT Internal Medicine; ATTEND Internal Medicine
PROC: 3E033NZ Introduction of Analgesics, Hypnotics, Sedatives into Peripheral Vein, Percutaneous Approach (ICD-10-PCS; principal; 2023-11-02)
PROC: 3E023NZ Introduction of Analgesics, Hypnotics, Sedatives into Muscle, Percutaneous Approach (ICD-10-PCS; 2023-11-02)
PROC: 3E033GC Introduction of Other Therapeutic Substance into Peripheral Vein, Percutaneous Approach (ICD-10-PCS; 2023-11-02)
DX: G89.4 Chronic pain syndrome (principal); M79.7 Fibromyalgia; G62.9 Polyneuropathy, unspecified; F41.8 Other specified anxiety disorders; F31.9 Bipolar disorder, unspecified; M54.30 Sciatica, unspecified side; F17.210 Nicotine dependence, cigarettes, uncomplicated
CPT/HCPCS: 0241U-QW; 36415; 71046-TC-FY; 73030-TC-RT-FY; 80053; 84484; 85025; 85610; 85730; 93005; 93010; 96372; 96374; 99285-25; G0378; J0131

== ENCOUNTER 2023-11-03 15:56 | Observation (INO) | payer OTHER ==
[2023-11-03 16:02] VITALS: BMI 30.2
[2023-11-03] MEDS: ACETAMINOPHEN 500 MG TABLET (FP) PO ONE (20:17)
[2023-11-03] MEDS ORDERED: ACETAMINOPHEN INJECTION 100 ML IVPB ONE (20:41)
[2023-11-03] MEDS: ACETAMINOPHEN 1000 MG/100 ML BAG IVPB ONE (20:50)
[2023-11-03 20:56] LABS: BASO % 1.1 % (0-2.0); EOS % 2.2 % (0-4.5); HEMATOCRIT 35.1 % (32.4-45.2); HEMOGLOBIN 11.9 GM/dL (10.7-15.3); LYMPH % 38.9 % (8-40); MCH 30.8 pg (25.7-33.7); MCHC 33.9 g/dl (32.0-36.0); MEAN CELL VOLUME 90.9 fl (80-96); MEAN PLT VOLUME 7.2 fl (7.5-11.1); MONO % 3.5 % (3.8-10.2); NEUT % 54.3 % (42.8-82.8); PLATELET COUNT 217 10^3/uL (134-434); RBC 3.87 M/mm3 (3.60-5.2); RDW 12.9 % (11.6-15.6); WHITE BLOOD COUNT 5.2 K/mm3 (4.0-10.0)
[2023-11-03 21:12] LABS: POTASSIUM 3.2 mmol/L (3.5-5.1)
[2023-11-03 21:13] LABS: CALCIUM 8.8 mg/dL (8.5-10.1)
[2023-11-03 21:14] LABS: ALBUMIN 4.4 g/dl (3.4-5.0); BLOOD UREA NITROGEN 6.7 mg/dL (7-18)
[2023-11-03 21:17] LABS: CREATININE 0.6 mg/dL (0.55-1.3)
[2023-11-03 21:19] LABS: BILIRUBIN,TOTAL 0.3 mg/dL (0.2-1); TOT PROT 7.8 g/dl (6.4-8.2)
[2023-11-03] MEDS ORDERED: diphenhydrAMINE HCL 25 MG CAPSULE (FP) PO ONE (21:22)
[2023-11-03] MEDS: diphenhydrAMINE HCL 25 MG CAPSULE (FP) PO ONE (21:25)
[2023-11-03] MEDS ORDERED: morphine SULFATE 10 MG/5 ML UNIT-DOSE CUP ONE (23:18)
[2023-11-03] MEDS: morphine SULFATE 10 MG/5 ML UNIT-DOSE CUP PO ONE (23:23)
[2023-11-03] MEDS ORDERED: morphine SULFATE 10 MG/5 ML UNIT-DOSE CUP PO ONE (23:30)
[2023-11-04] MEDS: MELATONIN 5 MG TABLETS PO PRN (03:29)
[2023-11-04 07:10] LABS: HEMATOCRIT 34.6 % (32.4-45.2); HEMOGLOBIN 11.7 GM/dL (10.7-15.3); MCH 30.7 pg (25.7-33.7); MCHC 33.7 g/dl (32.0-36.0); MEAN CELL VOLUME 91.3 fl (80-96); MEAN PLT VOLUME 7.5 fl (7.5-11.1); PLATELET COUNT 207 10^3/uL (134-434); RBC 3.79 M/mm3 (3.60-5.2); RDW 13.2 % (11.6-15.6); WHITE BLOOD COUNT 5.4 K/mm3 (4.0-10.0)
[2023-11-04 07:30] LABS: POTASSIUM 3.1 mmol/L (3.5-5.1)
[2023-11-04 07:32] LABS: CALCIUM 8.6 mg/dL (8.5-10.1)
[2023-11-04] MEDS ORDERED: LORazepam 1 MG TABLET PO PRN (07:32)
[2023-11-04 07:33] LABS: BLOOD UREA NITROGEN 8.9 mg/dL (7-18)
[2023-11-04 07:36] LABS: CREATININE 0.5 mg/dL (0.55-1.3)
[2023-11-04 07:37] LABS: BILIRUBIN,TOTAL 0.4 mg/dL (0.2-1); TOT PROT 7.2 g/dl (6.4-8.2)
[2023-11-04] MEDS: POTASSIUM CHLORIDE ORAL LIQUID 20 MEQ/15 ML PO ONE (09:47)
[2023-11-04] MEDS: ENOXAPARIN NA (PORCINE) 40 MG/0.4 ML DISP.SYRIN SQ SCH (09:47)
[2023-11-04] MEDS: HYDROCHLOROTHIAZIDE 12.5 MG CAPSULE (FP) PO SCH (09:47)
[2023-11-04] MEDS: LOSARTAN POTASSIUM 50 MG TABLET PO SCH (09:47)
[2023-11-04] MEDS: ACETAMINOPHEN 500 MG TABLET (FP) PO ONE (09:48)
[2023-11-04] MEDS: amLODIPine BESYLATE 10 MG TABLET (FP) PO SCH (09:48)
[2023-11-04] MEDS: LIDOCAINE 5% TOPICAL PATCH TP SCH (09:49)
[2023-11-04] MEDS: MAGNESIUM SULF 50% (8.12 MEQ/2 ML-1 GM VIAL) IVPB ONE (12:39)
[2023-11-04] MEDS: carBAMazepine 200 MG TABLET PO SCH ×2 (12:39→23:18)
[2023-11-04] MEDS: ACETAMINOPHEN 1000 MG/100 ML BAG IVPB PRN (12:41)
[2023-11-04] MEDS: morphine SULFATE 10 MG/5 ML UNIT-DOSE CUP PO ONE (12:42)
[2023-11-04] MEDS: PANTOPRAZOLE 40 MG TABLET PO SCH (14:34)
[2023-11-04 17:04] LABS: POTASSIUM 3.8 mmol/L (3.5-5.1)
[2023-11-04 17:06] LABS: CALCIUM 8.5 mg/dL (8.5-10.1)
[2023-11-04 17:07] LABS: BLOOD UREA NITROGEN 8.4 mg/dL (7-18)
[2023-11-04 17:10] LABS: CREATININE 0.6 mg/dL (0.55-1.3)
[2023-11-04 17:11] LABS: BILIRUBIN,TOTAL 0.2 mg/dL (0.2-1)
[2023-11-04 17:12] LABS: TOT PROT 7.4 g/dl (6.4-8.2)
[2023-11-04] MEDS ORDERED: traZODone HCL 50 MG TABLET (FP) PO SCH (22:00)
[2023-11-04] MEDS ORDERED: carBAMazepine 200 MG TABLET PO SCH (22:00)
[2023-11-04] MEDS: ATORVASTATIN CA 40 MG TABLET (FP) PO SCH (22:22)
[2023-11-04] MEDS: SERTRALINE HCL 50 MG TABLET (FP) PO SCH (22:22)
[2023-11-04] MEDS: traZODone HCL 50 MG TABLET (FP) PO SCH (22:22)
[2023-11-04] MEDS: LIDOCAINE PATCH REMOVAL MC SCH (22:26)
[2023-11-05] MEDS: LOSARTAN POTASSIUM 50 MG TABLET PO ONE (06:32)
[2023-11-05 09:34] LABS: HEMATOCRIT 35.3 % (32.4-45.2); HEMOGLOBIN 12.2 GM/dL (10.7-15.3); MCH 31.2 pg (25.7-33.7); MCHC 34.5 g/dl (32.0-36.0); MEAN CELL VOLUME 90.3 fl (80-96); MEAN PLT VOLUME 7.1 fl (7.5-11.1); PLATELET COUNT 217 10^3/uL (134-434); RBC 3.91 M/mm3 (3.60-5.2); RDW 13.3 % (11.6-15.6); WHITE BLOOD COUNT 6.8 K/mm3 (4.0-10.0)
[2023-11-05 09:55] LABS: POTASSIUM 3.5 mmol/L (3.5-5.1)
[2023-11-05 10:09] LABS: BLOOD UREA NITROGEN 8.8 mg/dL (7-18); MAGNESIUM 1.9 mg/dL (1.8-2.4)
[2023-11-05 10:10] LABS: ALBUMIN 3.9 g/dl (3.4-5.0); CREATININE 0.7 mg/dL (0.55-1.3); PHOSPHOROUS 3.9 mg/dL (2.5-4.9)
[2023-11-05 10:11] LABS: BILIRUBIN,TOTAL 0.4 mg/dL (0.2-1); TOT PROT 7.3 g/dl (6.4-8.2)
[2023-11-05] MEDS: SIMETHICONE 80 MG TAB.CHEW (FP) PO PRN (10:24)
[2023-11-05] MEDS: hydrALAZINE HCL 25 MG TABLET (FP) PO SCH (14:15)
[2023-11-05 15:14] VITALS: RESP 18
[2023-11-05] MEDS: GLYCERIN 1 RECTAL SUPPOSITORY, ADULT RC ONE (15:33)
[2023-11-05] MEDS: ACETAMINOPHEN 1000 MG/100 ML BAG IVPB PRN (17:04)
[2023-11-05] MEDS: hydrALAZINE HCL 25 MG TABLET (FP) PO ONE (17:54)
[2023-11-05] MEDS: POLYETHYLENE GLYCOL (HEALTHYLAX) 3350 17 GM PACKET PO SCH ×2 (17:54→21:34)
[2023-11-05] MEDS: morphine SULFATE 10 MG/5 ML UNIT-DOSE CUP PO PRN (21:35)
[2023-11-06] MEDS: GLYCERIN 1 RECTAL SUPPOSITORY, ADULT RC ONE (06:20)
[2023-11-06 09:13] LABS: POTASSIUM 3.6 mmol/L (3.5-5.1)
[2023-11-06 09:16] LABS: ALBUMIN 3.9 g/dl (3.4-5.0); MAGNESIUM 1.8 mg/dL (1.8-2.4)
[2023-11-06 09:17] LABS: BLOOD UREA NITROGEN 7.4 mg/dL (7-18)
[2023-11-06 09:19] LABS: CREATININE 0.5 mg/dL (0.55-1.3); HEMATOCRIT 33.3 % (32.4-45.2); MCH 32.1 pg (25.7-33.7); MCHC 35.9 g/dl (32.0-36.0); MEAN CELL VOLUME 89.5 fl (80-96); MEAN PLT VOLUME 7.3 fl (7.5-11.1); PLATELET COUNT 206 10^3/uL (134-434); RBC 3.72 M/mm3 (3.60-5.2); WHITE BLOOD COUNT 5.8 K/mm3 (4.0-10.0)
[2023-11-06 09:20] LABS: PHOSPHOROUS 4.1 mg/dL (2.5-4.9)
[2023-11-06 09:21] LABS: BILIRUBIN,TOTAL 0.3 mg/dL (0.2-1); TOT PROT 7.1 g/dl (6.4-8.2)
[2023-11-06 10:03] VITALS: BP 136/78; PULSE 80; TEMP 98.8
[2023-11-06] MEDS: LOSARTAN POTASSIUM 50 MG TABLET PO SCH (10:10)
== END 2023-11-06 13:24 | disposition home or self-care (01) ==
LOC: JER 15:56 → JERFT 15:56 → JERBED 19:50 → J4W 11-04 03:12 → J5S 11-04 20:11
PROVIDERS: ADMIT Internal Medicine; ATTEND Internal Medicine
PROC: 3E033NZ Introduction of Analgesics, Hypnotics, Sedatives into Peripheral Vein, Percutaneous Approach (ICD-10-PCS; principal; 2023-11-03)
PROC: 3E023GC Introduction of Other Therapeutic Substance into Muscle, Percutaneous Approach (ICD-10-PCS; 2023-11-03)
PROC: 3E033GC Introduction of Other Therapeutic Substance into Peripheral Vein, Percutaneous Approach (ICD-10-PCS; 2023-11-03)
DX: M79.7 Fibromyalgia (principal); R79.89 Other specified abnormal findings of blood chemistry; Z29.89 Encounter for other specified prophylactic measures; G89.4 Chronic pain syndrome; F41.8 Other specified anxiety disorders; F31.9 Bipolar disorder, unspecified; M54.30 Sciatica, unspecified side; F11.90 Opioid use, unspecified, uncomplicated; Z88.8 Allergy status to other drugs, medicaments and biological substances
CPT/HCPCS: 36415; 74018-TC-FY; 80053; 83735; 84100; 84484; 85025; 85027; 93005; 93010; 93971-TC; 96372; 96374; 96375; 96376; 99285-25; G0378; J0131

== ENCOUNTER 2023-11-21 22:44 | Emergency (ER) | payer OTHER ==
[2023-11-21 23:18] VITALS: BP 120/67; PULSE 67; RESP 18; TEMP 98.8; BMI 27.0
[2023-11-22] MEDS ORDERED: ONDANSETRON 4 MG/2 ML VIAL ONE (00:53)
[2023-11-22 01:00] LABS: BASO % 0.8 % (0-2.0); EOS % 1.4 % (0-4.5); HEMATOCRIT 32.9 % (32.4-45.2); HEMOGLOBIN 11.5 GM/dL (10.7-15.3); LYMPH % 24.7 % (8-40); MCH 31.4 pg (25.7-33.7); MEAN CELL VOLUME 89.6 fl (80-96); MONO % 4.3 % (3.8-10.2); NEUT % 68.8 % (42.8-82.8); PLATELET COUNT 208 10^3/uL (134-434); RBC 3.67 M/mm3 (3.60-5.2); WHITE BLOOD COUNT 7.9 K/mm3 (4.0-10.0)
[2023-11-22] MEDS: ONDANSETRON 4 MG/2 ML VIAL IVPUSH ONE (01:02)
[2023-11-22] MEDS: SODIUM CHLORIDE 1,000 ML IV STA (01:02)
[2023-11-22 01:25] LABS: POTASSIUM 3.3 mmol/L (3.5-5.1)
[2023-11-22 01:28] LABS: ALBUMIN 4.2 g/dl (3.4-5.0); BLOOD UREA NITROGEN 11.3 mg/dL (7-18); MAGNESIUM 1.6 mg/dL (1.8-2.4)
[2023-11-22 01:31] LABS: CREATININE 0.6 mg/dL (0.55-1.3)
[2023-11-22 01:32] LABS: BILIRUBIN,TOTAL 0.3 mg/dL (0.2-1)
[2023-11-22 01:33] LABS: PH,URINE 5.5 (5.0-8.0); URINE APPEARANCE CLEAR; URINE BILIRUBIN NEGATIVE (NEGATIVE); URINE COLOR YELLOW; URINE GLUCOSE (UA) NEGATIVE (NEGATIVE); URINE KETONE NEGATIVE (NEGATIVE); URINE LEUK ESTERASE NEGATIVE (NEGATIVE); URINE NITRITE NEGATIVE (NEGATIVE); URINE PROTEIN NEGATIVE (NEGATIVE); URINE UROBILINOGEN 0.2 mg/dL (0.2-1.0)
[2023-11-22 01:33] LABS: TOT PROT 7.5 g/dl (6.4-8.2)
[2023-11-22 01:49] LABS: INR 1.06 (0.83-1.09); PROTHROMBIN TIME (PATIENT) 12.2 SEC (9.7-13.0)
[2023-11-22 01:52] LABS: ACTIVATED PTT 26.7 SECONDS (25.2-36.5)
== END 2023-11-22 03:30 | disposition home or self-care (01) ==
LOC: JER 22:44
PROC: 3E033GC Introduction of Other Therapeutic Substance into Peripheral Vein, Percutaneous Approach (ICD-10-PCS; principal; 2023-11-22)
PROC: 3E0337Z Introduction of Electrolytic and Water Balance Substance into Peripheral Vein, Percutaneous Approach (ICD-10-PCS; 2023-11-22)
DX: R55 Syncope and collapse (principal); M25.512 Pain in left shoulder; R51.9 Headache, unspecified; R11.2 Nausea with vomiting, unspecified; H53.149 Visual discomfort, unspecified; R10.13 Epigastric pain; R10.32 Left lower quadrant pain; R07.89 Other chest pain; G89.29 Other chronic pain; W01.198A Fall on same level from slipping, tripping and stumbling with subsequent striking against other object, initial encounter
CPT/HCPCS: 36415; 70450-TC; 71045-TC-FY; 72125-TC; 73030-TC-LT-FY; 80053; 81003; 83735; 84484; 85025; 85610; 85730; 87086; 93005; 93010; 99285-25

== ENCOUNTER 2023-12-06 11:44 | Observation (INO) | payer OTHER ==
[2023-12-06] MEDS ORDERED: ACETAMINOPHEN INJECTION 100 ML ONE (12:41)
[2023-12-06] MEDS ORDERED: METOCLOPRAMIDE HCL INJECTION 10 MG/2 ML VIAL ONE (12:41)
[2023-12-06] MEDS: ACETAMINOPHEN 1000 MG/100 ML BAG IVPB ONE (12:49)
[2023-12-06 12:53] LABS: BASO % 0.4 % (0-2.0); EOS % 1.3 % (0-4.5); HEMATOCRIT 35.1 % (32.4-45.2); HEMOGLOBIN 11.6 GM/dL (10.7-15.3); LYMPH % 28.2 % (8-40); MCH 30.4 pg (25.7-33.7); MCHC 33.1 g/dl (32.0-36.0); MONO % 3.6 % (3.8-10.2); NEUT % 66.5 % (42.8-82.8); PLATELET COUNT 215 10^3/uL (134-434); RBC 3.82 M/mm3 (3.60-5.2); WHITE BLOOD COUNT 5.2 K/mm3 (4.0-10.0)
[2023-12-06 12:59] LABS: INR 1.11 (0.83-1.09); PROTHROMBIN TIME (PATIENT) 12.5 SEC (9.7-13.0)
[2023-12-06 13:02] LABS: ACTIVATED PTT 32.5 SECONDS (25.2-36.5)
[2023-12-06] MEDS: METOCLOPRAMIDE HCL INJECTION 10 MG/2 ML VIAL IVPUSH ONE (13:02)
[2023-12-06] MEDS: ALPRAZolam 1 MG TABLET PO PRN (13:02)
[2023-12-06] MEDS: SODIUM CHLORIDE 0.9% 500 ML INFUS.BAG IV ONE (13:02)
[2023-12-06 13:07] LABS: PH,URINE 6.5 (5.0-8.0); URINE APPEARANCE CLEAR; URINE BILIRUBIN NEGATIVE (NEGATIVE); URINE COLOR YELLOW; URINE GLUCOSE (UA) NEGATIVE (NEGATIVE); URINE KETONE TRACE (NEGATIVE); URINE LEUK ESTERASE NEGATIVE (NEGATIVE); URINE NITRITE NEGATIVE (NEGATIVE); URINE PROTEIN NEGATIVE (NEGATIVE)
[2023-12-06 13:11] LABS: CALCIUM 9.2 mg/dL (8.5-10.1)
[2023-12-06 13:12] LABS: ALBUMIN 4.1 g/dl (3.4-5.0); BLOOD UREA NITROGEN 7.8 mg/dL (7-18)
[2023-12-06 13:15] LABS: CREATININE 0.6 mg/dL (0.55-1.3)
[2023-12-06 13:16] LABS: BILIRUBIN,TOTAL 0.3 mg/dL (0.2-1); TOT PROT 7.5 g/dl (6.4-8.2)
[2023-12-06] MEDS ORDERED: ONDANSETRON 4 MG/2 ML VIAL ONE (13:32)
[2023-12-06] MEDS ORDERED: FAMOTIDINE 20 MG/50 ML IVPB 20 MG/50 ML MG IVPB ONE (13:33)
[2023-12-06] MEDS: FAMOTIDINE 20 MG/50 ML IVPB 20 MG/50 ML MG IVPB ONE (13:40)
[2023-12-06] MEDS: ONDANSETRON 4 MG/2 ML VIAL IVPUSH ONE (13:40)
[2023-12-06] MEDS: SODIUM CHLORIDE 1,000 ML IV SCH (18:32)
[2023-12-06] MEDS ORDERED: ACETAMINOPHEN 325 MG TABLET (FP) ONE (19:06)
[2023-12-06] MEDS ORDERED: MORPHINE SULFATE 2 MG/ML SYRINGE ONE (19:36)
[2023-12-06] MEDS ORDERED: diphenhydrAMINE HCL 25 MG CAPSULE (FP) PO ONE (19:36)
[2023-12-06] MEDS: MORPHINE SULFATE 2 MG/ML SYRINGE IV PRN (19:39)
[2023-12-06] MEDS: diphenhydrAMINE HCL 25 MG CAPSULE (FP) PO PRN (19:39)
[2023-12-06] MEDS: hydrALAZINE HCL 25 MG TABLET (FP) PO SCH (21:30)
[2023-12-06] MEDS: ATORVASTATIN CA 40 MG TABLET (FP) PO SCH (21:30)
[2023-12-06] MEDS: traZODone HCL 50 MG TABLET (FP) PO SCH (21:30)
[2023-12-06] MEDS: ONDANSETRON 4 MG/2 ML VIAL IVPUSH PRN (21:30)
[2023-12-06] MEDS: carBAMazepine 200 MG TABLET PO SCH (21:30)
[2023-12-06] MEDS ORDERED: PATIENT'S OWN MEDICATION (NON-FORMULARY) (Tenapanor Hcl [Ibsrela] 50 MG Tablet) PO SCH (22:00)
[2023-12-07] MEDS: ACETAMINOPHEN 325 MG TABLET (FP) PO PRN (06:15)
[2023-12-07 07:50] LABS: BASO % 0.8 % (0-2.0); EOS % 2.5 % (0-4.5); HEMATOCRIT 30.8 % (32.4-45.2); HEMOGLOBIN 10.2 GM/dL (10.7-15.3); LYMPH % 41.5 % (8-40); MCH 30.8 pg (25.7-33.7); MCHC 33.3 g/dl (32.0-36.0); MEAN CELL VOLUME 92.7 fl (80-96); MEAN PLT VOLUME 7.2 fl (7.5-11.1); NEUT % 50.2 % (42.8-82.8); PLATELET COUNT 190 10^3/uL (134-434); RBC 3.32 M/mm3 (3.60-5.2); RDW 13.9 % (11.6-15.6); WHITE BLOOD COUNT 4.4 K/mm3 (4.0-10.0)
[2023-12-07 08:11] LABS: POTASSIUM 3.8 mmol/L (3.5-5.1)
[2023-12-07 08:24] LABS: ALBUMIN 3.5 g/dl (3.4-5.0); CALCIUM 8.7 mg/dL (8.5-10.1)
[2023-12-07 08:25] LABS: BLOOD UREA NITROGEN 7.3 mg/dL (7-18)
[2023-12-07 08:28] LABS: CREATININE 0.6 mg/dL (0.55-1.3)
[2023-12-07 08:29] LABS: BILIRUBIN,TOTAL 0.7 mg/dL (0.2-1); TOT PROT 6.3 g/dl (6.4-8.2)
[2023-12-07] MEDS: LIPASE/PROTEASE/AMYLASE 36,000 UNIT CAPSULE PO SCH (08:45)
[2023-12-07] MEDS: PANTOPRAZOLE 40 MG TABLET PO SCH (09:59)
[2023-12-07] MEDS: LOSARTAN POTASSIUM 50 MG TABLET PO SCH (09:59)
[2023-12-07] MEDS: SERTRALINE HCL 50 MG TABLET (FP) PO SCH (09:59)
[2023-12-07] MEDS: amLODIPine BESYLATE 10 MG TABLET (FP) PO SCH (09:59)
[2023-12-07] MEDS: ENOXAPARIN NA (PORCINE) 40 MG/0.4 ML DISP.SYRIN SQ SCH (10:00)
[2023-12-07] MEDS: ALPRAZolam 1 MG TABLET PO PRN (10:00)
[2023-12-07] MEDS: ACETAMINOPHEN 1000 MG/100 ML BAG IVPB ONE (10:17)
[2023-12-07] MEDS: metoPROLOL SUCCINATE 25 MG TAB.SR.24H (FP) PO SCH (13:26)
[2023-12-07 13:43] VITALS: BMI 27.7
[2023-12-07] MEDS: VANCOMYCIN ORAL SOLUTION 125 MG/2.5 ML PO SCH (17:33)
[2023-12-08 07:52] LABS: BASO % 0.6 % (0-2.0); EOS % 2.6 % (0-4.5); HEMATOCRIT 30.9 % (32.4-45.2); HEMOGLOBIN 10.6 GM/dL (10.7-15.3); LYMPH % 42.5 % (8-40); MCH 31.5 pg (25.7-33.7); MCHC 34.4 g/dl (32.0-36.0); MEAN CELL VOLUME 91.7 fl (80-96); MEAN PLT VOLUME 7.4 fl (7.5-11.1); MONO % 4.8 % (3.8-10.2); NEUT % 49.5 % (42.8-82.8); PLATELET COUNT 194 10^3/uL (134-434); RBC 3.37 M/mm3 (3.60-5.2); RDW 13.4 % (11.6-15.6); WHITE BLOOD COUNT 4.4 K/mm3 (4.0-10.0)
[2023-12-08 08:14] LABS: POTASSIUM 3.5 mmol/L (3.5-5.1)
[2023-12-08 08:31] LABS: CALCIUM 8.9 mg/dL (8.5-10.1)
[2023-12-08 08:32] LABS: ALBUMIN 3.8 g/dl (3.4-5.0); BLOOD UREA NITROGEN 8.9 mg/dL (7-18)
[2023-12-08 08:35] LABS: CREATININE 0.5 mg/dL (0.55-1.3)
[2023-12-08 08:36] LABS: BILIRUBIN,TOTAL 0.2 mg/dL (0.2-1); TOT PROT 6.7 g/dl (6.4-8.2)
[2023-12-08] MEDS: POTASSIUM CHLORIDE ORAL LIQUID 20 MEQ/15 ML PO ONE (09:18)
[2023-12-08] MEDS: MAGNESIUM CITRATE 300 ML BOTTLE PO ONE (21:56)
[2023-12-09 01:32] VITALS: RESP 18
[2023-12-09] MEDS: MAGNESIUM CITRATE 300 ML BOTTLE PO ONE (03:45)
[2023-12-09 08:31] LABS: BASO % 0.7 % (0-2.0); EOS % 2.1 % (0-4.5); HEMATOCRIT 30.7 % (32.4-45.2); HEMOGLOBIN 10.5 GM/dL (10.7-15.3); LYMPH % 29.8 % (8-40); MCH 31.4 pg (25.7-33.7); MCHC 34.2 g/dl (32.0-36.0); MEAN CELL VOLUME 91.8 fl (80-96); MEAN PLT VOLUME 7.4 fl (7.5-11.1); MONO % 4.1 % (3.8-10.2); NEUT % 63.3 % (42.8-82.8); PLATELET COUNT 194 10^3/uL (134-434); RBC 3.34 M/mm3 (3.60-5.2); RDW 13.7 % (11.6-15.6); WHITE BLOOD COUNT 4.9 K/mm3 (4.0-10.0)
[2023-12-09 08:57] LABS: CALCIUM 8.8 mg/dL (8.5-10.1)
[2023-12-09 08:58] LABS: ALBUMIN 3.7 g/dl (3.4-5.0); BLOOD UREA NITROGEN 9.6 mg/dL (7-18); MAGNESIUM 2.2 mg/dL (1.8-2.4)
[2023-12-09 09:01] LABS: CREATININE 0.5 mg/dL (0.55-1.3)
[2023-12-09 09:02] LABS: BILIRUBIN,TOTAL 0.2 mg/dL (0.2-1); TOT PROT 6.6 g/dl (6.4-8.2)
[2023-12-09] MEDS: ACETAMINOPHEN 650 MG/20.3 ML ORAL SOLUTION (CUPS) PO PRN (09:25)
[2023-12-09] MEDS ORDERED: SIMETHICONE 80 MG TAB.CHEW (FP) PO PRN (10:00)
[2023-12-09 10:21] VITALS: TEMP 98.2
[2023-12-09] MEDS ORDERED: ACETAMINOPHEN 1000 MG/100 ML BAG IVPB PRN (10:27)
[2023-12-09 11:22] VITALS: BP 165/74; PULSE 58
[2023-12-09] MEDS: SODIUM PHOSPHATE/NA BIPHOS 133 ML ENEMA RC ONE (12:00)
[2023-12-09] MEDS: LIDOCAINE 5% TOPICAL PATCH TP SCH (12:05)
[2023-12-09] MEDS: carBAMazepine 200 MG TABLET PO SCH (12:06)
[2023-12-09] MEDS ORDERED: LIDOCAINE PATCH REMOVAL MC SCH (22:00)
[2023-12-09] MEDS ORDERED: SERTRALINE HCL 50 MG TABLET (FP) PO SCH (22:00)
[2023-12-09] MEDS ORDERED: carBAMazepine 200 MG TABLET PO SCH (22:00)
== END 2023-12-09 15:54 | disposition home or self-care (01) ==
LOC: JER 11:44 → JERBED 17:01 → J4S 20:24
PROVIDERS: ADMIT Internal Medicine; ATTEND Nurse Practitioner Family
PROC: 3E033NZ Introduction of Analgesics, Hypnotics, Sedatives into Peripheral Vein, Percutaneous Approach (ICD-10-PCS; principal; 2023-12-06)
DX: K58.0 Irritable bowel syndrome with diarrhea (principal); R19.7 Diarrhea, unspecified; R10.13 Epigastric pain; K21.9 Gastro-esophageal reflux disease without esophagitis; Z29.89 Encounter for other specified prophylactic measures; R79.89 Other specified abnormal findings of blood chemistry; F32.A Depression, unspecified; F41.9 Anxiety disorder, unspecified; Z86.19 Personal history of other infectious and parasitic diseases; I10 Essential (primary) hypertension; E78.5 Hyperlipidemia, unspecified; Z88.8 Allergy status to other drugs, medicaments and biological substances
CPT/HCPCS: 0241U-QW; 36415; 70450-TC; 71045-TC-FY; 74176-TC; 80053; 81003; 83605; 83690; 83735; 84484; 85025; 85610; 85730; 87045; 87046; 87086; 87324; 87449; 87493; 93005; 93010; 93306-TC; 96361; 96365; 96372; 96375; 96376; 97116-GP; 97161-GP; 99285-25; G0378; J0131

== ENCOUNTER 2024-02-23 10:03 | Emergency (ER) | payer OTHER ==
[2024-02-23 10:19] VITALS: RESP 18; TEMP 98.4; BMI 26.2
[2024-02-23] MEDS ORDERED: morphine SULFATE 4 MG/ML VIAL ONE (10:28)
[2024-02-23] MEDS ORDERED: ACETAMINOPHEN INJECTION 100 ML ONE (10:28)
[2024-02-23] MEDS ORDERED: METOCLOPRAMIDE HCL INJECTION 10 MG/2 ML VIAL ONE (10:28)
[2024-02-23] MEDS: morphine CARPU-JECT 4 MG/1 ML DISP.SYRIN IVPUSH ONE (10:30)
[2024-02-23] MEDS: METOCLOPRAMIDE HCL INJECTION 10 MG/2 ML VIAL IVPUSH ONE (10:30)
[2024-02-23] MEDS: ACETAMINOPHEN 1000 MG/100 ML BAG IVPB ONE (10:30)
[2024-02-23 11:10] LABS: BASO % 1.7 % (0-2.0); EOS % 1.4 % (0-4.5); HEMATOCRIT 34.8 % (32.4-45.2); HEMOGLOBIN 11.5 GM/dL (10.7-15.3); LYMPH % 38.2 % (8-40); MCH 29.2 pg (25.7-33.7); MCHC 33.1 g/dl (32.0-36.0); MEAN CELL VOLUME 88.3 fl (80-96); MEAN PLT VOLUME 7.6 fl (7.5-11.1); MONO % 4.5 % (3.8-10.2); NEUT % 54.2 % (42.8-82.8); PLATELET COUNT 261 10^3/uL (134-434); RBC 3.94 M/mm3 (3.60-5.2); RDW 13.7 % (11.6-15.6); WHITE BLOOD COUNT 4.2 K/mm3 (4.0-10.0)
[2024-02-23 11:20] LABS: POTASSIUM 3.7 mmol/L (3.5-5.1)
[2024-02-23 11:39] LABS: ALBUMIN 4.1 g/dl (3.4-5.0)
[2024-02-23 11:40] LABS: BILIRUBIN,TOTAL 0.3 mg/dL (0.2-1); BLOOD UREA NITROGEN 7.6 mg/dL (7-18)
[2024-02-23 11:41] LABS: TOT PROT 8.2 g/dl (6.4-8.2)
[2024-02-23 11:42] LABS: CALCIUM 9.7 mg/dL (8.5-10.1); CREATININE 0.6 mg/dL (0.55-1.3)
[2024-02-23 12:36] VITALS: BP 149/72; PULSE 59
== END 2024-02-23 12:37 | disposition home or self-care (01) ==
LOC: JER 10:03
PROC: 3E033NZ Introduction of Analgesics, Hypnotics, Sedatives into Peripheral Vein, Percutaneous Approach (ICD-10-PCS; principal; 2024-02-23)
PROC: 3E033GC Introduction of Other Therapeutic Substance into Peripheral Vein, Percutaneous Approach (ICD-10-PCS; 2024-02-23)
PROC: 3E033NZ Introduction of Analgesics, Hypnotics, Sedatives into Peripheral Vein, Percutaneous Approach (ICD-10-PCS; 2024-02-23)
DX: G43.909 Migraine, unspecified, not intractable, without status migrainosus (principal); M79.10 Myalgia, unspecified site; R10.9 Unspecified abdominal pain; G89.29 Other chronic pain
CPT/HCPCS: 36415; 71045-TC-FY; 80053; 84484; 85025; 93005; 93010; 99285-25; J0131

== ENCOUNTER 2024-09-16 18:29 | Emergency (ER) | payer OTHER ==
[2024-09-16 18:39] VITALS: TEMP 98.8; BMI 27.6
[2024-09-16 19:45] LABS: URINE APPEARANCE CLEAR; URINE BILIRUBIN NEGATIVE (NEGATIVE); URINE COLOR YELLOW; URINE GLUCOSE (UA) NEGATIVE (NEGATIVE); URINE KETONE TRACE (NEGATIVE); URINE LEUK ESTERASE NEGATIVE (NEGATIVE); URINE NITRITE NEGATIVE (NEGATIVE); URINE PROTEIN TRACE (NEGATIVE); URINE UROBILINOGEN 0.2 mg/dL (0.2-1.0)
[2024-09-16] MEDS ORDERED: ACETAMINOPHEN INJECTION 100 ML ONE (19:46)
[2024-09-16] MEDS ORDERED: morphine SULFATE 4 MG/ML VIAL ONE (19:46)
[2024-09-16] MEDS ORDERED: MORPHINE SULFATE 2 MG/ML SYRINGE ONE (19:46)
[2024-09-16] MEDS: ACETAMINOPHEN 1000 MG/100 ML BAG IVPB ONE (20:05)
[2024-09-16] MEDS: morphine SULFATE 4 MG/ML VIAL IVPUSH ONE (20:10)
[2024-09-16 20:13] LABS: HEMATOCRIT 26.7 % (34.1-44.9); HEMOGLOBIN 8.3 g/dL (11.2-15.7); MCHC 31.1 g/dl (32.2-35.5); MEAN CELL VOLUME 87.8 fl (79.4-94.8); MEAN PLT VOLUME 10.1 fl (9.4-12.3); PLATELET COUNT 248 x10^3/uL (182-369); RDW 14.7 % (12.4-16.4)
[2024-09-16 20:34] VITALS: BP 126/56; PULSE 60; RESP 22
[2024-09-16 21:05] LABS: CALCIUM 9.5 mg/dL (8.5-10.1)
[2024-09-16 21:06] LABS: ALBUMIN 3.5 g/dl (3.4-5.0); BLOOD UREA NITROGEN 15.3 mg/dL (7-18); MAGNESIUM 1.7 mg/dL (1.8-2.4)
[2024-09-16 21:09] LABS: CREATININE 0.8 mg/dL (0.55-1.3)
[2024-09-16 21:10] LABS: BILIRUBIN,TOTAL 0.2 mg/dL (0.2-1)
[2024-09-16] MEDS ORDERED: LORazepam 1 MG TABLET ONE (22:20)
[2024-09-16] MEDS: LORazepam 2 MG TABLET PO ONE (22:22)
== END 2024-09-16 22:46 | disposition home or self-care (01) ==
LOC: JER 18:29
PROC: 3E033NZ Introduction of Analgesics, Hypnotics, Sedatives into Peripheral Vein, Percutaneous Approach (ICD-10-PCS; principal; 2024-09-16)
PROC: 3E033NZ Introduction of Analgesics, Hypnotics, Sedatives into Peripheral Vein, Percutaneous Approach (ICD-10-PCS; 2024-09-16)
DX: M54.2 Cervicalgia (principal); M79.601 Pain in right arm; M79.602 Pain in left arm; M79.604 Pain in right leg; M79.605 Pain in left leg; G89.29 Other chronic pain; R10.30 Lower abdominal pain, unspecified; R20.2 Paresthesia of skin; R30.0 Dysuria; W01.198A Fall on same level from slipping, tripping and stumbling with subsequent striking against other object, initial encounter
CPT/HCPCS: 36415; 70450-TC; 72125-TC; 80053; 81003; 83735; 84484; 85025; 87086; 93005; 93010; 99285-25

== ENCOUNTER 2024-10-06 17:25 | Observation (INO) | payer OTHER ==
[2024-10-06] MEDS ORDERED: ONDANSETRON 4 MG/2 ML VIAL ONE (18:25)
[2024-10-06] MEDS ORDERED: ACETAMINOPHEN INJECTION 100 ML ONE (18:25)
[2024-10-06] MEDS ORDERED: FAMOTIDINE 20 MG/50 ML IVPB 20 MG/50 ML MG IVPB ONE (18:25)
[2024-10-06] MEDS: ACETAMINOPHEN 1000 MG/100 ML BAG IVPB ONE (18:46)
[2024-10-06] MEDS: FAMOTIDINE 20 MG/50 ML IVPB 20 MG/50 ML MG IVPB ONE (18:46)
[2024-10-06] MEDS: ONDANSETRON 4 MG/2 ML VIAL IVPB ONE (18:46)
[2024-10-06 18:58] LABS: ABSOLUTE IMMATURE GRANULOCYTES 0.03 x10^3/uL (0.0-0.031); BASOPHILS # 0.06 x10^3/uL (0.01-0.08); EOSINOPHIL % 0.2 % (0.7-5.8); EOSINOPHILS # 0.02 x10^3/uL (0.04-0.36); HEMATOCRIT 31.8 % (34.1-44.9); HEMOGLOBIN 9.7 g/dL (11.2-15.7); MCHC 30.5 g/dl (32.2-35.5); MEAN CELL VOLUME 84.4 fl (79.4-94.8); MEAN PLT VOLUME 9.6 fl (9.4-12.3); MONOCYTE % 5.4 % (4.7-12.5); PLATELET COUNT 222 x10^3/uL (182-369); RDW 15.2 % (12.4-16.4)
[2024-10-06 18:59] LABS: PH,URINE 6.5 (5.0-8.0); URINE APPEARANCE CLEAR; URINE BILIRUBIN NEGATIVE (NEGATIVE); URINE COLOR YELLOW; URINE GLUCOSE (UA) NEGATIVE (NEGATIVE); URINE KETONE NEGATIVE (NEGATIVE); URINE LEUK ESTERASE NEGATIVE (NEGATIVE); URINE NITRITE NEGATIVE (NEGATIVE); URINE PROTEIN NEGATIVE (NEGATIVE); URINE UROBILINOGEN 0.2 mg/dL (0.2-1.0)
[2024-10-06 19:30] LABS: CALCIUM 9.5 mg/dL (8.5-10.1)
[2024-10-06 19:31] LABS: BLOOD UREA NITROGEN 12.3 mg/dL (7-18)
[2024-10-06 19:34] LABS: CREATININE 0.9 mg/dL (0.55-1.3)
[2024-10-06 19:35] LABS: BILIRUBIN,TOTAL 0.3 mg/dL (0.2-1); TOT PROT 7.6 g/dl (6.4-8.2)
[2024-10-06] MEDS ORDERED: POTASSIUM CHLORIDE TABS 20 MEQ TABLET.ER (FP) PO ONE (20:09)
[2024-10-06] MEDS ORDERED: MAGNESIUM SULFATE IN WATER 2 GM/50 ML IVPB IVPB ONE (20:10)
[2024-10-06 20:21] LABS: HIV INTERPRETATION NEGATIVE (NEGATIVE)
[2024-10-06 20:22] LABS: HCV DIAGNOSTIC IN-HOUSE W/RFLX NON-REACTIVE (NONREACTIVE)
[2024-10-06] MEDS: MAGNESIUM SULF 50% (8.12 MEQ/2 ML-1 GM VIAL) IVPB ONE (20:38)
[2024-10-06] MEDS: POTASSIUM CHLORIDE TABS 20 MEQ TABLET.ER (FP) PO ONE (20:38)
[2024-10-06] MEDS ORDERED: BENZONATATE 200 MG CAPSULE PO ONE (21:12)
[2024-10-06] MEDS: BENZONATATE 200 MG CAPSULE PO ONE (21:18)
[2024-10-06] MEDS ORDERED: MORPHINE SULFATE 2 MG/ML SYRINGE ONE (22:21)
[2024-10-06] MEDS: morphine SULFATE 4 MG/ML VIAL IVPUSH ONE (22:49)
[2024-10-07] MEDS ORDERED: ALBUTEROL SO4 0.083% IH SOL 2.5 MG/3 ML VIAL.NEB. NEB PRN (01:13)
[2024-10-07] MEDS ORDERED: ACETAMINOPHEN 325 MG TABLET (FP) ONE (02:20)
[2024-10-07] MEDS ORDERED: oxyCODONE HCL 5 MG TABLET PO PRN (06:03)
[2024-10-07] MEDS ORDERED: ACETAMINOPHEN 500 MG TABLET (FP) ONE (06:16)
[2024-10-07] MEDS ORDERED: DOCUSATE SODIUM 100 MG CAPSULE (FP) PO ONE (06:17)
[2024-10-07] MEDS ORDERED: SIMETHICONE 80 MG TAB.CHEW (FP) ONE (06:17)
[2024-10-07] MEDS: SIMETHICONE 80 MG TAB.CHEW (FP) PO SCH (06:21)
[2024-10-07] MEDS: ACETAMINOPHEN 500 MG TABLET (FP) PO SCH (06:21)
[2024-10-07] MEDS: DOCUSATE SODIUM 100 MG CAPSULE (FP) PO SCH (06:21)
[2024-10-07 08:36] LABS: HEMATOCRIT 31.8 % (34.1-44.9); HEMOGLOBIN 9.8 g/dL (11.2-15.7); MCHC 30.8 g/dl (32.2-35.5); MEAN CELL VOLUME 84.4 fl (79.4-94.8); MEAN PLT VOLUME 9.9 fl (9.4-12.3); PLATELET COUNT 232 x10^3/uL (182-369); RDW 15.2 % (12.4-16.4)
[2024-10-07 08:58] LABS: POTASSIUM 3.5 mmol/L (3.5-5.1)
[2024-10-07 09:08] LABS: CALCIUM 9.7 mg/dL (8.5-10.1)
[2024-10-07 09:09] LABS: ALBUMIN 4.1 g/dl (3.4-5.0); BLOOD UREA NITROGEN 12.6 mg/dL (7-18); MAGNESIUM 1.7 mg/dL (1.8-2.4)
[2024-10-07 09:11] LABS: CREATININE 0.7 mg/dL (0.55-1.3)
[2024-10-07 09:12] LABS: BILIRUBIN,TOTAL 0.2 mg/dL (0.2-1); PHOSPHOROUS 4.2 mg/dL (2.5-4.9)
[2024-10-07 09:13] LABS: TOT PROT 7.6 g/dl (6.4-8.2)
[2024-10-07] MEDS: MAGNESIUM 2GM/50ML STERILE WATER IVPB IVPB ONE (09:40)
[2024-10-07] MEDS: amLODIPine BESYLATE 10 MG TABLET (FP) PO SCH (09:41)
[2024-10-07] MEDS: ENOXAPARIN NA (PORCINE) 40 MG/0.4 ML DISP.SYRIN SQ SCH (09:41)
[2024-10-07] MEDS: LOSARTAN POTASSIUM 50 MG TABLET PO SCH (09:41)
[2024-10-07] MEDS: FAMOTIDINE 20 MG TABLET PO SCH (09:41)
[2024-10-07] MEDS ORDERED: ACETAMINOPHEN 325 MG TABLET (FP) PO SCH (10:00)
[2024-10-07] MEDS ORDERED: ASPIRIN COATED 81 MG TABLET.EC PO SCH ×2 (10:00)
[2024-10-07] MEDS ORDERED: CLOPIDOGREL BISULFATE 75 MG TABLET (FP) PO SCH (10:00)
[2024-10-07] MEDS ORDERED: oxyCODONE HCL 5 MG TABLET PO SCH (10:00)
[2024-10-07] MEDS: BUDESONIDE/FORMETEROL FUMARATE 80/4.5 mcg INHALER IH SCH (11:15)
[2024-10-07] MEDS ORDERED: ACETAMINOPHEN 1000 MG/100 ML BAG IVPB PRN (11:43)
[2024-10-07] MEDS: LIDOCAINE 4% PATCH TP SCH (12:11)
[2024-10-07] MEDS: ACETAMINOPHEN 1000 MG/100 ML BAG IVPB PRN (12:13)
[2024-10-07] MEDS: guaiFENesin 600 MG TABLET.ER (FP) PO SCH (12:13)
[2024-10-07] MEDS: carBAMazepine 200 MG TABLET PO SCH (13:23)
[2024-10-07 16:23] VITALS: BMI 27.8
[2024-10-07] MEDS: NICOTINE POLACRILEX 4 MG GUM BUC PRN (16:28)
[2024-10-07] MEDS: BENZONATATE 200 MG CAPSULE PO SCH (17:15)
[2024-10-07] MEDS: LORazepam 4 MG/1 ML VIAL IVPUSH ONE (18:44)
[2024-10-07] MEDS: ATORVASTATIN CA 40 MG TABLET (FP) PO SCH (21:07)
[2024-10-07] MEDS: SERTRALINE HCL 50 MG TABLET (FP) PO SCH (21:07)
[2024-10-07] MEDS: traZODone HCL 100 MG, traZODone HCL 50 MG PO SCH (21:08)
[2024-10-07] MEDS: traZODone HCL 150 MG TABLET PO SCH (21:08)
[2024-10-07] MEDS: LIDOCAINE PATCH REMOVAL MC SCH (21:09)
[2024-10-08 07:11] LABS: POTASSIUM 3.5 mmol/L (3.5-5.1)
[2024-10-08 07:13] LABS: CALCIUM 9.6 mg/dL (8.5-10.1)
[2024-10-08 07:14] LABS: BLOOD UREA NITROGEN 7.1 mg/dL (7-18); MAGNESIUM 1.8 mg/dL (1.8-2.4)
[2024-10-08 07:17] LABS: CREATININE 0.6 mg/dL (0.55-1.3); PHOSPHOROUS 3.5 mg/dL (2.5-4.9)
[2024-10-08 07:18] LABS: BILIRUBIN,TOTAL 0.4 mg/dL (0.2-1)
[2024-10-08] MEDS ORDERED: PATIENT'S OWN MEDICATION (NON-FORMULARY) (Calcium Carbonate/Vitamin D3 [Calcium 600-Vit D3 PO SCH (10:00)
[2024-10-08 12:33] VITALS: RESP 15
[2024-10-08 14:30] VITALS: BP 112/67; PULSE 66; TEMP 98.2
[2024-10-08] MEDS: ACETAMINOPHEN 325 MG TABLET (FP) PO ONE (16:19)
== END 2024-10-08 17:40 | disposition home or self-care (01) ==
LOC: JER 17:25 → JERBED 21:57 → J4S 10-07 06:32
PROVIDERS: ADMIT Hospitalist; ATTEND Internal Medicine
PROC: 3E033NZ Introduction of Analgesics, Hypnotics, Sedatives into Peripheral Vein, Percutaneous Approach (ICD-10-PCS; principal; 2024-10-06)
DX: R07.89 Other chest pain (principal); F41.0 Panic disorder [episodic paroxysmal anxiety]; F12.90 Cannabis use, unspecified, uncomplicated; F31.9 Bipolar disorder, unspecified; R29.6 Repeated falls; J44.9 Chronic obstructive pulmonary disease, unspecified; E78.5 Hyperlipidemia, unspecified; I10 Essential (primary) hypertension; F41.8 Other specified anxiety disorders; M79.7 Fibromyalgia; E87.6 Hypokalemia; F17.210 Nicotine dependence, cigarettes, uncomplicated; Z88.5 Allergy status to narcotic agent; Z88.8 Allergy status to other drugs, medicaments and biological substances
CPT/HCPCS: 0241U-QW; 36415; 70450-TC; 71046-TC-FY; 80053; 81003; 82962; 83690; 83735; 84100; 84439; 84443; 84484; 85025; 85027; 86803; 87086; 87389; 93005; 93010; 96365; 96375; 96376; 99285-25; G0378